=== PATIENT | female | born 1940 | race Caucasian/White ===

== ENCOUNTER 2016-06-23 19:25 | Emergency (ER) | payer BC, MEDICARE ==
[~2016-06-23] VITALS: Ht 157.5 cm; Wt 68.0 kg
[~2016-06-23 19:25] MED LIST: AMIN30LI PO; ASPI81TA3 PO; ATOR20TA38 PO; CHOL400T10 PO; CLOP75TA27 PO; CNC30T PO; Carvedilol PO; DARB25VI IV; DOCU-159 PO; IRON100V IV; LOSA25TA2 PO; MEGE40TA17 PO; NEPH PO; PANT40TA3 PO; PARI2VIA IV; SEVE800T7 PO; TRAM50TA2 PO; ZOLP5TAB PO
[2016-06-23 19:44] VITALS: Ht 157.5 cm; Wt 68.0 kg
== END 2016-06-23 19:52 | disposition left against medical advice (07) ==
LOC: E/R 19:25
DX: Z53.21 Procedure and treatment not carried out due to patient leaving prior to being seen by health care provider (principal)

== ENCOUNTER 2016-07-04 22:12 | Inpatient (IN) | payer MEDICARE, BC ==
[~2016-07-04] VITALS: Ht 154.9 cm; Wt 71.5 kg
--- NOTE | 2016-07-04 23:22 | ERA ---
ER Documentation Chief Complaint Date/Time DATE: 07/04/16 TIME: 23:[address] Keen ask pt to come in for fever. pt on HD. Pain on the R knee HPI The patient is a 76-year-old female, presenting to the ER because of intermittent fever for the last 8 days, complains of abdominal pain today, and intermittent diarrhea for the last 4 days. He denies any hematochezia. The abdominal pain is diffuse in 5-10, worse with diarrhea. He denies headache, neck pain, chest pain, dyspnea, vomiting. She does not smoke nor drink. She was sent to the ER by her physician Dr. Keen Past medical history: Chronic kidney disease, CAD, history of non-STEMI, history of mitral valve regurgitation, dyslipidemia, GERD, hypertension Past surgical history: Cholecystectomy, hysterectomy, left upper extremity AV fistula ROS All systems reviewed and are negative except as per history of present illness. Medications Home Meds Active Scripts Clopidogrel Bisulfate (Clopidogrel) 75 Mg Tab, 75 MG PO DAILY for 30 Days Prov:TOAN HECK 02/07/15 [Carvedilol] 6.25 MG TAB No Conflict Check, 12.5 MG PO BID for 30 Days, TAB Prov:TOAN HECK 02/07/15 Atorvastatin Calcium* (Atorvastatin Calcium*) 20 Mg Tab, 40 MG PO HS for 30 Days Prov:TOAN HECK 02/07/15 Tramadol HCl (Tramadol HCl) 50 Mg Tab, 50 MG PO Q8 Y for PAIN, #10 TAB Prov:ROSLYN OLIVARES MD 01/10/15 Reported Medications Cinacalcet* (Sensipar*) 30 Mg Tab, 30 MG PO DAILY, TAB 01/10/15 Docusate Sodium* (Docusate Sodium*) 100 Mg Capsule, 100 MG PO DAILY, CAP 01/10/15 Cholecalciferol* (Vitamin D*) 400 Unit Tablet, 400 UNIT PO DAILY, TAB 01/10/15 Megestrol Acetate* (Megestrol Acetate*) 40 Mg Tablet, 40 MG PO BID, TAB 01/10/15 Zolpidem Tartrate* (Ambien*) 5 Mg Tablet, 5 MG PO HS MAY REPEAT X 1 Y for INSOMNIA, TAB 01/10/15 Amino Acids/Protein Hydrolys (Liquacel 100 Liquid Packet) 30 Ml Liquid.pkt, 30 ML PO Q SCHED DIALYSIS TRM 01/10/15 Darbepoetin Sulaiman In Polysorbat (Aranesp) 25 Mcg/Ml Vial, 25 MCG IV WEEKLY ON 1ST TRMT, VIAL 01/10/15 Iron Sucrose* (Venofer*) 100 Mg/5 Ml Vial, 50 MG IV WEEKLY ON 2ND TRMT, VIAL 01/10/15 Paricalcitol* (Zemplar*) 2 Mcg/Ml Vial, 2 MCG IV 1ST, 2ND,3RD TRMT, VIAL 01/10/15 Multivit/Ca Carb/B Cmplx/Fa* (Carmina-Boris*) 1 Tab Tab, 1 TAB PO DAILY, TAB 01/10/15 Sevelamer Carbonate* (Renvela*) 800 Mg Tablet, 800 MG PO TID 07/28/12 Pantoprazole* (Protonix*) 40 Mg Tablet.dr, 40 MG PO DAILY 07/28/12 Losartan Potassium* (Cozaar*) 25 Mg Tablet, 25 MG PO DAILY 07/28/12 Aspirin* (Aspirin* Chew) 81 Mg Tab.chew, 81 MG PO DAILY 07/28/12 Allergies Allergies: Coded Allergies: vancomycin (Verified Allergy, Unknown, 02/05/15) PMhx/Soc History of Surgery: Yes (cholecystectomy,total hysterectomy) Anesthesia Reaction: No Hx Neurological Disorder: No Hx Respiratory Disorders: No Hx Cardiac Disorders: Yes (HTN) Hx Psychiatric Problems: No Hx Miscellaneous Medical Probl: Yes (arthritis,osteoporosis,SAKSHI AVF, anuric, kidney failure) Hx Alcohol Use: No Hx Substance Use: No Hx Tobacco Use: No Smoking Status: Never smoker Physical Exam Vitals Vital Signs Date Time Temp Pulse Resp B/P Pulse Ox O2 Delivery O2 Flow Rate FiO2 07/05/16 02:13 98.4 07/04/16 22:53 99.9 88 20 117/61 98 Physical Exam Const: No acute distress. Head: Atraumatic. Eyes: Normal Conjunctiva. ENT: Normal External Ears, Nose and Mouth. Neck: Full range of motion. No meningismus. Resp: Clear to auscultation bilaterally. Cardio: Regular rate and rhythm, no murmurs. Abd: Soft, non distended, normal bowel sounds, diffuse abdominal tenderness, no rigidity, rebound, CVA tenderness Skin: No petechiae or rashes. Back: No midline or flank tenderness. Ext: No cyanosis, or edema. Neur: Awake and alert. No focal deficit Psych: Normal Mood and Affect. Result Diagram: 07/04/16 9968 07/04/16 2355 Results 24 hrs Laboratory Tests Test 07/04/16 23:50 07/04/16 23:55 07/05/16 01:30 Erythrocyte Sedimentation Rate 60mm/Hr White Blood Count 12.810^3/ul Red Blood Count 3.4910^6/ul Hemoglobin 10.4g/dl Hematocrit 32.7% Mean Corpuscular Volume 93.7fl Mean Corpuscular Hemoglobin 29.8pg Mean Corpuscular Hemoglobin Concent 31.8g/dl Red Cell Distribution Width 12.9% Platelet Count 04495^3/UL Mean Platelet Volume 9.7fl Neutrophils % 61.9% Lymphocytes % 22.5% Monocytes % 12.4% Eosinophils % 2.3% Basophils % 0.2% Nucleated Red Blood Cells % 0.0/100WBC Neutrophils # 8.010^3/ul Lymphocytes # 2.910^3/ul Monocytes # 1.610^3/ul Eosinophils # 0.310^3/ul Basophils # 0.010^3/ul Nucleated Red Blood Cells # 0.010^3/ul Prothrombin Time 13.7Sec Prothrombin Time Ratio 1.1 INR International Normalized Ratio 1.05 Activated Partial Thromboplast Time 25.8Sec Sodium Level 137mmol/L Potassium Level 4.6mmol/L Chloride Level 96mmol/L Carbon Dioxide Level 29mmol/L Anion Gap 17 Blood Urea Nitrogen 22mg/dl Creatinine 3.86mg/dl Glucose Level 106mg/dl Lactic Acid Level 2.5mmol/L 1.1mmol/L Calcium Level 8.7mg/dl Total Bilirubin 0.0mg/dl Direct Bilirubin 0.00mg/dl Indirect Bilirubin 0.0mg/dl Aspartate Amino Transf (AST/SGOT) 32IU/L Alanine Aminotransferase (ALT/SGPT) 17IU/L Alkaline Phosphatase 175IU/L Troponin I < 0.010ng/ml Total Protein 7.4g/dl Albumin 3.9g/dl Globulin 3.50g/dl Albumin/Globulin Ratio 1.11 Current Medications Medications (Trade) Dose Ordered Sig/Terra Route PRN Reason Start Time Stop Time Status Last Admin Dose Admin Piperacillin Sod/ Tazobactam Sod (Zosyn 2.25gm/ 50ml (Pmx)) 50 ml @ 100 mls/hr ONCE ONCE IVPB 07/05/16 02:30 07/05/16 02:59 DC 07/05/16 02:46 Procedures/MDM [place] [id number] Radiology Main Line: [phone] DIAGNOSTIC IMAGING REPORT Patient: FARSHAD RODRIGUEZ : 1940 Age: 76 Sex: F MR #: [id number] DOS: 07/04/162322 Ordering MD: ALYSON BRAND MD Location: E/R Room/Bed: PROCEDURE: XR Knee. CLINICAL INDICATION: Right knee pain. TECHNIQUE: Three views of the right knee. COMPARISON: None available FINDINGS: There is no acute fracture or dislocation. The lateral compartment demonstrates moderate to severe joint space narrowing, subchondral sclerosis, and moderate osteophytosis. There is minimal patellar osteophytosis. No joint effusion is identified. IMPRESSION: 1. No acute fracture or dislocation of the right knee. 2. Moderate to severe lateral compartment arthrosis. RPTAT: HTAR .Lorenzo Wilkins MD, Date Time Electronically viewed and signed by .Lorenzo Wilkins MD, MD on 07/05/2016 00:24 .R/ CC: ALYSON BRAND MD [place] [id number] Radiology Main Line: [phone] DIAGNOSTIC IMAGING REPORT Patient: FARSHAD RODRIGUEZ : 1940 Age: 76 Sex: F MR #: [id number] DOS: 07/04/162322 Ordering MD: ALYSON BRAND MD Location: E/R Room/Bed: PROCEDURE: Portable chest x-ray. CLINICAL INDICATION: Sepsis. TECHNIQUE: Portable AP view of the chest. COMPARISON: 02/05/2015. FINDINGS: There is vascular congestion, unchanged. No pulmonary edema or conolidation is identified. The cardiac silhouette is magnified. There are aortic calcifications. No pleural effusion is seen. There is no pneumothorax. IMPRESSION: 1. Central vascular congestion. 2. Aortic atherosclerosis. RPTAT: HTAR .Lorenzo Wilkins MD, MD Date Time Electronically viewed and signed by .Lorenzo Wilkins MD, MD on 07/05/2016 00:22 .R/ CC: ALYSON BRAND MD [place] [address] Radiology Main Line: [phone] DIAGNOSTIC IMAGING REPORT Patient: FARSHAD RODRIGUEZ : 1940 Age: 76 Sex: F MR #: [id number] DOS: 07/04/16 2352 Ordering MD: ALYSON BRAND MD Location: E/R Room/Bed: PROCEDURE: CT Abdomen and Pelvis without contrast. CLINICAL INDICATION: Abdominal pain, history of hysterectomy and cholecystectomy. TECHNIQUE: A CT scan of the abdomen and pelvis was performed without intravenous contrast. Coronal and sagittal reformatted images were generated. Images were reviewed on a high-resolution PACS workstation. CTDIvol: 14.46 mGy. DLP: 116.29 mGy-cm. One or more of the following dose reduction techniques were used: - Automated exposure control. - Adjustment of the mA and/or kV according to patient size. - Use of iterative reconstruction technique. COMPARISON: None. FINDINGS: There are mild to moderate atelectatic changes in both lower lungs. The heart is enlarged. Evaluation of the abdominal and pelvic viscera is limited by the lack of oral and intravenous contrast. The liver is unremarkable. The patient is status post cholecystectomy. There is mild extrahepatic biliary ductal dilatation (CBD: 10 mm), probably due to absence of the gallbladder. The spleen is not enlarged. No pancreatic lesion is identified and there is no pancreatic ductal dilatation. The adrenal glands are unremarkable. The kidneys are atrophic There is no perinephric fat stranding. No hydronephrosis is seen. No urinary stone is identified. There are cysts in both kidneys measuring up to 1.2 cm on the left. The small and large bowel are normal in caliber. There is no bowel wall thickening. The appendix is not identified. The urinary bladder is unremarkable. The patient is status post hysterectomy. No adnexal mass is seen. No lymphadenopathy is identified. There is no ascites. No pneumoperitoneum is seen. There are moderate arterial calcifications. There are calcified injection granulomas in the subcutaneous fat of both buttocks. There is periumbilical diastasis recti. No suspicious osseous lesion is idenitified. IMPRESSION: 1. No inflammation, mass, or lymphadenopathy. 2. Atrophic kidneys without hydronephrosis or urinary stones. 3. The appendix is not identified. 4. Status post cholecystectomy and hysterectomy. 5. Moderate atherosclerotic arterial calcifications. 6. Cardiomegaly. 7. Periumbilical diastasis recti. RPTAT: HTAR .Lorenzo Wilkins MD, MD Date Time Electronically viewed and signed by .Lorenzo Wilkins MD, MD on 07/05/2016 02:00 .R/ CC: ALYSON BRAND MD EKG: Read by emergency physician Rate/Rhythm: Normal Sinus Rhythm 85 beats/min QRS, ST, T-waves: No ST elevation, no T inversion, septal Q waves Impression: Abnormal EKG MEDICAL MAKING DECISION: The patient is a 76-year-old female, presenting to the ER because of acute severe sepsis, acute abdominal pain of unclear etiology, associated with diarrhea. She was treated with Zosyn IV. The differential diagnoses considered include but are not limited to cholelithiasis, cholecystitis, cystitis, pancreatitis, hepatitis, gastritis, peptic ulcer disease, gastric ulcer, appendicitis, diverticulitis, cholangitis, choledocholithiasis, partial small bowel obstruction. Admit MDM: Patient's infectious symptoms have not stabilized and the patient is at risk of rapid decompensation. The patient will be admitted for careful hydration, antibiotic therapy, and infectious source control. Severe Sepsis criteria: Infectious source: Unknown End organ damage indicated by: Lactate > 2.0 mmol/L Sepsis Management: Time of recognition of severe sepsis/septic shock: 12:05 am Within 3 hours of recognition: Blood cultures x 2 before broad-spectrum antibiotics: Yes 30 ml/kg NS bolus not completed because patient has chronic kidney disease Initial lactate 2.5 Repeat lactate pending Critical Care: Critical care time 35 minutes Emergent fluid management while maintaining close respiratory support. Provision of immediate and broad-spectrum antibiotic therapy. Simultaneous assessment for possible sources in order to direct targeted therapy. Consideration for invasive and chemical support to prevent cardiopulmonary collapse. Septic Shock Assessment: Any lactic acid > 4.0 no Persistent hypotension (SBP < 90 or 40 mmHg drop, MAP < 65) despite 30 mL/kg IV fluid bolusno Departure Diagnosis: Primary Impression: Severe sepsis Additional Impressions: Abdominal pain Anemia Knee pain, right Condition: Stable Comments I discussed the findings with the patient. I discussed the patient with her physician Dr. Keen who was made aware of the lab, the treatment, the patient condition. The patient is admitted to [facility] at 2:10 am ALYSON BRAND MD Jul 04, 2016 23:22
[2016-07-05 00:09] LABS: ADD SCAN DIFF NO
[2016-07-05 00:12] LABS: ABNORMAL IP MESSAGE 1; BASOPHILS % 0.2 % (0.0-2.0); EOSINOPHILS # 0.3 10^3/ul (0.0-0.5); EOSINOPHILS % 2.3 % (0.0-7.0); HEMATOCRIT 32.7 % (37.0-47.0); HEMOGLOBIN 10.4 g/dl (12.0-16.0); LYMPHOCYTES # 2.9 10^3/ul (0.8-2.9); LYMPHOCYTES % 22.5 % (15.0-51.0); MEAN CORPUSCULAR HEMOGLOBIN 29.8 pg (29.0-33.0); MEAN CORPUSCULAR HGB CONC 31.8 g/dl (32.0-37.0); MEAN CORPUSCULAR VOLUME 93.7 fl (82.0-101.0); MEAN PLATELET VOLUME 9.7 fl (7.4-10.4); MONOCYTE # 1.6 10^3/ul (0.3-0.9); MONOCYTES % 12.4 % (0.0-11.0); NEUTROPHILS % 61.9 % (39.0-77.0); PLATELET COUNT 272 10^3/UL (140-415); RED BLOOD COUNT 3.49 10^6/ul (4.20-5.40); RED CELL DISTRIBUTION WIDTH 12.9 % (11.5-14.5); WHITE BLOOD COUNT 12.8 10^3/ul (4.8-10.8)
--- NOTE | 2016-07-05 00:22 | RADRPT ---
PROCEDURE: Portable chest x-ray. CLINICAL INDICATION: Sepsis. TECHNIQUE: Portable AP view of the chest. COMPARISON: 02/05/2015. FINDINGS: There is vascular congestion, unchanged. No pulmonary edema or conolidation is identified. The card iac silhouette is magnified. There are aortic calcifications. No pleural effusion is seen. There i s no pneumothorax. IMPRESSION: 1. Central vascular congestion. 2. Aortic atherosclerosis. RPTAT: HTAR .Lorenzo Wilkins MD, MD Date Time Electronically viewed and signed by .Lorenzo Wilkins MD, MD on 07/05/2016 00:22 .R/
--- NOTE | 2016-07-05 00:24 | RADRPT ---
PROCEDURE: XR Knee. CLINICAL INDICATION: Right knee pain. TECHNIQUE: Three views of the right knee. COMPARISON: None available FINDINGS: There is no acute fracture or dislocation. The lateral compartment demonstrates moderate to severe j oint space narrowing, subchondral sclerosis, and moderate osteophytosis. There is minimal patellar o steophytosis. No joint effusion is identified. IMPRESSION: 1. No acute fracture or dislocation of the right knee. 2. Moderate to severe lateral compartment arthrosis. RPTAT: HTAR .Lorenzo Wilkins MD, MD Date Time Electronically viewed and signed by .Lorenzo Wilkins MD, on 07/05/2016 00:24 .R/
[2016-07-05 00:39] LABS: ALANINE AMINOTRANSFERASE 17 IU/L (13-69); ALBUMIN 3.9 g/dl (3.3-4.9); ALBUMIN/GLOBULIN RATIO 1.11; ALKALINE PHOSPHATASE 175 IU/L (42-121); ANION GAP 17 (8-16); ASPARTATE AMINO TRANSFERASE 32 IU/L (15-46); BLOOD UREA NITROGEN 22 mg/dl (7-20); CALCIUM 8.7 mg/dl (8.4-10.2); CARBON DIOXIDE 29 mmol/L (21-31); CHLORIDE 96 mmol/L (97-110); CREATININE 3.86 mg/dl (0.44-1.00); GLUCOSE 106 mg/dl (70-220); POTASSIUM 4.6 mmol/L (3.5-5.1); SODIUM 137 mmol/L (135-144); TOTAL PROTEIN 7.4 g/dl (6.1-8.1)
[2016-07-05 00:48] LABS: INR 1.05; PROTIME 13.7 Sec (12.2-14.2); PT RATIO 1.1
[2016-07-05 00:49] LABS: PARTIAL THROMBOPLASTIN TIME 25.8 Sec (25.0-35.0)
[2016-07-05 00:52] LABS: TROPONIN-I < 0.010 ng/ml (0.00-0.12)
--- NOTE | 2016-07-05 02:00 | RADRPT ---
PROCEDURE: CT Abdomen and Pelvis without contrast. CLINICAL INDICATION: Abdominal pain, history of hysterectomy and cholecystectomy. TECHNIQUE: A CT scan of the abdomen and pelvis was performed without intravenous contrast. Vuong l and sagittal reformatted images were generated. Images were reviewed on a high-resolution PACS wor kstation. CTDIvol: 14.46 mGy. DLP: 116.29 mGy-cm. One or more of the following dose reduction techniques were used: - Automated exposure control. - Adjustment of the mA and/or kV according to patient size. - Use of iterative reconstruction technique. COMPARISON: None. FINDINGS: There are mild to moderate atelectatic changes in both lower lungs. The heart is enlarged. Evaluation of the abdominal and pelvic viscera is limited by the lack of oral and intravenous contra st. The liver is unremarkable. The patient is status post cholecystectomy. There is mild extrahepatic b iliary ductal dilatation (CBD: 10 mm), probably due to absence of the gallbladder. The spleen is no t enlarged. No pancreatic lesion is identified and there is no pancreatic ductal dilatation. The adr enal glands are unremarkable. The kidneys are atrophic There is no perinephric fat stranding. No hydronephrosis is seen. No urinar y stone is identified. There are cysts in both kidneys measuring up to 1.2 cm on the left. The small and large bowel are normal in caliber. There is no bowel wall thickening. The appendix is not identified. The urinary bladder is unremarkable. The patient is status post hysterectomy. No adnexal mass is se en. No lymphadenopathy is identified. There is no ascites. No pneumoperitoneum is seen. There are modera te arterial calcifications. There are calcified injection granulomas in the subcutaneous fat of both buttocks. There is periumbilical diastasis recti. No suspicious osseous lesion is idenitified. IMPRESSION: 1. No inflammation, mass, or lymphadenopathy. 2. Atrophic kidneys without hydronephrosis or urinary stones. 3. The appendix is not identified. 4. Status post cholecystectomy and hysterectomy. 5. Moderate atherosclerotic arterial calcifications. 6. Cardiomegaly. 7. Periumbilical diastasis recti. RPTAT: HTAR .Lorenzo Wilkins MD, Date Time Electronically viewed and signed by .Lorenzo Wilkins MD, on 07/05/2016 02:00 .R/
[2016-07-05 02:13] VITALS: TEMP 98.4
[2016-07-05] MEDS ORDERED: PIPER-TAZO 2.25 GM (PMX) 50 ML IVPB ONE (02:30)
[2016-07-05 04:16] VITALS: Ht 154.9 cm; Wt 71.5 kg
[2016-07-05 04:34] VITALS: BP 139/64; RESP 20
[2016-07-05] MEDS ORDERED: PROTEIN HYDROLYS PO SCH (06:00)
[2016-07-05] MEDS ORDERED: IRON SUCROSE IV SCH (06:00)
[2016-07-05] MEDS ORDERED: ZOLPIDEM 5 MG TAB PO PRN (06:00)
[2016-07-05] MEDS ORDERED: AMINO ACIDS PO SCH (06:00)
[2016-07-05] MEDS ORDERED: DARBEPOETIN ALFA IN POLYSORBAT 25 MCG IV SCH (06:00)
[2016-07-05] MEDS ORDERED: [UNRECOGNIZED DRUG - OTHER] PO SCH (06:00)
[2016-07-05] MEDS: PANTOPRAZOLE (EC) 40 MG TAB PO SCH (06:28)
[2016-07-05 08:10] VITALS: BP 107/55; RESP 20
[2016-07-05] MEDS: MULTIVIT/CA CARB/B CMPLX/FA TAB PO SCH (08:41)
[2016-07-05] MEDS: LEVOFLOXACIN 250MG/D5W (PMX) 50 ML IVPB SCH (08:41)
[2016-07-05] MEDS: ASPIRIN 81 MG TAB PO SCH (08:43)
[2016-07-05] MEDS: MEGESTROL 40 MG TAB PO SCH ×2 (08:43→20:32)
[2016-07-05] MEDS: CINACALCET 30 MG TAB PO SCH (08:45)
[2016-07-05] MEDS: SEVELAMER CARBONATE 0.8 GM PKT PO SCH ×3 (08:45→20:32)
[2016-07-05] MEDS: CLOPIDOGREL 75 MG TAB PO SCH (08:45)
[2016-07-05] MEDS: DOCUSATE SODIUM 100 MG CAP PO SCH (08:45)
[2016-07-05] MEDS: CHOLECALCIFEROL 400 UNITS TAB PO SCH (08:45)
[2016-07-05] MEDS: traMADol 50 MG TAB PO PRN ×2 (08:47→20:33)
[2016-07-05] MEDS: LOSARTAN 25 MG TAB PO SCH (09:00)
[2016-07-05 20:25] VITALS: BP 105/58; RESP 20
[2016-07-05] MEDS: ATORVASTATIN 20 MG TAB PO SCH (20:32)
--- NOTE | 2016-07-05 22:26 | QN ---
Documentation Comment [id number] BELKIS INTERIANO MD Jul 05, 2016 22:26
--- NOTE | 2016-07-06 03:33 | HP ---
DATE OF ADMISSION: 07/05/2016 HISTORY OF PRESENT ILLNESS: The patient is a 76-year-old female who was admitted with complaints of fever for the last 8 days, as per ER note, abdominal pain, intermittent diarrhea for the last 4 days, and also complaining of both upper extremities pain. The patient was noted with WBC 12.8, hematocrit 32.7, platelet count of 272. Sodium 137, potassium 4.6. The patient had abdominal CT scan done that shows no lesion, inflammation, mass, or lymphadenopathy, atrophic kidneys without hydronephrosis or stones, appendix is not identified, status post cholecystectomy, hysterectomy, moderate atherosclerosis, arterial calcification, and cardiomegaly, periumbilical . The patient also had chest x-ray showing central vascular congestion. The patient has knee x-ray which shows no acute fracture or dislocation of the right knee, moderate to severe lateral compartment atherosclerosis. The patient is admitted for further management. PAST MEDICAL HISTORY: As mentioned above. The patient has non-ST elevation myocardial infarction, mitral valve regurgitation, hypertension, ESRD, dyslipidemia, osteoarthritis, GERD. ALLERGY HISTORY: . SOCIAL HISTORY: Negative. FAMILY HISTORY: Negative. MEDICATION HISTORY: The patient is currently on 1. pain meds. 2. Aspirin. 3. Atorvastatin. 4. Cholecalciferol. 5. Sensipar. 6. Plavix. 7. Darbepoetin. 8. Docusate sodium. 9. Iron. 10. Losartan. 11. Megace. 12. Multivitamin. 13. mvi. 14. Zemplar. 15. Renvela. 16. Tramadol. 17. Ambien. 18. liqacel. REVIEW OF SYSTEMS: HEENT: Unremarkable. RESPIRATORY: No shortness of breath. ABDOMEN: Complaining of some abdominal pain. No diarrhea at this point. EXTREMITIES: No edema. CENTRAL NERVOUS SYSTEM: Unremarkable except the patient has numbness and tingling of both upper extremities. PHYSICAL EXAMINATION: GENERAL: The patient is awake, alert. VITAL SIGNS: Stable. HEENT: Head is atraumatic. HEAD: Atraumatic, normocephalic. Pupils equal, reactive to light. NECK: Supple. No JVD. LUNGS: Clear. CARDIOVASCULAR: S1, S2 normal. Systolic murmur noted at the apex. ABDOMEN: Soft, nontender. Bowel sounds positive. No palpable mass or hepatosplenomegaly. EXTREMITIES: There is no cyanosis, clubbing. Trace edema. CENTRAL NERVOUS SYSTEM: The patient is awake, alert, no focal deficit. MUSCULOSKELETAL: both upper and lower extremities noted. LABORATORY DATA: WBC 12.8, hematocrit 32.7. IMPRESSION: The patient has 1. Systemic inflammatory response syndrome. 2. Leukocytosis. 3. Hypertension 4. End-stage renal disease. 5. Anemia. 6. Both upper extremities degenerative joint disease. Possible carpal tunnel syndrome. 7. Elevated ESR. 8. Intermittent diarrhea. PLAN: At this point is to obtain a UA, stool for C and S and C. difficile. Continue home medication. Orthopedic consultation. The patient will be monitored very closely. Dictated By: BELKIS HERNANDEZ/HEATHER Conf#: [id number] DID#: [id number] MTDD
[2016-07-06] MEDS: PANTOPRAZOLE (EC) 40 MG TAB PO SCH (05:46)
[2016-07-06 06:48] LABS: ADD SCAN DIFF NO; BASOPHILS % 0.1 % (0.0-2.0); EOSINOPHILS # 0.3 10^3/ul (0.0-0.5); EOSINOPHILS % 2.5 % (0.0-7.0); HEMATOCRIT 30.1 % (37.0-47.0); HEMOGLOBIN 9.7 g/dl (12.0-16.0); LYMPHOCYTES # 2.6 10^3/ul (0.8-2.9); LYMPHOCYTES % 23.7 % (15.0-51.0); MEAN CORPUSCULAR HGB CONC 32.2 g/dl (32.0-37.0); MEAN CORPUSCULAR VOLUME 93.2 fl (82.0-101.0); MEAN PLATELET VOLUME 9.8 fl (7.4-10.4); MONOCYTE # 1.3 10^3/ul (0.3-0.9); MONOCYTES % 11.8 % (0.0-11.0); NEUTROPHIL # 6.7 10^3/ul (1.6-7.5); NEUTROPHILS % 61.3 % (39.0-77.0); PLATELET COUNT 236 10^3/UL (140-415); RED BLOOD COUNT 3.23 10^6/ul (4.20-5.40); RED CELL DISTRIBUTION WIDTH 12.8 % (11.5-14.5)
[2016-07-06 07:04] LABS: ALBUMIN 3.3 g/dl (3.3-4.9)
[2016-07-06 07:06] LABS: BILIRUBIN,INDIRECT 0.1 mg/dl (0-1.1); BILIRUBIN,TOTAL 0.1 mg/dl (0.2-1.3); CREATININE 6.7 mg/dl (0.44-1.00)
[2016-07-06 07:07] LABS: ALBUMIN/GLOBULIN RATIO 1.03; TOTAL PROTEIN 6.5 g/dl (6.1-8.1)
[2016-07-06 07:08] LABS: CALCIUM 8.1 mg/dl (8.4-10.2)
[2016-07-06 07:46] VITALS: BP 101/57; RESP 22
[2016-07-06] MEDS: LEVOFLOXACIN 250MG/D5W (PMX) 50 ML IVPB SCH (08:34)
[2016-07-06] MEDS: CINACALCET 30 MG TAB PO SCH (08:40)
[2016-07-06] MEDS: ASPIRIN 81 MG TAB PO SCH (08:40)
[2016-07-06] MEDS: CHOLECALCIFEROL 400 UNITS TAB PO SCH (08:40)
[2016-07-06] MEDS: DOCUSATE SODIUM 100 MG CAP PO SCH (08:40)
[2016-07-06] MEDS: MEGESTROL 40 MG TAB PO SCH ×2 (08:40→20:42)
[2016-07-06] MEDS: MULTIVIT/CA CARB/B CMPLX/FA TAB PO SCH (08:40)
[2016-07-06] MEDS: CLOPIDOGREL 75 MG TAB PO SCH (08:40)
[2016-07-06] MEDS: LOSARTAN 25 MG TAB PO SCH (08:42)
[2016-07-06] MEDS: SEVELAMER CARBONATE 0.8 GM PKT PO SCH ×3 (08:55→20:42)
[2016-07-06 19:46] VITALS: BP 105/57; RESP 20
[2016-07-06] MEDS: ATORVASTATIN 20 MG TAB PO SCH (20:42)
--- NOTE | 2016-07-06 22:41 | PN ---
Date/Time of Note Date/Time of Note DATE: 07/06/16 TIME: 22:40 Assessment/Plan VTE Prophylaxis VTE Prophylaxis Intervention: other Lines/Catheters IV [facility]from [facility] Urinary Cath still in place: No Assessment/Plan Chief Complaint/Hosp Course IMPRESSION: The patient has 1. Systemic inflammatory response syndrome. 2. Leukocytosis. 3. Hypertension 4. End-stage renal disease. 5. Anemia. 6. Both upper extremities degenerative joint disease. Possible carpal tunnel syndrome. 7. Elevated ESR. 8. Intermittent diarrhea. plan hd am Problems: Subjective 24 Hr Interval Summary Constitutional: no complaints Eyes: no complaints Exam/Review of Systems Vital Signs Vitals Vital Signs Date Time Temp Pulse Resp B/P Pulse Ox O2 Delivery O2 Flow Rate FiO2 07/06/16 19:46 97.3 71 20 105/57 99 07/05/16 03:00 Room Air Intake and Output 07/05/16 07/05/16 07/06/16 14:59 22:59 06:59 Intake Total 50 ml 780 ml Balance 50 ml 780 ml Exam Neck: supple Respiratory: clear to auscultation Cardiovascular: regular rate and rhythm Gastrointestinal: soft Musculoskeletal: nl extremities to inspection Extremities: normal pulses Results Result Diagram: 07/06/16 0537 07/06/16 0537 Results 24 hrs Laboratory Tests Test 07/06/16 05:37 White Blood Count 11.0 H Red Blood Count 3.23 L Hemoglobin 9.7 L Hematocrit 30.1 L Mean Corpuscular Volume 93.2 Mean Corpuscular Hemoglobin 30.0 Mean Corpuscular Hemoglobin Concent 32.2 Red Cell Distribution Width 12.8 Platelet Count 236 Mean Platelet Volume 9.8 Neutrophils % 61.3 Lymphocytes % 23.7 Monocytes % 11.8 H Eosinophils % 2.5 Basophils % 0.1 Nucleated Red Blood Cells % 0.0 Neutrophils # 6.7 Lymphocytes # 2.6 Monocytes # 1.3 H Eosinophils # 0.3 Basophils # 0.0 Nucleated Red Blood Cells # 0.0 Sodium Level 132 L Potassium Level 5.0 Chloride Level 94 L Carbon Dioxide Level 24 Anion Gap 19 H Blood Urea Nitrogen 47 #H Creatinine 6.70 #H Glucose Level 90 Calcium Level 8.1 L Total Bilirubin 0.1 L Direct Bilirubin 0.00 Indirect Bilirubin 0.1 Aspartate Amino Transf (AST/SGOT) 23 Alanine Aminotransferase (ALT/SGPT) 21 Alkaline Phosphatase 90 Total Protein 6.5 Albumin 3.3 Globulin 3.20 Albumin/Globulin Ratio 1.03 Medications Medications Current Medications Aspirin (Aspirin) 81 mg DAILY PO Last administered on 07/06/16 08:40; Admin Dose 81 MG; Start 07/05/16 at 09:00 Atorvastatin Calcium (Lipitor) 40 mg HS PO Last administered on 07/06/16 20:42 ; Admin Dose 40 MG; Start 07/05/16 at 21:00 Cholecalciferol (Vitamin D) 400 units DAILY PO Last administered on 07/06/16 08 :40; Admin Dose 400 UNITS; Start 07/05/16 at 09:00 Cinacalcet (Sensipar) 30 mg DAILY PO Last administered on 07/06/16 08:40; Admin Dose 30 MG; Start 07/05/16 at 09:00 Clopidogrel Bisulfate (plaVIX) 75 mg DAILY PO Last administered on 07/06/16 08: 40; Admin Dose 75 MG; Start 07/05/16 at 09:00 Docusate Sodium (Colace) 100 mg DAILY PO Last administered on 07/06/16 08:40; Admin Dose 100 MG; Start 07/05/16 at 09:00 Losartan Potassium (Cozaar) 25 mg DAILY PO ; Start 07/05/16 at 09:00 Megestrol Acetate (Megace) 40 mg BID PO Last administered on 07/06/16 20:42; Admin Dose 40 MG; Start 07/05/16 at 09:00 Multivit/Ca Carb/ B Cmplx/FA/Prenat (Carmina-Boris) 1 tab DAILY PO Last administered on 07/06/16 08:40; Admin Dose 1 TAB; Start 07/05/16 at 09:00 Pantoprazole (Protonix Tab) 40 mg DAILY@06 PO Last administered on 07/06/16 05: 46; Admin Dose 40 MG; Start 07/05/16 at 06:00 Sevelamer Carbonate (Renvela) 0.8 gm TID PO Last administered on 07/06/16 20:42 ; Admin Dose 0.8 GM; Start 07/05/16 at 09:00 Tramadol HCl (Ultram) 50 mg Q8 PRN PO PAIN Last administered on 07/05/16 20:33 ; Admin Dose 50 MG; Start 07/05/16 at 06:00 Carvedilol 12.5 mg 12.5 mg BID PO Last administered on 07/06/16 08:41; Admin Dose 12.5 MG; Start 07/05/16 at 09:00 Levofloxacin/ Dextrose (Levaquin 250 Mg/ D5W 50 ml (Pmx)) 50 ml @ 50 mls/hr Q24H IVPB Last administered on 07/06/16 08:34; Admin Dose 50 MLS/HR; Start 07/05 at 08:00 BELKIS INTERIANO MD Jul 06, 2016 22:41
[2016-07-07] VITALS (11 sets, daily range): BP systolic 82–126; BP diastolic 42–65; PULSE 70–81; RESP 17–18
[2016-07-07] MEDS: traMADol 50 MG TAB PO PRN ×2 (02:38→16:32)
[2016-07-07 05:49] LABS: ADD SCAN DIFF NO
[2016-07-07 05:52] LABS: BASOPHILS % 0.2 % (0.0-2.0); EOSINOPHILS # 0.2 10^3/ul (0.0-0.5); EOSINOPHILS % 1.8 % (0.0-7.0); HEMATOCRIT 28.1 % (37.0-47.0); HEMOGLOBIN 9.2 g/dl (12.0-16.0); LYMPHOCYTES # 2.9 10^3/ul (0.8-2.9); LYMPHOCYTES % 23.3 % (15.0-51.0); MEAN CORPUSCULAR HEMOGLOBIN 29.9 pg (29.0-33.0); MEAN CORPUSCULAR HGB CONC 32.7 g/dl (32.0-37.0); MEAN CORPUSCULAR VOLUME 91.2 fl (82.0-101.0); MEAN PLATELET VOLUME 9.5 fl (7.4-10.4); MONOCYTE # 1.3 10^3/ul (0.3-0.9); MONOCYTES % 10.2 % (0.0-11.0); PLATELET COUNT 232 10^3/UL (140-415); RED BLOOD COUNT 3.08 10^6/ul (4.20-5.40); RED CELL DISTRIBUTION WIDTH 12.8 % (11.5-14.5); WHITE BLOOD COUNT 12.5 10^3/ul (4.8-10.8)
[2016-07-07] MEDS: PANTOPRAZOLE (EC) 40 MG TAB PO SCH (05:57)
[2016-07-07] MEDS: MULTIVIT/CA CARB/B CMPLX/FA TAB PO SCH (08:37)
[2016-07-07] MEDS: DOCUSATE SODIUM 100 MG CAP PO SCH (08:37)
[2016-07-07] MEDS: CINACALCET 30 MG TAB PO SCH (08:37)
[2016-07-07] MEDS: ASPIRIN 81 MG TAB PO SCH (08:37)
[2016-07-07] MEDS: CLOPIDOGREL 75 MG TAB PO SCH (08:37)
[2016-07-07] MEDS: SEVELAMER CARBONATE 0.8 GM PKT PO SCH ×3 (08:37→20:22)
[2016-07-07] MEDS: MEGESTROL 40 MG TAB PO SCH ×2 (08:38→20:21)
[2016-07-07] MEDS: CHOLECALCIFEROL 400 UNITS TAB PO SCH (08:38)
[2016-07-07] MEDS: LOSARTAN 25 MG TAB PO SCH (08:38)
[2016-07-07] MEDS: LEVOFLOXACIN 250MG/D5W (PMX) 50 ML IVPB SCH (08:43)
[2016-07-07] MEDS ORDERED: BUPIVACAINE 0.5%/EPI (SDV) 30 ML INJ INJ ONE (14:00)
[2016-07-07] MEDS ORDERED: BETAMET NA PHOS/AC(6 MG/ML) 5ML INJ INJ ONE (14:00)
--- NOTE | 2016-07-07 16:47 | CONS ---
DATE OF ADMISSION: 07/05/2016 DATE OF CONSULTATION: 07/07/2016 HISTORY OF PRESENT ILLNESS: The patient is a 76-year-old female who is known to me for her orthoped ic surgical evaluation and followup as an outpatient. She was admitted on 07/05/2016, when she came to the emergency room complaining of fever of about 8 days duration along with the abdominal pain a nd diarrhea of 4 days' duration. She was also complaining of pain involving both upper extremities. Following her initial evaluation in the emergency room, she was admitted under the diagnosis of sy stemic inflammatory response syndrome with leukocytosis for further evaluation and treatment. She i s also known to have multiple other medical problems including end-stage renal disease, hypertension and anemia. Orthopedic surgery was consulted because she was complaining of pain involving both her wrists and h ands along with tingling and numbness. She was also complaining of pain involving her right knee. My examination revealed a 76-year-old female who was going through the dialysis. She was complainin g of pain involving both wrists and hands, along with the numbness and tingling which she has been g oing on for several years. The pain is worse over the left wrist. However, symptoms are bilateral. There was a minimal thenar muscle atrophy. There was hypoesthesia over the median nerve dermatom e over both hands. Tinel's sign was positive and Phalen's test was positive. There was a mild effusion involving the right knee along with the tenderness over the medial aspect of the right knee. There was again no varus and there was a mild limit of motion with pain involvin g the right knee. DIAGNOSTIC STUDIES: X-rays of the right knee revealed the presence of degenerative osteoarthritis w hich is moderately advanced. DIAGNOSTIC IMPRESSION: 1. Carpal tunnel syndrome of both wrists. 2. Degenerative osteoarthritis of moderate degree involving the right knee. RECOMMENDATIONS FOR TREATMENT: 1. For now is trial injection of steroid into the carpal tunnel of both wrists. 2. If she is persistently symptomatic even after the steroid injection of the carpal tunnel of both wrists then a surgical release of the carpal tunnel of both wrists have to be considered. 3. Intraarticular steroid injection into the right knee. Dictated By: ADRIANA COLON/HEATHER Conf#: [id number] [facility]#: [id number]
[2016-07-07] MEDS: ATORVASTATIN 20 MG TAB PO SCH (20:22)
--- NOTE | 2016-07-07 22:53 | PN ---
Date/Time of Note Date/Time of Note DATE: 07/07/16 TIME: 22:51 Assessment/Plan VTE Prophylaxis VTE Prophylaxis Intervention: other Lines/Catheters IV Catheter Type (from [facility]): Saline Lock Urinary Cath still in place: No Assessment/Plan Chief Complaint/Hosp Course IMPRESSION: The patient has 1. Systemic inflammatory response syndrome. 2. Leukocytosis. 3. Hypertension 4. End-stage renal disease. 5. Anemia. 6. Both upper extremities degenerative joint disease. Possible carpal tunnel syndrome. 7. Elevated ESR. 8. Intermittent diarrhea. 9 carpal tunnel syndrome plan hd per ortho pain meds Problems: Subjective 24 Hr Interval Summary Subjective hx not possible: other (joint pain better) Exam/Review of Systems Vital Signs Vitals Vital Signs Date Time Temp Pulse Resp B/P Pulse Ox O2 Delivery O2 Flow Rate FiO2 07/07/16 20:20 98.8 81 18 126/65 95 Room Air Intake and Output 07/06/16 07/06/16 07/07/16 15:00 23:00 07:00 Intake Total 820 ml 240 ml Balance 820 ml 240 ml Exam Respiratory: clear to auscultation Cardiovascular: regular rate and rhythm Gastrointestinal: soft Musculoskeletal: joint tenderness, nl extremities to inspection Results Result Diagram: 07/07/16 0510 07/06/16 0537 Results 24 hrs Laboratory Tests Test 07/07/16 05:10 White Blood Count 12.5 H Red Blood Count 3.08 L Hemoglobin 9.2 L Hematocrit 28.1 L Mean Corpuscular Volume 91.2 Mean Corpuscular Hemoglobin 29.9 Mean Corpuscular Hemoglobin Concent 32.7 Red Cell Distribution Width 12.8 Platelet Count 232 Mean Platelet Volume 9.5 Neutrophils % 64.0 Lymphocytes % 23.3 Monocytes % 10.2 Eosinophils % 1.8 Basophils % 0.2 Nucleated Red Blood Cells % 0.0 Neutrophils # 8.0 H Lymphocytes # 2.9 Monocytes # 1.3 H Eosinophils # 0.2 Basophils # 0.0 Nucleated Red Blood Cells # 0.0 Medications Medications Current Medications Aspirin (Aspirin) 81 mg DAILY PO Last administered on 07/07/16 08:37; Admin Dose 81 MG; Start 07/05/16 at 09:00 Atorvastatin Calcium (Lipitor) 40 mg HS PO Last administered on 07/07/16 20:22 ; Admin Dose 40 MG; Start 07/05/16 at 21:00 Cholecalciferol (Vitamin D) 400 units DAILY PO Last administered on 07/07/16 08:38; Admin Dose 400 UNITS; Start 07/05/16 at 09:00 Cinacalcet (Sensipar) 30 mg DAILY PO Last administered on 07/07/16 08:37; Admin Dose 30 MG; Start 07/05/16 at 09:00 Clopidogrel Bisulfate (plaVIX) 75 mg DAILY PO Last administered on 07/07/16 08 :37; Admin Dose 75 MG; Start 07/05/16 at 09:00 Docusate Sodium (Colace) 100 mg DAILY PO Last administered on 07/07/16 08:37; Admin Dose 100 MG; Start 07/05/16 at 09:00 Losartan Potassium (Cozaar) 25 mg DAILY PO Last administered on 07/07/16 08:38 ; Admin Dose 25 MG; Start 07/05/16 at 09:00 Megestrol Acetate (Megace) 40 mg BID PO Last administered on 07/07/16 20:21; Admin Dose 40 MG; Start 07/05/16 at 09:00 Multivit/Ca Carb/ B Cmplx/FA/Prenat (Carmina-Boris) 1 tab DAILY PO Last administered on 07/07/16 08:37; Admin Dose 1 TAB; Start 07/05/16 at 09:00 Pantoprazole (Protonix Tab) 40 mg DAILY@06 PO Last administered on 07/07/16 05 :57; Admin Dose 40 MG; Start 07/05/16 at 06:00 Sevelamer Carbonate (Renvela) 0.8 gm TID PO Last administered on 07/07/16 20: 22; Admin Dose 0.8 GM; Start 07/05/16 at 09:00 Tramadol HCl (Ultram) 50 mg Q8 PRN PO PAIN Last administered on 07/07/16 16:32 ; Admin Dose 50 MG; Start 07/05/16 at 06:00 Carvedilol 12.5 mg 12.5 mg BID PO Last administered on 07/07/16 20:22; Admin Dose 12.5 MG; Start 07/05/16 at 09:00 Levofloxacin/ Dextrose (Levaquin 250 Mg/ D5W 50 ml (Pmx)) 50 ml @ 50 mls/hr Q24H IVPB Last administered on 07/07/16t 08:43; Admin Dose 50 MLS/HR; Start 07/05/16 at 08:00 BELKIS INTERIANO MD Jul 07, 2016 22:53
[2016-07-08] MEDS: traMADol 50 MG TAB PO PRN (02:38)
[2016-07-08] MEDS: PANTOPRAZOLE (EC) 40 MG TAB PO SCH (05:36)
[2016-07-08 07:45] VITALS: BP 139/72; RESP 20
[2016-07-08] MEDS: CHOLECALCIFEROL 400 UNITS TAB PO SCH (08:48)
[2016-07-08] MEDS: CINACALCET 30 MG TAB PO SCH (08:48)
[2016-07-08] MEDS: DOCUSATE SODIUM 100 MG CAP PO SCH (08:48)
[2016-07-08] MEDS: SEVELAMER CARBONATE 0.8 GM PKT PO SCH ×2 (08:48→12:02)
[2016-07-08] MEDS: ASPIRIN 81 MG TAB PO SCH (08:48)
[2016-07-08] MEDS: CLOPIDOGREL 75 MG TAB PO SCH (08:48)
[2016-07-08] MEDS: MULTIVIT/CA CARB/B CMPLX/FA TAB PO SCH (08:48)
[2016-07-08] MEDS: MEGESTROL 40 MG TAB PO SCH (08:48)
[2016-07-08] MEDS: LEVOFLOXACIN 250MG/D5W (PMX) 50 ML IVPB SCH (08:48)
[2016-07-08] MEDS: LOSARTAN 25 MG TAB PO SCH (08:49)
--- NOTE | 2016-07-08 16:27 | PDOCDIS ---
Discharge Instructions CONDITION Patient Condition: Stable HOME CARE INSTRUCTIONS: Special Diet: 2 gr sodium ACTIVITY: Activity Restrictions: Slowly Increase Activity FOLLOW UP/APPOINTMENTS Appointments f/u dr interiano 2 wks BELKIS INTERIANO MD Jul 08, 2016 16:26
--- NOTE | 2016-07-15 07:59 | PQ ---
Date/Time of Note Date/Time of Note DATE: 07/15/16 TIME: 07:50 Physician Query Documentation Clarification Dear Dr. Interiano, A review of the medical record found a need for documentation clarification. 76-year-old female who was admitted with complaints of fever for the last 8 days , as per ER note, abdominal pain, intermittent diarrhea for the last 4 days, and also complaining of both upper extremities pain LABORATORY DATA: WBC 12.8, hematocrit 32.7. IMPRESSION: The patient has 1. Systemic inflammatory response syndrome. 2. Leukocytosis. 6. Both upper extremities degenerative joint disease. Possible carpal tunnel syndrome. 7. Elevated ESR. 8. Intermittent diarrhea. - progress note/ H & P ER -Severe Sepsis Please clarify a diagnosis being treated. To facilitate accurate and complete coding, please johana ( x ) the suspected diagnosis that apply: ( x ) SIRS with Sepsis present on admission ( ) SIRS without Sepsis ( ) Unable to clinically determine ( ) Thank you for your time. Teodoro Yuen RN, BSN, CCS, CCDS Clinical Fabric Inspector Health Information Management, CDI and Coding Services [phone] Room # 1525 - Coding [address]~ [address] TEODORO YUEN Jul 15, 2016 07:59 BELKIS INTERIANO MD Jul 15, 2016 10:05
== END 2016-07-08 17:45 | disposition home or self-care (01) | DRG 871 ==
LOC: E/R 22:12 → MS2 07-05 02:14
PROVIDERS: ADMIT Internal Medicine Nephrology; ATTEND Internal Medicine Nephrology
DX: A41.9 Sepsis, unspecified organism (principal); N18.6 End stage renal disease; I12.0 Hypertensive chronic kidney disease with stage 5 chronic kidney disease or end stage renal disease; D64.9 Anemia, unspecified; D72.829 Elevated white blood cell count, unspecified; R19.7 Diarrhea, unspecified; G56.03 Carpal tunnel syndrome, bilateral upper limbs; M19.011 Primary osteoarthritis, right shoulder; M19.012 Primary osteoarthritis, left shoulder; M17.11 Unilateral primary osteoarthritis, right knee; I25.2 Old myocardial infarction; Z79.82 Long term (current) use of aspirin
CPT/HCPCS: 36415; 71010; 73562; 74176; 80053; 81003; 83605; 84484; 85025; 85610; 85651; 85730; 87040; 87045; 90935; 93005; 96374; J0702; J1956; J2543

== ENCOUNTER 2016-08-05 08:54 | Emergency (ER) | payer MEDICARE, BC ==
[~2016-08-05] VITALS: Wt 69.0 kg
--- NOTE | 2016-08-05 10:31 | RADRPT ---
PROCEDURE: XR Chest. CLINICAL INDICATION: Chest pain TECHNIQUE: Single frontal view of the chest was obtained COMPARISON: 02/05/15 FINDINGS: The heart is enlarged. The thoracic aorta is calcified. There are mild increased interstitial changes throughout the lungs. The lungs are otherwise clear. There is no pleural effusion or pneumothorax. RPTAT: AA IMPRESSION: Mild cardiomegaly. Calcified aorta consistent with atherosclerotic disease. Mild increased interstitial changes throughout the lungs. .Fer Rosales MD, MD Date Time Electronically viewed and signed by .Fer Rosales MD, on 08/05/2016 10:31 .S/
[2016-08-05 10:33] LABS: ADD SCAN DIFF NO
[2016-08-05 10:36] LABS: BASOPHILS % 0.2 % (0.0-2.0); EOSINOPHILS # 0.6 10^3/ul (0.0-0.5); EOSINOPHILS % 6.8 % (0.0-7.0); HEMATOCRIT 35.4 % (37.0-47.0); HEMOGLOBIN 11.6 g/dl (12.0-16.0); LYMPHOCYTES # 2.5 10^3/ul (0.8-2.9); LYMPHOCYTES % 26.3 % (15.0-51.0); MEAN CORPUSCULAR HEMOGLOBIN 31.3 pg (29.0-33.0); MEAN CORPUSCULAR HGB CONC 32.8 g/dl (32.0-37.0); MEAN CORPUSCULAR VOLUME 95.4 fl (82.0-101.0); MEAN PLATELET VOLUME 9.7 fl (7.4-10.4); MONOCYTE # 1.3 10^3/ul (0.3-0.9); MONOCYTES % 13.4 % (0.0-11.0); NEUTROPHILS % 52.9 % (39.0-77.0); PLATELET COUNT 263 10^3/UL (140-415); RED BLOOD COUNT 3.71 10^6/ul (4.20-5.40); RED CELL DISTRIBUTION WIDTH 14.3 % (11.5-14.5); WHITE BLOOD COUNT 9.5 10^3/ul (4.8-10.8)
[2016-08-05 10:53] LABS: INR 1.05; PROTIME 13.7 Sec (12.2-14.2); PT RATIO 1.1
[2016-08-05 10:54] LABS: PARTIAL THROMBOPLASTIN TIME 26.7 Sec (25.0-35.0)
[2016-08-05 10:59] LABS: ALANINE AMINOTRANSFERASE 23 IU/L (13-69); ALBUMIN 3.9 g/dl (3.3-4.9); ALBUMIN/GLOBULIN RATIO 1.18; ALKALINE PHOSPHATASE 109 IU/L (42-121); ANION GAP 17 (8-16); ASPARTATE AMINO TRANSFERASE 22 IU/L (15-46); BILIRUBIN,INDIRECT 0.1 mg/dl (0-1.1); BILIRUBIN,TOTAL 0.1 mg/dl (0.2-1.3); CALCIUM 8.6 mg/dl (8.4-10.2); CARBON DIOXIDE 33 mmol/L (21-31); CHLORIDE 93 mmol/L (97-110); CREATININE 6.25 mg/dl (0.44-1.00); GLUCOSE 89 mg/dl (70-220); POTASSIUM 4.8 mmol/L (3.5-5.1); SODIUM 138 mmol/L (135-144); TOTAL PROTEIN 7.2 g/dl (6.1-8.1)
[2016-08-05 11:17] LABS: BLOOD UREA NITROGEN 39 mg/dl (7-20); TROPONIN-I < 0.012 ng/ml (0.00-0.12)
[2016-08-05 12:01] VITALS: BP 117/68; PULSE 78; RESP 16; TEMP 99.2
--- NOTE | 2016-08-05 12:19 | ERD ---
ER Documentation Chief Complaint Date/Time DATE: 08/05/16 TIME: 12:18 Chief Complaint BACK PAIN AFTER DIALYSIS YESTERDAY. FEVER AND GEN FATIGUE. NO FEVER TODAY. HPI Patient is a 76-year-old female with dialysis, hypertension, and coronary disease who presents she has a fever. She feels like she might have an infection in her blood. The symptoms started today. She feels weak all over. She denies pain. She had a full dialysis done yesterday. She has no treatment as of yet. Upon review of old medical records this patient has had multiple visits for various complaints. The primary doctor is Dr. Osborne. ROS All systems reviewed and are negative except as per history of present illness. Medications Home Meds Active Scripts Acetaminophen* (Tylenol*) 325 Mg Tablet, 2 TAB PO Q8 Y for PAIN AND OR ELEVATED TEMP, #20 TAB Prov:GELY WHITE MD 08/05/16 Acetaminophen* (Tylenol*) 325 Mg Tablet, 2 TAB PO Q8 Y for PAIN AND OR ELEVATED TEMP, #20 TAB Prov:GELY WHITE MD 08/05/16 Clopidogrel Bisulfate (Clopidogrel) 75 Mg Tab, 75 MG PO DAILY for 30 Days Prov:TOAN HECK 02/07/15 [Carvedilol] 6.25 MG TAB No Conflict Check, 12.5 MG PO BID for 30 Days, TAB Prov:TOAN HECK 02/07/15 Atorvastatin Calcium* (Atorvastatin Calcium*) 20 Mg Tab, 40 MG PO HS for 30 Days Prov:TOAN HECK 02/07/15 Tramadol HCl (Tramadol HCl) 50 Mg Tab, 50 MG PO Q8 Y for PAIN, #10 TAB Prov:ROSLYN OLIVARES MD 01/10/15 Reported Medications Cinacalcet* (Sensipar*) 30 Mg Tab, 30 MG PO DAILY, TAB 01/10/15 Docusate Sodium* (Docusate Sodium*) 100 Mg Capsule, 100 MG PO DAILY, CAP 01/10/15 Cholecalciferol* (Vitamin D*) 400 Unit Tablet, 400 UNIT PO DAILY, TAB 01/10/15 Megestrol Acetate* (Megestrol Acetate*) 40 Mg Tablet, 40 MG PO BID, TAB 01/10/15 Zolpidem Tartrate* (Ambien*) 5 Mg Tablet, 5 MG PO HS MAY REPEAT X 1 Y for INSOMNIA, TAB 01/10/15 Amino Acids/Protein Hydrolys (Liquacel 100 Liquid Packet) 30 Ml Liquid.pkt, 30 ML PO Q SCHED DIALYSIS TRM 01/10/15 Darbepoetin Sulaiman In Polysorbat (Aranesp) 25 Mcg/Ml Vial, 25 MCG IV WEEKLY ON 1ST TRMT, VIAL 01/10/15 Iron Sucrose* (Venofer*) 100 Mg/5 Ml Vial, 50 MG IV WEEKLY ON 2ND TRMT, VIAL 01/10/15 Paricalcitol* (Zemplar*) 2 Mcg/Ml Vial, 2 MCG IV 1ST, 2ND,3RD TRMT, VIAL 01/10/15 Multivit/Ca Carb/B Cmplx/Fa* (Carmina-Boris*) 1 Tab Tab, 1 TAB PO DAILY, TAB 01/10/15 Sevelamer Carbonate* (Renvela*) 800 Mg Tablet, 800 MG PO TID 07/28/12 Pantoprazole* (Protonix*) 40 Mg Tablet.dr, 40 MG PO DAILY 07/28/12 Losartan Potassium* (Cozaar*) 25 Mg Tablet, 25 MG PO DAILY 07/28/12 Aspirin* (Aspirin* Chew) 81 Mg Tab.chew, 81 MG PO DAILY 07/28/12 Allergies Allergies: Coded Allergies: vancomycin (Verified Allergy, Unknown, 08/05/16) PMhx/Soc History of Surgery: Yes (cholecystectomy,hysterectomy) Anesthesia Reaction: No Hx Neurological Disorder: No Hx Respiratory Disorders: No Hx Cardiac Disorders: Yes (HTN,CAD,DYSLIPIDEMIA) Hx Psychiatric Problems: No Hx Miscellaneous Medical Probl: Yes (ARTHRITIS, DIALYSIS) Hx Alcohol Use: No Hx Substance Use: No Hx Tobacco Use: No Smoking Status: Never smoker FmHx Family History: No diabetes Physical Exam Vitals Vital Signs Date Time Temp Pulse Resp B/P Pulse Ox O2 Delivery O2 Flow Rate FiO2 08/05/16 12:01 99.2 78 16 117/68 99 Room Air 08/05/16 09:02 99.2 81 20 103/59 97 Physical Exam Const: No acute distress Head: Atraumatic Eyes: Normal Conjunctiva ENT: Normal External Ears, Nose and Mouth. Neck: Full range of motion..~ No meningismus. Resp: Clear to auscultation bilaterally Cardio: Regular rate and rhythm, no murmurs Abd: Soft, non tender, non distended. Normal bowel sounds Skin: No petechiae or rashes Back: No midline or flank tenderness Ext: No cyanosis, or edema Neur: Awake and alert Psych: Normal Mood and Affect Result Diagram: 08/05/16 1000 08/05/16 1000 Results 24 hrs Laboratory Tests Test 08/05/16 10:00 08/05/16 10:15 08/05/16 11:50 White Blood Count 9.510^3/ul Red Blood Count 3.7110^6/ul Hemoglobin 11.6g/dl Hematocrit 35.4% Mean Corpuscular Volume 95.4fl Mean Corpuscular Hemoglobin 31.3pg Mean Corpuscular Hemoglobin Concent 32.8g/dl Red Cell Distribution Width 14.3% Platelet Count 27443^3/UL Mean Platelet Volume 9.7fl Neutrophils % 52.9% Lymphocytes % 26.3% Monocytes % 13.4% Eosinophils % 6.8% Basophils % 0.2% Nucleated Red Blood Cells % 0.0/100WBC Neutrophils # 5.010^3/ul Lymphocytes # 2.510^3/ul Monocytes # 1.310^3/ul Eosinophils # 0.610^3/ul Basophils # 0.010^3/ul Nucleated Red Blood Cells # 0.010^3/ul Prothrombin Time 13.7Sec Prothrombin Time Ratio 1.1 INR International Normalized Ratio 1.05 Activated Partial Thromboplast Time 26.7Sec Sodium Level 138mmol/L Potassium Level 4.8mmol/L Chloride Level 93mmol/L Carbon Dioxide Level 33mmol/L Anion Gap 17 Blood Urea Nitrogen 39mg/dl Creatinine 6.25mg/dl Glucose Level 89mg/dl Calcium Level 8.6mg/dl Total Bilirubin 0.1mg/dl Direct Bilirubin 0.00mg/dl Indirect Bilirubin 0.1mg/dl Aspartate Amino Transf (AST/SGOT) 22IU/L Alanine Aminotransferase (ALT/SGPT) 23IU/L Alkaline Phosphatase 109IU/L Troponin I < 0.012ng/ml Total Protein 7.2g/dl Albumin 3.9g/dl Globulin 3.30g/dl Albumin/Globulin Ratio 1.18 Lactic Acid Level 0.9mmol/L 2.1mmol/L Procedures/MDM EKG read by me: Rate/Rhythm: Regular rate and rhythm at a rate of 76 Intervals: Normal Impression: No evidence of ischemia or arrhythmia Chest x-ray showed no pneumonia per radiology. Patient is a 76-year-old female who presents with diffuse weakness and subjective fever. She has no fever in the emergency department and she did not take any antipyretics prior to arrival. Her white blood cell count and lactic acid are normal. She has chronic renal failure but her potassium is normal. She has anemia but does not require transfusion. At this point I believe outpatient management is appropriate. The patient need to follow-up closely with the primary doctor within 24 hours and can return if symptoms worsen. I doubt sepsis or other serious bacterial infection. Departure Diagnosis: Primary Impression: Weakness Additional Impressions: Back pain Back pain location: back pain in unspecified location Chronicity: acute Back pain laterality: unspecified Qualified Code: M54.9 - Acute back pain, unspecified back location, unspecified back pain laterality Anemia Anemia type: unspecified type Qualified Code: D64.9 - Anemia, unspecified type Condition: Fair Patient Instructions: Back Pain (Acute Or Chronic), Weakness, Unk Cause Additional Instructions: Llame al doctor MAAJAY y taylor lee ann JAYCE PARA DENTRO DE 1-2 GUERRA.Dgale a la secretaria que nosotros le instruimos hacer esta jayce.Avise o llame si tran condicin se empeora antes de la jayce. Regresa aqui si peor o no mejor. GELY WHITE MD August 05, 2016 12:19
[2016-08-05] MEDS ORDERED: ACET325T33 PO ×2 (12:30→12:37)
== END 2016-08-05 12:26 | disposition home or self-care (01) ==
LOC: FTE 08:54 → E/R 12:26
DX: R53.1 Weakness (principal); R40.2252 Coma scale, best verbal response, oriented, at arrival to emergency department; D64.9 Anemia, unspecified; I10 Essential (primary) hypertension; I25.10 Atherosclerotic heart disease of native coronary artery without angina pectoris; R07.9 Chest pain, unspecified; R40.2142 Coma scale, eyes open, spontaneous, at arrival to emergency department; R40.2362 Coma scale, best motor response, obeys commands, at arrival to emergency department; Z79.82 Long term (current) use of aspirin
CPT/HCPCS: 36415; 71010; 80053; 83605; 84484; 85025; 85610; 85730; 87040; 93005

== ENCOUNTER 2016-08-05 21:31 | Inpatient (IN) | payer MEDICARE, BC ==
[~2016-08-05] VITALS: Ht 154.9 cm; Wt 70.7 kg
[~2016-08-05 21:31] MED LIST changes: +ACET325T33 PO
[2016-08-05 23:35] LABS: ADD SCAN DIFF NO
[2016-08-05 23:38] LABS: BASOPHILS % 0.2 % (0.0-2.0); EOSINOPHILS # 0.6 10^3/ul (0.0-0.5); EOSINOPHILS % 6.6 % (0.0-7.0); HEMATOCRIT 36.6 % (37.0-47.0); LYMPHOCYTES # 2.6 10^3/ul (0.8-2.9); MEAN CORPUSCULAR HEMOGLOBIN 31.1 pg (29.0-33.0); MEAN CORPUSCULAR HGB CONC 32.8 g/dl (32.0-37.0); MEAN CORPUSCULAR VOLUME 94.8 fl (82.0-101.0); MEAN PLATELET VOLUME 9.9 fl (7.4-10.4); MONOCYTE # 1.3 10^3/ul (0.3-0.9); NEUTROPHILS % 51.9 % (39.0-77.0); PLATELET COUNT 257 10^3/UL (140-415); RED BLOOD COUNT 3.86 10^6/ul (4.20-5.40); RED CELL DISTRIBUTION WIDTH 14.4 % (11.5-14.5); WHITE BLOOD COUNT 9.6 10^3/ul (4.8-10.8)
--- NOTE | 2016-08-05 23:47 | RADRPT ---
PROCEDURE: XR Chest. CLINICAL INDICATION: Possible sepsis. TECHNIQUE: Portable AP upright view of the chest was obtained. COMPARISON: 07/04/2016 FINDINGS: The cardiomediastinal silhouette is mildly enlarged with dense calcification of the mitral annulus a gain noted. The lungs are clear of acute infiltrates. There is no evidence for pleural effusion, p neumothorax or pulmonary vascular congestion. The osseous structures are intact with no evidence fo r acute abnormality. Calcification of the aorta is again seen. RPTAT:HJJR IMPRESSION: 1. Mild cardiac silhouette enlargement without evidence for acute intrathoracic pathology, improved aeration of the lungs compared to 07/04/2016. 2. Dense calcification of the mitral annulus with aortic atherosclerotic calcification again seen. Physician Dre Date Time Electronically viewed and signed by Physician Dre on 08/05/2016 23:47 JR/
[2016-08-05 23:49] LABS: INR 1.16; PARTIAL THROMBOPLASTIN TIME 25.6 Sec (25.0-35.0); PROTIME 14.8 Sec (12.2-14.2); PT RATIO 1.2
[2016-08-05 23:50] LABS: ALANINE AMINOTRANSFERASE 20 IU/L (13-69); ALBUMIN 4.1 g/dl (3.3-4.9); ALKALINE PHOSPHATASE 107 IU/L (42-121); ANION GAP 20 (8-16); ASPARTATE AMINO TRANSFERASE 24 IU/L (15-46); BILIRUBIN,INDIRECT 0.1 mg/dl (0-1.1); BILIRUBIN,TOTAL 0.1 mg/dl (0.2-1.3); BLOOD UREA NITROGEN 48 mg/dl (7-20); CALCIUM 8.8 mg/dl (8.4-10.2); CARBON DIOXIDE 30 mmol/L (21-31); CHLORIDE 93 mmol/L (97-110); CREATININE 7.16 mg/dl (0.44-1.00); GLUCOSE 109 mg/dl (70-220); POTASSIUM 4.7 mmol/L (3.5-5.1); SODIUM 138 mmol/L (135-144); TOTAL PROTEIN 7.5 g/dl (6.1-8.1)
[2016-08-06] VITALS (15 sets, daily range): BP systolic 99–126; BP diastolic 52–67; PULSE 72–81; RESP 16–18; TEMP 99.4; Ht 154.9 cm; Wt 70.7 kg
[2016-08-06 00:01] LABS: TROPONIN-I < 0.012 ng/ml (0.00-0.12)
--- NOTE | 2016-08-06 01:36 | ERA ---
ER Documentation Chief Complaint Date/Time DATE: 08/06/16 TIME: 01:35 Chief Complaint weak ness, fever, seen this morning today, dialysis pt HPI This 76-year-old female with complaints of weakness and subjective fever. She was seen earlier this morning discharged home with a normal workup. Comes back in for similar complaints. No other current issues. ROS All systems reviewed and are negative except as per history of present illness. Medications Home Meds Active Scripts Acetaminophen* (Tylenol*) 325 Mg Tablet, 2 TAB PO Q8 Y for PAIN AND OR ELEVATED TEMP, #20 TAB Prov:GELY WHITE MD 08/05/16 Acetaminophen* (Tylenol*) 325 Mg Tablet, 2 TAB PO Q8 Y for PAIN AND OR ELEVATED TEMP, #20 TAB Prov:GELY WHITE MD 08/05/16 Clopidogrel Bisulfate (Clopidogrel) 75 Mg Tab, 75 MG PO DAILY for 30 Days Prov:TOAN HECK 02/07/15 [Carvedilol] 6.25 MG TAB No Conflict Check, 12.5 MG PO BID for 30 Days, TAB Prov:TOAN HECK 02/07/15 Atorvastatin Calcium* (Atorvastatin Calcium*) 20 Mg Tab, 40 MG PO HS for 30 Days Prov:TOAN HECK 02/07/15 Tramadol HCl (Tramadol HCl) 50 Mg Tab, 50 MG PO Q8 Y for PAIN, #10 TAB Prov:ROSLYN OLIVARES MD 01/10/15 Reported Medications Cinacalcet* (Sensipar*) 30 Mg Tab, 30 MG PO DAILY, TAB 01/10/15 Docusate Sodium* (Docusate Sodium*) 100 Mg Capsule, 100 MG PO DAILY, CAP 01/10/15 Cholecalciferol* (Vitamin D*) 400 Unit Tablet, 400 UNIT PO DAILY, TAB 01/10/15 Megestrol Acetate* (Megestrol Acetate*) 40 Mg Tablet, 40 MG PO BID, TAB 01/10/15 Zolpidem Tartrate* (Ambien*) 5 Mg Tablet, 5 MG PO HS MAY REPEAT X 1 Y for INSOMNIA, TAB 01/10/15 Amino Acids/Protein Hydrolys (Liquacel 100 Liquid Packet) 30 Ml Liquid.pkt, 30 ML PO Q SCHED DIALYSIS TRM 01/10/15 Darbepoetin Sulaiman In Polysorbat (Aranesp) 25 Mcg/Ml Vial, 25 MCG IV WEEKLY ON 1ST TRMT, VIAL 01/10/15 Iron Sucrose* (Venofer*) 100 Mg/5 Ml Vial, 50 MG IV WEEKLY ON 2ND TRMT, VIAL 01/10/15 Paricalcitol* (Zemplar*) 2 Mcg/Ml Vial, 2 MCG IV 1ST, 2ND,3RD TRMT, VIAL 01/10/15 Multivit/Ca Carb/B Cmplx/Fa* (Carmina-Boris*) 1 Tab Tab, 1 TAB PO DAILY, TAB 01/10/15 Sevelamer Carbonate* (Renvela*) 800 Mg Tablet, 800 MG PO TID 07/28/12 Pantoprazole* (Protonix*) 40 Mg Tablet.dr, 40 MG PO DAILY 07/28/12 Losartan Potassium* (Cozaar*) 25 Mg Tablet, 25 MG PO DAILY 07/28/12 Aspirin* (Aspirin* Chew) 81 Mg Tab.chew, 81 MG PO DAILY 07/28/12 Allergies Allergies: Coded Allergies: vancomycin (Verified Allergy, Unknown, 08/05/16) PMhx/Soc History of Surgery: Yes (cholecystectomy,hysterectomy) Anesthesia Reaction: No Hx Neurological Disorder: No Hx Respiratory Disorders: No Hx Cardiac Disorders: Yes (HTN,CAD,DYSLIPIDEMIA) Hx Psychiatric Problems: No Hx Miscellaneous Medical Probl: Yes (ARTHRITIS, DIALYSIS) Hx Alcohol Use: No Hx Substance Use: No Hx Tobacco Use: No Smoking Status: Never smoker Physical Exam Vitals Vital Signs Date Time Temp Pulse Resp B/P Pulse Ox O2 Delivery O2 Flow Rate FiO2 08/06/16 01:25 99.4 77 20 106/57 96 Room Air 08/06/16 00:00 99.4 78 20 100/64 98 Room Air 08/05/16 21:35 99.4 88 20 112/59 98 Physical Exam Const: [] Head: Atraumatic Eyes: Normal Conjunctiva ENT: Normal External Ears, Nose and Mouth. Neck: Full range of motion..~ No meningismus. Resp: Clear to auscultation bilaterally Cardio: Regular rate and rhythm, no murmurs Abd: Soft, non tender, non distended. Normal bowel sounds Skin: No petechiae or rashes Back: No midline or flank tenderness Ext: No cyanosis, or edema Neur: Awake and alert Psych: Normal Mood and Affect Result Diagram: 08/05/16 2324 08/05/16 2324 Results 24 hrs Laboratory Tests Test 08/05/16 23:24 White Blood Count 9.610^3/ul Red Blood Count 3.8610^6/ul Hemoglobin 12.0g/dl Hematocrit 36.6% Mean Corpuscular Volume 94.8fl Mean Corpuscular Hemoglobin 31.1pg Mean Corpuscular Hemoglobin Concent 32.8g/dl Red Cell Distribution Width 14.4% Platelet Count 53549^3/UL Mean Platelet Volume 9.9fl Neutrophils % 51.9% Lymphocytes % 27.0% Monocytes % 14.0% Eosinophils % 6.6% Basophils % 0.2% Nucleated Red Blood Cells % 0.0/100WBC Neutrophils # 5.010^3/ul Lymphocytes # 2.610^3/ul Monocytes # 1.310^3/ul Eosinophils # 0.610^3/ul Basophils # 0.010^3/ul Nucleated Red Blood Cells # 0.010^3/ul Prothrombin Time 14.8Sec Prothrombin Time Ratio 1.2 INR International Normalized Ratio 1.16 Activated Partial Thromboplast Time 25.6Sec Sodium Level 138mmol/L Potassium Level 4.7mmol/L Chloride Level 93mmol/L Carbon Dioxide Level 30mmol/L Anion Gap 20 Blood Urea Nitrogen 48mg/dl Creatinine 7.16mg/dl Glucose Level 109mg/dl Lactic Acid Level 1.6mmol/L Calcium Level 8.8mg/dl Total Bilirubin 0.1mg/dl Direct Bilirubin 0.00mg/dl Indirect Bilirubin 0.1mg/dl Aspartate Amino Transf (AST/SGOT) 24IU/L Alanine Aminotransferase (ALT/SGPT) 20IU/L Alkaline Phosphatase 107IU/L Troponin I < 0.012ng/ml Total Protein 7.5g/dl Albumin 4.1g/dl Globulin 3.40g/dl Albumin/Globulin Ratio 1.20 Procedures/MDM EKG: Rate/Rhythm: [Normal Sinus Rhythm] QRS, ST, T-waves: [No changes consistent w/ acute ischemia] Impression: [No evidence of ischemia or arrhythmia] Chest X-ray 1V Interpreted by me: Soft Tissue: No acute abnormalities Bones: No acute abnormalities Mediastinum/Cardiac Silhouette/Lungs: [No acute abnormalities] Medical decision makin-year-old female with generalized weakness. No acute pathology noted on her initial examination. Given that she is, twice for similar complaint, the patient is to be admitted for evaluation and management. Patient will be to Dr. Shell is on-call for the primary care physician. Departure Diagnosis: Primary Impression: Acute weakness Condition: Stable LETI KU August 06, 2016 01:36
[2016-08-06] MEDS ORDERED: [UNRECOGNIZED DRUG - OTHER] PO SCH (03:30)
[2016-08-06] MEDS ORDERED: DARBEPOETIN ALFA IN POLYSORBAT 25 MCG IV SCH (03:30)
[2016-08-06] MEDS ORDERED: ACETAMINOPHEN 325 MG TAB PO PRN (03:30)
[2016-08-06] MEDS ORDERED: traMADol 50 MG TAB PO PRN (03:30)
[2016-08-06] MEDS ORDERED: AMINO ACIDS PO SCH (03:30)
[2016-08-06] MEDS ORDERED: IRON SUCROSE IV SCH (03:30)
[2016-08-06] MEDS ORDERED: PROTEIN HYDROLYS PO SCH (03:30)
[2016-08-06 06:23] LABS: ADD SCAN DIFF NO
[2016-08-06 06:35] LABS: BASOPHILS % 0.2 % (0.0-2.0); EOSINOPHILS # 0.6 10^3/ul (0.0-0.5); EOSINOPHILS % 6.5 % (0.0-7.0); HEMATOCRIT 31.3 % (37.0-47.0); HEMOGLOBIN 10.2 g/dl (12.0-16.0); LYMPHOCYTES # 2.5 10^3/ul (0.8-2.9); LYMPHOCYTES % 28.1 % (15.0-51.0); MEAN CORPUSCULAR HEMOGLOBIN 30.9 pg (29.0-33.0); MEAN CORPUSCULAR HGB CONC 32.6 g/dl (32.0-37.0); MEAN CORPUSCULAR VOLUME 94.8 fl (82.0-101.0); MEAN PLATELET VOLUME 9.6 fl (7.4-10.4); MONOCYTE # 1.2 10^3/ul (0.3-0.9); MONOCYTES % 13.5 % (0.0-11.0); NEUTROPHIL # 4.5 10^3/ul (1.6-7.5); NEUTROPHILS % 51.2 % (39.0-77.0); PLATELET COUNT 235 10^3/UL (140-415); RED CELL DISTRIBUTION WIDTH 14.4 % (11.5-14.5); WHITE BLOOD COUNT 8.7 10^3/ul (4.8-10.8)
[2016-08-06] MEDS: PANTOPRAZOLE (EC) 40 MG TAB PO SCH (06:41)
[2016-08-06 06:45] LABS: POTASSIUM 4.6 mmol/L (3.5-5.1)
[2016-08-06] MEDS: traMADol 50 MG TAB PO PRN (06:46)
[2016-08-06 06:47] LABS: CREATININE 7.97 mg/dl (0.44-1.00)
[2016-08-06 06:48] LABS: CALCIUM 8.3 mg/dl (8.4-10.2)
[2016-08-06] MEDS ORDERED: SOD CHLORIDE 0.9% IVPB SCH (07:00)
[2016-08-06] MEDS ORDERED: SOD FERRIC GLUC COMPLX IVPB SCH (07:00)
[2016-08-06] MEDS: LOSARTAN 25 MG TAB PO SCH (09:00)
[2016-08-06] MEDS: SEVELAMER CARBONATE 0.8 GM PKT PO SCH ×3 (09:20→21:04)
[2016-08-06] MEDS: CINACALCET 30 MG TAB PO SCH (09:20)
[2016-08-06] MEDS: CLOPIDOGREL 75 MG TAB PO SCH (09:21)
[2016-08-06] MEDS: MEGESTROL 40 MG TAB PO SCH ×2 (09:21→21:03)
[2016-08-06] MEDS: ASPIRIN 81 MG TAB PO SCH (09:21)
[2016-08-06] MEDS: DOCUSATE SODIUM 100 MG CAP PO SCH (09:21)
[2016-08-06] MEDS: MULTIVIT/CA CARB/B CMPLX/FA TAB PO SCH (09:25)
[2016-08-06] MEDS: CHOLECALCIFEROL 400 UNITS TAB PO SCH (09:25)
--- NOTE | 2016-08-06 12:40 | HP ---
DATE OF ADMISSION: 08/06/2016 CHIEF COMPLAINT: Fevers and chills, generalized weakness and bilateral lower extremity pain and num bness. HISTORY OF PRESENT ILLNESS: The patient is a 76-year-old female with past medical history positive for end-stage renal disease, hemodialysis dependent. The patient stated that she had last dialysis on Thursday08/04/2016. The patient also with right knee osteoarthritis, carpal tunnel syndrome, hype rtension, dyslipidemia, osteoarthritis, moderate coronary artery disease, nonobstructive per left he art catheterization in 01/[address] Zimmer. On presentation to the emergency room, the patie nt's temperature was 99.4, pulse 88, respiratory rate 20, blood pressure 112/59, oxygen saturation 9 8% on room air. The patient denies any nausea, vomiting. Denies cough. Denies chest pain. The pa tient complains of headache. However, denies any leg pain. Denies any shoulder pain. The patient underwent chest x-ray which revealed mild cardiac silhouette enlargement without evidence for acute intrathoracic pathology, improved aeration of the lungs compared to 07/04, dense calcification of th e mitral annulus with aortic atherosclerotic calcifications again seen. The patient also had negati ve troponin on admission. Lactic acid is 1.6 However, the patient presented to the emergency room yesterday with similar complaints and was discharged home. However, patient felt worse and continue s to have subjective fever and chills and presented to the emergency room last night again. The pat ient will be admitted for further evaluation and management. PAST MEDICAL HISTORY: Per HPI. PAST SURGICAL HISTORY: Status post cholecystectomy, status post hysterectomy more than 30 years ago . SOCIAL HISTORY: The patient lives at home. The patient denies any tobacco use, denies any alcohol use, denies any illicit drug use. FAMILY HISTORY: Noncontributory. ALLERGIES: THE PATIENT IS ALLERGIC TO VANCOMYCIN. HOME MEDICATIONS: Include: 1. Tylenol. 2. Plavix. 3. Coreg. 4. Atorvastatin. 5. Tramadol. 6. Sensipar. 7. Colace. 8. Vitamin D. 9. Megace. 10. Ambien. 11. Aranesp. 12. Venofer. 13. Zemplar. 14. Carmina-Boris. 15. Renvela. 16. Protonix. 17. Cozaar 18. Aspirin. REVIEW OF SYSTEMS: A 12-point review of systems is negative unless what mentioned in the HPI. PHYSICAL ASSESSMENT: GENERAL: Well-developed, well-nourished female. Currently, the patient is awake, alert. HEENT: Head is atraumatic, normocephalic. Pupils are equal, round, reactive to light and accommoda tion. Oral mucosa is pink and moist. NECK: Supple, no cervical lymphadenopathy, no thyromegaly. CHEST: Lungs clear bilaterally. There is no rhonchi, wheezes, rales noted. CARDIOVASCULAR: Normal S1, S2. No murmurs, gallops, clicks, rubs noted. ABDOMEN: Protuberant, soft, nondistended, nontender. Bowel sounds present. There is no guarding, no rebound tenderness. EXTREMITIES: There is no edema, clubbing, cyanosis. Pulses equal bilaterally 2+. The patient has a left upper extremity AV fistula with a palpable thrill and audible bruit. SKIN: There is no rash, petechiae noted. NEUROLOGICAL: The patient is awake, alert and oriented x4. No focal deficits noted. MUSCULOSKELETAL: Motor strength is 5/5 in all extremities. LABORATORY DATA: On admission, CBC: White blood cells 9.6, hemoglobin 12.0, hematocrit 36.6, plate lets 257. Chemistry: Sodium is 138, potassium 4.7, chloride 93, carbon dioxide 30, anion gap 20, B UN is 47, creatinine 7.1, glucose 109. AST is 24, ALT is 20, alkaline phosphatase 107. ASSESSMENT AND PLAN: 1. Febrile illness. We will obtain blood cultures with next hemodialysis x2. Obtain urine culture . 2. Hemodialysis dependent, end-stage renal disease. as patient's research center partner will be foll owing patient in nephrology consultation. The patient will get hemodialysis today. 3. Diastolic congestive heart failure. Continue Coreg. 4. Hypertension. Continue Cozaar. 5. Osteoarthritis. 6. Dyslipidemia. Continue statin. 7. Nonobstructive moderate coronary artery disease. Continue patient on Plavix. 8. We will continue Protonix for peptic ulcer disease prophylaxis. Further recommendations based on clinical course. Plan of care discussed with Dr. Davison. Dictated By: CHARLES DANIELSON [employer] for NADINE DAVISON MD SR/NTS Conf#: [id number] [facility]#: [id number]
[2016-08-06] MEDS: CEFTRIAXONE 1 GM/50 ML (PMX) 50 ML IVPB SCH ×2 (16:00→18:47)
[2016-08-06] MEDS: ACETAMINOPHEN 325 MG TAB PO PRN (16:41)
[2016-08-06] MEDS: ATORVASTATIN 40 MG TAB PO SCH (21:03)
--- NOTE | 2016-08-07 00:08 | CONS ---
Date/Time of Note Date/Time of Note DATE: 08/07/16 TIME: 00:07 Assessment/Plan Assessment/Plan Chief Complaint/Hosp Course [id number] a/p esrd htn dm ashd dyslipedemia oa djd plan hd Problems: Consultation Date/Type/Reason Admit Date/Time August 06, 2016 at 16:25 Initial Consult Date Type of Consultation: renal 24 HR Interval Summary Constitutional: febrile Exam/Review of Systems Vital Signs Vitals Vital Signs Date Time Temp Pulse Resp B/P Pulse Ox O2 Delivery O2 Flow Rate FiO2 08/06/16 19:46 98.4 83 16 104/54 98 08/06/16 03:30 Room Air Intake and Output 08/06/16 08/06/16 08/07/16 15:00 23:00 07:00 Intake Total 1220 ml Output Total 2500 ml Balance -1280 ml Exam Neck: supple Respiratory: clear to auscultation Cardiovascular: regular rate and rhythm Gastrointestinal: bowel sounds, soft Extremities: No calf tenderness Results Result Diagram: 08/06/16 0540 08/06/16 0540 Results 24 hrs Laboratory Tests Test 08/06/16 03:10 08/06/16 05:40 Lactic Acid Level 1.2 1.7 White Blood Count 8.7 Red Blood Count 3.30 L Hemoglobin 10.2 L Hematocrit 31.3 L Mean Corpuscular Volume 94.8 Mean Corpuscular Hemoglobin 30.9 Mean Corpuscular Hemoglobin Concent 32.6 Red Cell Distribution Width 14.4 Platelet Count 235 Mean Platelet Volume 9.6 Neutrophils % 51.2 Lymphocytes % 28.1 Monocytes % 13.5 H Eosinophils % 6.5 Basophils % 0.2 Nucleated Red Blood Cells % 0.0 Neutrophils # 4.5 Lymphocytes # 2.5 Monocytes # 1.2 H Eosinophils # 0.6 H Basophils # 0.0 Nucleated Red Blood Cells # 0.0 Sodium Level 140 Potassium Level 4.6 Chloride Level 94 L Carbon Dioxide Level 30 Anion Gap 21 H Blood Urea Nitrogen 53 H Creatinine 7.97 H Glucose Level 92 Calcium Level 8.3 L Medications Medications Current Medications Aspirin (Aspirin) 81 mg DAILY PO Last administered on 08/06/16 09:21; Admin Dose 81 MG; Start 08/06/16 at 09:00 Atorvastatin Calcium (Lipitor) 40 mg DAILY@21 PO Last administered on 21:03; Admin Dose 40 MG; Start 08/06/16 at 21:00 Cholecalciferol (Vitamin D) 400 units DAILY PO Last administered on 08/06/16 09:25; Admin Dose 400 UNITS; Start 08/06/16 at 09:00 Cinacalcet (Sensipar) 30 mg DAILY PO Last administered on 08/06/16 09:20; Admin Dose 30 MG; Start 08/06/16 at 09:00 Clopidogrel Bisulfate (plaVIX) 75 mg DAILY PO Last administered on 08/06/16 09 :21; Admin Dose 75 MG; Start 08/06/16 at 09:00 Docusate Sodium (Colace) 100 mg DAILY PO Last administered on 08/06/16 09:21; Admin Dose 100 MG; Start 08/06/16 at 09:00 Losartan Potassium (Cozaar) 25 mg DAILY PO ; Start 08/06/16 at 09:00 Megestrol Acetate (Megace) 40 mg BID PO Last administered on 08/06/16 21:03; Admin Dose 40 MG; Start 08/06/16 at 09:00 Multivit/Ca Carb/ B Cmplx/FA/Prenat (Carmina-Boris) 1 tab DAILY PO Last administered on 08/06/16 09:25; Admin Dose 1 TAB; Start 08/06/16 at 09:00 Pantoprazole (Protonix Tab) 40 mg DAILY@06 PO Last administered on 08/06/16 06 :41; Admin Dose 40 MG; Start 08/06/16 at 06:00 Sevelamer Carbonate (Renvela) 0.8 gm TID PO Last administered on 08/06/16 21: 04; Admin Dose 0.8 GM; Start 08/06/16 at 09:00 Carvedilol (Coreg) 12.5 mg BID PO ; Start 08/06/16 at 09:00 Tramadol HCl (Ultram) 50 mg Q8H PRN PO PAIN Last administered on 08/06/16 06: 46; Admin Dose 50 MG; Start 08/06/16 at 04:00 Acetaminophen 650 mg 650 mg Q8H PRN PO PAIN AND OR ELEVATED TEMP Last administered on 08/06/16 16:41; Admin Dose 650 MG; Start 08/06/16 at 04:00 Ceftriaxone Sodium (Rocephin) 50 ml @ 100 mls/hr Q24H IVPB Last administered on 08/06/16t 18:47; Admin Dose 100 MLS/HR; Start 08/06/16 at 16:00 BELKIS INTERIANO MD August 07, 2016 00:08
--- NOTE | 2016-08-07 02:12 | CONS ---
DATE OF ADMISSION: 08/06/2016 DATE OF CONSULTATION: NEPHROLOGY CONSULTATION HISTORY OF PRESENT ILLNESS: The patient is well known to me with history of ESRD, hypertension. Patient has history of multiple hospitalizations to [facility] and to [facility]. Recently discharged with diagnosis of systemic inflammatory response syndrome, leukocytosis, hypertension , ESRD, anemia. Patient has history of upper extremity DJD, carpal tunnel syndrome, status post injection of pain medication to right knee by Dr. Marquise Morton, atherosclerotic heart disease, dyslipidemia, history of pneumonia, CHF, electrolyte imbalance, history of CAD and TX, presented with weakness, fever and the patient is admitted for further management. Patient goes to [facility] Thursday, Thursday, Thursday, _ third shift, was supposed to go today. Patient's blood pressure 104/54. PAST MEDICAL HISTORY: ESRD, hypertension, osteoarthritis, DJD, dyslipidemia, CHF, TX, atherosclerotic heart disease, history of coronary angiogram in the past, history of neuropathy, history of insomnia and some chronic pain. ALLERGIES: VANCOMYCIN. SOCIAL HISTORY: Negative. FAMILY HISTORY: Hypertension, diabetes mellitus. MEDICATION HISTORY: Positive for at home, patient is on: 1. Tylenol. 2. Amino acid. 3. Aspirin. 4. Lipitor. 5. Vitamin D. 6. Sensipar. 7. Plavix. 8. Aranesp. 9. Docusate sodium. 10. Venofer. 11. Losartan. 12. Megace. 13. Multiple vitamin. 14. Protonix. 15. Zemplar. 16. Renvela. 17. Tramadol. 18. Ambien. REVIEW OF SYSTEMS: HEENT: Unremarkable. RESPIRATORY: Unremarkable. ABDOMEN: Unremarkable. EXTREMITIES: Pain edema. PHYSICAL EXAMINATION: GENERAL: The patient is awake, alert. VITAL SIGNS: Stable. Pulse 78, blood pressure 104/54. HEAD: Atraumatic, normocephalic. EYES: Pupils equal, reactive to light. No pale conjunctivae or icterus. NECK: Supple. LUNGS: Clear. CARDIOVASCULAR: S1, S2 normal. Systolic murmur noted. ABDOMEN: Soft, nontender. Bowel sounds present. No palpable mass. EXTREMITIES: There is no cyanosis, clubbing or edema. CENTRAL NERVOUS SYSTEM: The patient is awake, alert, no focal deficit. LABORATORY DATA: Hematocrit 31.3, potassium of 4.7. The patient had a chest x- ray, shows mild cardiac silhouette enlargement without evidence for acute intrathoracic pathology, improved aeration of the lungs, dense calcification of the mitral annulus with aortic atherosclerotic calcification again seen. IMPRESSION: 1. Systemic inflammatory response syndrome. 2. End-stage renal disease. 3. Hypertension. 4. Atherosclerotic heart disease. 5. Dyslipidemia. 6. History of myocardial infarction. 7. History of coronary angiogram and intervention in the past. 8. History of pneumonia. 9. History of congestive heart failure. 10. History of osteoarthritis. 11. History of degenerative joint disease. 12. History of neuropathy. PLAN: To continue renal diet. Continue hemodialysis. Orders were done. Hemodialysis has been ordered. Dictated By: BELKIS INTERIANO MD BS/NTS Conf#: [id number] DID#: [id number] CC: NADINE WESTBROOK MD;*EndCC* MTDD
[2016-08-07 06:13] LABS: ADD SCAN DIFF NO
[2016-08-07 06:18] LABS: BASOPHILS % 0.1 % (0.0-2.0); EOSINOPHILS # 0.5 10^3/ul (0.0-0.5); EOSINOPHILS % 5.5 % (0.0-7.0); HEMATOCRIT 33.5 % (37.0-47.0); HEMOGLOBIN 10.9 g/dl (12.0-16.0); LYMPHOCYTES # 2.5 10^3/ul (0.8-2.9); LYMPHOCYTES % 28.9 % (15.0-51.0); MEAN CORPUSCULAR HEMOGLOBIN 30.7 pg (29.0-33.0); MEAN CORPUSCULAR HGB CONC 32.5 g/dl (32.0-37.0); MEAN CORPUSCULAR VOLUME 94.4 fl (82.0-101.0); MEAN PLATELET VOLUME 9.6 fl (7.4-10.4); MONOCYTE # 1.2 10^3/ul (0.3-0.9); MONOCYTES % 13.7 % (0.0-11.0); NEUTROPHIL # 4.5 10^3/ul (1.6-7.5); PLATELET COUNT 218 10^3/UL (140-415); RED BLOOD COUNT 3.55 10^6/ul (4.20-5.40); RED CELL DISTRIBUTION WIDTH 14.3 % (11.5-14.5); WHITE BLOOD COUNT 8.8 10^3/ul (4.8-10.8)
[2016-08-07] MEDS: PANTOPRAZOLE (EC) 40 MG TAB PO SCH (06:21)
[2016-08-07 06:48] LABS: ALBUMIN 3.6 g/dl (3.3-4.9); ALBUMIN/GLOBULIN RATIO 1.12; BILIRUBIN,INDIRECT 0.2 mg/dl (0-1.1); BILIRUBIN,TOTAL 0.2 mg/dl (0.2-1.3); CALCIUM 8.3 mg/dl (8.4-10.2); CREATININE 5.83 mg/dl (0.44-1.00); POTASSIUM 4.6 mmol/L (3.5-5.1); TOTAL PROTEIN 6.8 g/dl (6.1-8.1)
[2016-08-07 08:06] VITALS: BP 119/56; RESP 18
[2016-08-07] MEDS: SEVELAMER CARBONATE 0.8 GM PKT PO SCH ×3 (09:36→20:30)
[2016-08-07] MEDS: CINACALCET 30 MG TAB PO SCH (09:36)
[2016-08-07] MEDS: MULTIVIT/CA CARB/B CMPLX/FA TAB PO SCH (09:36)
[2016-08-07] MEDS: CLOPIDOGREL 75 MG TAB PO SCH (09:36)
[2016-08-07] MEDS: LOSARTAN 25 MG TAB PO SCH (09:36)
[2016-08-07] MEDS: ASPIRIN 81 MG TAB PO SCH (09:36)
[2016-08-07] MEDS: MEGESTROL 40 MG TAB PO SCH ×2 (09:36→20:30)
[2016-08-07] MEDS: DOCUSATE SODIUM 100 MG CAP PO SCH (09:36)
[2016-08-07] MEDS: CHOLECALCIFEROL 400 UNITS TAB PO SCH (09:36)
[2016-08-07] MEDS: ACETAMINOPHEN 325 MG TAB PO PRN ×2 (12:37→20:31)
[2016-08-07] MEDS ORDERED: LORAZEPAM 1 MG TAB PO PRN (13:30)
--- NOTE | 2016-08-07 15:05 | CONS ---
Date/Time of Note Date/Time of Note DATE: 08/07/16 TIME: 15:04 Assessment/Plan Assessment/Plan Chief Complaint/Hosp Course IMPRESSION: 1. Systemic inflammatory response syndrome. 2. End-stage renal disease. 3. Hypertension. 4. Atherosclerotic heart disease. 5. Dyslipidemia. 6. History of myocardial infarction. 7. History of coronary angiogram and intervention in the past. 8. History of pneumonia. 9. History of congestive heart failure. 10. History of osteoarthritis. 11. History of degenerative joint disease. 12. History of neuropathy. 13 anxiety plan hd am Problems: Consultation Date/Type/Reason Admit Date/Time August 06, 2016 at 16:25 Type of Consultation: renal 24 HR Interval Summary Constitutional: no complaints, other (anxiety+) Exam/Review of Systems Vital Signs Vitals Vital Signs Date Time Temp Pulse Resp B/P Pulse Ox O2 Delivery O2 Flow Rate FiO2 08/07/16 08:06 97.4 76 18 119/56 99 08/06/16 03:30 Room Air Intake and Output 08/06/16 08/06/16 08/07/16 15:00 23:00 07:00 Intake Total 1220 ml 600 ml Output Total 2500 ml Balance -1280 ml 600 ml Exam Neck: supple Respiratory: clear to auscultation Cardiovascular: regular rate and rhythm Gastrointestinal: soft Musculoskeletal: nl extremities to inspection Extremities: normal pulses Results Result Diagram: 08/07/16 0555 08/07/16 0555 Results 24 hrs Laboratory Tests Test 08/07/16 05:55 White Blood Count 8.8 Red Blood Count 3.55 L Hemoglobin 10.9 L Hematocrit 33.5 L Mean Corpuscular Volume 94.4 Mean Corpuscular Hemoglobin 30.7 Mean Corpuscular Hemoglobin Concent 32.5 Red Cell Distribution Width 14.3 Platelet Count 218 Mean Platelet Volume 9.6 Neutrophils % 51.0 Lymphocytes % 28.9 Monocytes % 13.7 H Eosinophils % 5.5 Basophils % 0.1 Nucleated Red Blood Cells % 0.0 Neutrophils # 4.5 Lymphocytes # 2.5 Monocytes # 1.2 H Eosinophils # 0.5 Basophils # 0.0 Nucleated Red Blood Cells # 0.0 Sodium Level 137 Potassium Level 4.6 Chloride Level 97 Carbon Dioxide Level 30 Anion Gap 15 Blood Urea Nitrogen 34 #H Creatinine 5.83 #H Glucose Level 95 Calcium Level 8.3 L Total Bilirubin 0.2 Direct Bilirubin 0.00 Indirect Bilirubin 0.2 Aspartate Amino Transf (AST/SGOT) 20 Alanine Aminotransferase (ALT/SGPT) 23 Alkaline Phosphatase 85 Total Protein 6.8 Albumin 3.6 Globulin 3.20 Albumin/Globulin Ratio 1.12 Medications Medications Current Medications Aspirin (Aspirin) 81 mg DAILY PO Last administered on 08/07/16 09:36; Admin Dose 81 MG; Start 08/06/16 at 09:00 Atorvastatin Calcium (Lipitor) 40 mg DAILY@21 PO Last administered on 21:03; Admin Dose 40 MG; Start 08/06/16 at 21:00 Cholecalciferol (Vitamin D) 400 units DAILY PO Last administered on 08/07/16 09:36; Admin Dose 400 UNITS; Start 08/06/16 at 09:00 Cinacalcet (Sensipar) 30 mg DAILY PO Last administered on 08/07/16 09:36; Admin Dose 30 MG; Start 08/06/16 at 09:00 Clopidogrel Bisulfate (plaVIX) 75 mg DAILY PO Last administered on 08/07/16 09 :36; Admin Dose 75 MG; Start 08/06/16 at 09:00 Docusate Sodium (Colace) 100 mg DAILY PO Last administered on 08/07/16 09:36; Admin Dose 100 MG; Start 08/06/16 at 09:00 Losartan Potassium (Cozaar) 25 mg DAILY PO Last administered on 08/07/16 09:36 ; Admin Dose 25 MG; Start 08/06/16 at 09:00 Megestrol Acetate (Megace) 40 mg BID PO Last administered on 08/07/16 09:36; Admin Dose 40 MG; Start 08/06/16 at 09:00 Multivit/Ca Carb/ B Cmplx/FA/Prenat (Carmina-Boris) 1 tab DAILY PO Last administered on 08/07/16 09:36; Admin Dose 1 TAB; Start 08/06/16 at 09:00 Pantoprazole (Protonix Tab) 40 mg DAILY@06 PO Last administered on 08/07/16 06 :21; Admin Dose 40 MG; Start 08/06/16 at 06:00 Sevelamer Carbonate (Renvela) 0.8 gm TID PO Last administered on 08/07/16 12: 32; Admin Dose 0.8 GM; Start 08/06/16 at 09:00 Carvedilol (Coreg) 12.5 mg BID PO Last administered on 08/07/16 09:37; Admin Dose 12.5 MG; Start 08/06/16 at 09:00 Tramadol HCl (Ultram) 50 mg Q8H PRN PO PAIN Last administered on 08/06/16 06: 46; Admin Dose 50 MG; Start 08/06/16 at 04:00 Acetaminophen 650 mg 650 mg Q8H PRN PO PAIN AND OR ELEVATED TEMP Last administered on 08/07/16 12:37; Admin Dose 650 MG; Start 08/06/16 at 04:00 Ceftriaxone Sodium (Rocephin) 50 ml @ 100 mls/hr Q24H IVPB Last administered on 08/06/16 18:47; Admin Dose 100 MLS/HR; Start 08/06/16 at 16:00 Lorazepam (Ativan) 1 mg Q6H PRN PO ANXIETY; Start 08/07/16 at 13:30 BELKIS INTERIANO MD August 07, 2016 15:05
[2016-08-07] MEDS: CEFTRIAXONE 1 GM/50 ML (PMX) 50 ML IVPB SCH (15:50)
--- NOTE | 2016-08-07 18:28 | PN ---
Date/Time of Note Date/Time of Note DATE: 08/07/16 TIME: 18:27 Assessment/Plan VTE Prophylaxis VTE Prophylaxis Intervention: other Lines/Catheters IV Catheter Type (from Nrs): Saline Lock Assessment/Plan Assessment/Plan 1. Febrile illness. We will obtain blood cultures with next hemodialysis x2. Obtain urine culture. 2. Hemodialysis dependent, end-stage renal disease. - per washer and crusher tender 3. Diastolic congestive heart failure. Continue Coreg. 4. Hypertension. Continue Cozaar. 5. Osteoarthritis. 6. Dyslipidemia. Continue statin. 7. Nonobstructive moderate coronary artery disease. Continue patient on Plavix. 8. We will continue Protonix for peptic ulcer disease prophylaxis. Further recommendations based on clinical course. Plan of care discussed with Dr. Davison. Subjective 24 Hr Interval Summary Free Text/Dictation sitting up in bed, afebrile, dw staff- no acute events reported. Eyes: no complaints ENT: no complaints Respiratory: no complaints Cardiovascular: no complaints Gastrointestinal: no complaints Genitourinary: no complaints Musculoskeletal: no complaints Skin: no complaints Neurologic: no complaints Endocrine: no complaints Exam/Review of Systems Vital Signs Vitals Vital Signs Date Time Temp Pulse Resp B/P Pulse Ox O2 Delivery O2 Flow Rate FiO2 08/07/16 08:06 97.4 76 18 119/56 99 08/06/16 03:30 Room Air Intake and Output 08/06/16 08/06/16 08/07/16 14:59 22:59 06:59 Intake Total 1220 ml 600 ml Output Total 2500 ml Balance -1280 ml 600 ml Exam Constitutional: alert, oriented, well developed Psych: nl mood/affect Eyes: EOMI ENMT: nl external ears & nose Neck: non-tender Respiratory: clear to auscultation Cardiovascular: nl pulses Gastrointestinal: non-tender, soft Musculoskeletal: nl extremities to inspection Extremities: normal pulses Neurological: nl mental status, nl speech Skin: nl turgor Lymph: nontender Results Result Diagram: 08/07/16 0555 08/07/16 0555 Results 24 hrs Laboratory Tests Test 08/07/16 05:55 White Blood Count 8.8 Red Blood Count 3.55 L Hemoglobin 10.9 L Hematocrit 33.5 L Mean Corpuscular Volume 94.4 Mean Corpuscular Hemoglobin 30.7 Mean Corpuscular Hemoglobin Concent 32.5 Red Cell Distribution Width 14.3 Platelet Count 218 Mean Platelet Volume 9.6 Neutrophils % 51.0 Lymphocytes % 28.9 Monocytes % 13.7 H Eosinophils % 5.5 Basophils % 0.1 Nucleated Red Blood Cells % 0.0 Neutrophils # 4.5 Lymphocytes # 2.5 Monocytes # 1.2 H Eosinophils # 0.5 Basophils # 0.0 Nucleated Red Blood Cells # 0.0 Sodium Level 137 Potassium Level 4.6 Chloride Level 97 Carbon Dioxide Level 30 Anion Gap 15 Blood Urea Nitrogen 34 #H Creatinine 5.83 #H Glucose Level 95 Calcium Level 8.3 L Total Bilirubin 0.2 Direct Bilirubin 0.00 Indirect Bilirubin 0.2 Aspartate Amino Transf (AST/SGOT) 20 Alanine Aminotransferase (ALT/SGPT) 23 Alkaline Phosphatase 85 Total Protein 6.8 Albumin 3.6 Globulin 3.20 Albumin/Globulin Ratio 1.12 Medications Medications Current Medications Aspirin (Aspirin) 81 mg DAILY PO Last administered on 08/07/16 09:36; Admin Dose 81 MG; Start 08/06/16 at 09:00 Atorvastatin Calcium (Lipitor) 40 mg DAILY@21 PO Last administered on 21:03; Admin Dose 40 MG; Start 08/06/16 at 21:00 Cholecalciferol (Vitamin D) 400 units DAILY PO Last administered on 08/07/16 09:36; Admin Dose 400 UNITS; Start 08/06/16 at 09:00 Cinacalcet (Sensipar) 30 mg DAILY PO Last administered on 08/07/16 09:36; Admin Dose 30 MG; Start 08/06/16 at 09:00 Clopidogrel Bisulfate (plaVIX) 75 mg DAILY PO Last administered on 08/07/16 09 :36; Admin Dose 75 MG; Start 08/06/16 at 09:00 Docusate Sodium (Colace) 100 mg DAILY PO Last administered on 08/07/16 09:36; Admin Dose 100 MG; Start 08/06/16 at 09:00 Losartan Potassium (Cozaar) 25 mg DAILY PO Last administered on 08/07/16 09:36 ; Admin Dose 25 MG; Start 08/06/16 at 09:00 Megestrol Acetate (Megace) 40 mg BID PO Last administered on 08/07/16 09:36; Admin Dose 40 MG; Start 08/06/16 at 09:00 Multivit/Ca Carb/ B Cmplx/FA/Prenat (Carmina-Boris) 1 tab DAILY PO Last administered on 08/07/16 09:36; Admin Dose 1 TAB; Start 08/06/16 at 09:00 Pantoprazole (Protonix Tab) 40 mg DAILY@06 PO Last administered on 08/07/16 06 :21; Admin Dose 40 MG; Start 08/06/16 at 06:00 Sevelamer Carbonate (Renvela) 0.8 gm TID PO Last administered on 08/07/16 12: 32; Admin Dose 0.8 GM; Start 08/06/16 at 09:00 Carvedilol (Coreg) 12.5 mg BID PO Last administered on 08/07/16 09:37; Admin Dose 12.5 MG; Start 08/06/16 at 09:00 Tramadol HCl (Ultram) 50 mg Q8H PRN PO PAIN Last administered on 08/06/16 06: 46; Admin Dose 50 MG; Start 08/06/16 at 04:00 Acetaminophen 650 mg 650 mg Q8H PRN PO PAIN AND OR ELEVATED TEMP Last administered on 08/07/16 12:37; Admin Dose 650 MG; Start 08/06/16 at 04:00 Ceftriaxone Sodium (Rocephin) 50 ml @ 100 mls/hr Q24H IVPB Last administered on 08/07/16 15:50; Admin Dose 100 MLS/HR; Start 08/06/16 at 16:00 Lorazepam (Ativan) 1 mg Q6H PRN PO ANXIETY; Start 08/07/16 at 13:30 ALDAIR WRIGHT August 07, 2016 18:28
[2016-08-07 20:00] VITALS: BP 111/58; RESP 20
[2016-08-07] MEDS: ATORVASTATIN 40 MG TAB PO SCH (20:30)
[2016-08-07] MEDS: ZOLPIDEM 5 MG TAB PO PRN (22:25)
[2016-08-08] VITALS (12 sets, daily range): BP systolic 97–139; BP diastolic 50–64; PULSE 82–89; RESP 18–20
[2016-08-08] MEDS: PANTOPRAZOLE (EC) 40 MG TAB PO SCH (06:04)
[2016-08-08 06:30] LABS: ADD SCAN DIFF NO
[2016-08-08 06:36] LABS: BASOPHILS % 0.1 % (0.0-2.0); EOSINOPHILS # 0.5 10^3/ul (0.0-0.5); EOSINOPHILS % 5.6 % (0.0-7.0); HEMATOCRIT 32.4 % (37.0-47.0); HEMOGLOBIN 10.5 g/dl (12.0-16.0); LYMPHOCYTES % 31.2 % (15.0-51.0); MEAN CORPUSCULAR HEMOGLOBIN 30.3 pg (29.0-33.0); MEAN CORPUSCULAR HGB CONC 32.4 g/dl (32.0-37.0); MEAN CORPUSCULAR VOLUME 93.4 fl (82.0-101.0); MEAN PLATELET VOLUME 9.9 fl (7.4-10.4); MONOCYTE # 1.4 10^3/ul (0.3-0.9); MONOCYTES % 15.2 % (0.0-11.0); NEUTROPHIL # 4.5 10^3/ul (1.6-7.5); NEUTROPHILS % 47.5 % (39.0-77.0); PLATELET COUNT 215 10^3/UL (140-415); RED BLOOD COUNT 3.47 10^6/ul (4.20-5.40); RED CELL DISTRIBUTION WIDTH 14.1 % (11.5-14.5); WHITE BLOOD COUNT 9.5 10^3/ul (4.8-10.8)
[2016-08-08 08:14] LABS: CALCIUM 7.9 mg/dl (8.4-10.2); CREATININE 7.98 mg/dl (0.44-1.00); POTASSIUM 4.9 mmol/L (3.5-5.1)
[2016-08-08] MEDS: LOSARTAN 25 MG TAB PO SCH (08:32)
[2016-08-08] MEDS: DOCUSATE SODIUM 100 MG CAP PO SCH ×2 (09:00→13:08)
[2016-08-08] MEDS: CHOLECALCIFEROL 400 UNITS TAB PO SCH ×2 (09:00→13:08)
[2016-08-08] MEDS: CLOPIDOGREL 75 MG TAB PO SCH ×2 (09:00→13:07)
[2016-08-08] MEDS: ASPIRIN 81 MG TAB PO SCH ×2 (09:00→13:07)
[2016-08-08] MEDS: SEVELAMER CARBONATE 0.8 GM PKT PO SCH ×4 (09:00→20:10)
[2016-08-08] MEDS: CINACALCET 30 MG TAB PO SCH ×2 (09:00→13:08)
[2016-08-08] MEDS: MULTIVIT/CA CARB/B CMPLX/FA TAB PO SCH ×2 (09:00→13:07)
[2016-08-08] MEDS: MEGESTROL 40 MG TAB PO SCH ×3 (09:00→20:10)
--- NOTE | 2016-08-08 14:57 | PN ---
Date/Time of Note Date/Time of Note DATE: 08/08/16 TIME: 14:49 Assessment/Plan VTE Prophylaxis VTE Prophylaxis Intervention: SCD's Lines/Catheters IV [facility]ter Type (from [facility]): Saline Lock Assessment/Plan Chief Complaint/Hosp Course ASSESSMENT AND PLAN: 1. Febrile illness. Follow up on final cultures. 2. Hemodialysis dependent, end-stage renal disease. Dr. Keen is following in from nephrology standpoint. Continue dialysis 3. Diastolic congestive heart failure. Continue Coreg. 4. Hypertension. Continue Cozaar. 5. Osteoarthritis. 6. Dyslipidemia. Continue statin. 7. Nonobstructive moderate coronary artery disease. Continue patient on Plavix. Continue Protonix for peptic ulcer disease prophylaxis. Further recommendations based on clinical course. Plan of care discussed with Dr. Davison. Problems: Subjective 24 Hr Interval Summary Free Text/Dictation Patient denies fever denies chills. Exam/Review of Systems Vital Signs Vitals Vital Signs Date Time Temp Pulse Resp B/P Pulse Ox O2 Delivery O2 Flow Rate FiO2 08/08/16 11:50 88 08/08/16 08:50 18 08/08/16 07:44 98.6 139/63 99 08/06/16 03:30 Room Air Intake and Output 08/07/16 08/07/16 08/08/16 15:00 23:00 07:00 Intake Total 650 ml 240 ml Balance 650 ml 240 ml Exam GENERAL: Well-developed, well-nourished female. Currently, the patient is awake, alert. HEENT: Head is atraumatic, normocephalic. Pupils are equal, round, reactive to light and accommodation. Oral mucosa is pink and moist. NECK: Supple, no cervical lymphadenopathy, no thyromegaly. CHEST: Lungs clear bilaterally. There is no rhonchi, wheezes, rales noted. CARDIOVASCULAR: Normal S1, S2. No murmurs, gallops, clicks, rubs noted. ABDOMEN: Protuberant, soft, nondistended, nontender. Bowel sounds present. There is no guarding, no rebound tenderness. EXTREMITIES: There is no edema, clubbing, cyanosis. Pulses equal bilaterally 2 +. The patient has a left upper extremity AV fistula with a palpable thrill and audible bruit. SKIN: There is no rash, petechiae noted. NEUROLOGICAL: The patient is awake, alert and oriented x4. No focal deficits noted. MUSCULOSKELETAL: Motor strength is 5/5 in all extremities. Results Result Diagram: 08/08/16 0535 08/08/16 0535 Results 24 hrs Laboratory Tests Test 08/08/16 05:35 White Blood Count 9.5 Red Blood Count 3.47 L Hemoglobin 10.5 L Hematocrit 32.4 L Mean Corpuscular Volume 93.4 Mean Corpuscular Hemoglobin 30.3 Mean Corpuscular Hemoglobin Concent 32.4 Red Cell Distribution Width 14.1 Platelet Count 215 Mean Platelet Volume 9.9 Neutrophils % 47.5 Lymphocytes % 31.2 Monocytes % 15.2 H Eosinophils % 5.6 Basophils % 0.1 Nucleated Red Blood Cells % 0.0 Neutrophils # 4.5 Lymphocytes # 3.0 H Monocytes # 1.4 H Eosinophils # 0.5 Basophils # 0.0 Nucleated Red Blood Cells # 0.0 Sodium Level 134 L Potassium Level 4.9 Chloride Level 94 L Carbon Dioxide Level 26 Anion Gap 19 H Blood Urea Nitrogen 46 #H Creatinine 7.98 #H Glucose Level 87 Calcium Level 7.9 L Medications Medications Current Medications Aspirin (Aspirin) 81 mg DAILY PO Last administered on 08/08/16 13:07; Admin Dose 81 MG; Start 08/06/16 at 09:00 Atorvastatin Calcium (Lipitor) 40 mg DAILY@21 PO Last administered on 20:30; Admin Dose 40 MG; Start 08/06/16 at 21:00 Cholecalciferol (Vitamin D) 400 units DAILY PO Last administered on 08/08/16 13:08; Admin Dose 400 UNITS; Start 08/06/16 at 09:00 Cinacalcet (Sensipar) 30 mg DAILY PO Last administered on 08/08/16 13:08; Admin Dose 30 MG; Start 08/06/16 at 09:00 Clopidogrel Bisulfate (plaVIX) 75 mg DAILY PO Last administered on 08/08/16 13 :07; Admin Dose 75 MG; Start 08/06/16 at 09:00 Docusate Sodium (Colace) 100 mg DAILY PO Last administered on 08/08/16 13:08; Admin Dose 100 MG; Start 08/06/16 at 09:00 Losartan Potassium (Cozaar) 25 mg DAILY PO Last administered on 08/07/16 09:36 ; Admin Dose 25 MG; Start 08/06/16 at 09:00 Megestrol Acetate (Megace) 40 mg BID PO Last administered on 08/08/16 13:08; Admin Dose 40 MG; Start 08/06/16 at 09:00 Multivit/Ca Carb/ B Cmplx/FA/Prenat (Carmina-Boris) 1 tab DAILY PO Last administered on 08/08/16 13:07; Admin Dose 1 TAB; Start 08/06/16 at 09:00 Pantoprazole (Protonix Tab) 40 mg DAILY@06 PO Last administered on 08/08/16 06 :04; Admin Dose 40 MG; Start 08/06/16 at 06:00 Sevelamer Carbonate (Renvela) 0.8 gm TID PO Last administered on 08/08/16 13: 08; Admin Dose 0.8 GM; Start 08/06/16 at 09:00 Carvedilol (Coreg) 12.5 mg BID PO Last administered on 08/07/16 09:37; Admin Dose 12.5 MG; Start 08/06/16 at 09:00 Tramadol HCl (Ultram) 50 mg Q8H PRN PO PAIN Last administered on 08/06/16 06: 46; Admin Dose 50 MG; Start 08/06/16 at 04:00 Acetaminophen 650 mg 650 mg Q8H PRN PO PAIN AND OR ELEVATED TEMP Last administered on 08/07/16 20:31; Admin Dose 650 MG; Start 08/06/16 at 04:00 Ceftriaxone Sodium (Rocephin) 50 ml @ 100 mls/hr Q24H IVPB Last administered on 08/07/16 15:50; Admin Dose 100 MLS/HR; Start 08/06/16 at 16:00 Lorazepam (Ativan) 1 mg Q6H PRN PO ANXIETY; Start 08/07/16 at 13:30 CHARLES DNAIELSON August 08, 2016 14:57
[2016-08-08] MEDS: CEFTRIAXONE 1 GM/50 ML (PMX) 50 ML IVPB SCH (16:25)
--- NOTE | 2016-08-08 16:47 | CONS ---
DATE OF ADMISSION: 08/06/2016 DATE OF CONSULTATION: 08/08/2016 INFECTIOUS DISEASE CONSULTATION REASON FOR CONSULTATION: Antibiotic management. HISTORY OF PRESENT ILLNESS: The patient is a 76-year-old female with numerous problems who comes in with fever and chills, general weakness, and bilateral lower extremity pain and numbness. Her past problems include: 1. End-stage renal disease, hemodialysis dependent. 2. Right knee osteoarthritis. 3. Carpal tunnel syndrome. 4. Hypertension. 5. Dyslipidemia. 6. Osteoarthritis. 7. Coronary artery disease. 8. Nonobstructive left heart catheterization 01/[address] Zimmer. 9. Status post cholecystectomy. 10. Status post hysterectomy more than 30 years ago. 11. ALLERGY TO VANCOMYCIN. The patient denies any nausea, vomiting, cough, or chest pain. She complains of headache but denies leg pain. Denies shoulder pain. Chest x-ray showed mild cardiac silhouette enlargement without ac [place] intrathoracic pathology. She has dense calcification of the mitral annulus with aortic atherosc lerosis. Lactic acid was 1.6. She presented to the emergency room on 08/05/2016 and was sent home but felt worse on the and came back in with subjective fever and chills. On admission, her whi te count was 9.6, H and H of 12 and 36.6, platelet count 257. BUN and creatinine 47/7.1, glucose 10 9. AST 24, ALT 20, alkaline phosphatase 107. On admission, temperature was 99.4. Blood cultures h ave been negative. Influenza type A and B are negative. 12. Methicillin-resistant Staphylococcus was not found. Her white count today is 9.5. BUN and cre atinine are 46/7.98. The patient was started on ceftriaxone. Today she is afebrile. White count i s 9.5. No rash. PAST MEDICAL HISTORY: Operations as outlined. FAMILY HISTORY: Noncontributory. SOCIAL HISTORY: She does not smoke, drink, or abuse drugs. ALLERGIES: VANCOMYCIN. MEDICATIONS: Per chart. REVIEW OF SYSTEMS: As per HPI. PHYSICAL EXAMINATION: GENERAL: The patient is a well-developed, well-nourished female who is alert, responsive, in no acu te distress. VITAL SIGNS: Stable. She is afebrile. SKIN: Without generalized rash. HEENT: Within normal limits. NECK: Supple. LYMPH NODES: None palpable. CHEST: Decreased breath sounds at the bases. HEART: Without murmur or gallop. ABDOMEN: Soft, nontender, without organosplenomegaly or masses. EXTREMITIES: Without cyanosis, clubbing, or edema. RECTAL/GENITAL: Exam is deferred. NEUROLOGICAL: No focal neurological abnormalities. She has a left upper extremity AV fistula with palpable thrill and audible bruit. IMPRESSION AND PLAN: At this point in time, although the patient has subjective feelings of being f ebrile, she is afebrile, and also her blood cultures are negative. We do not have a urine culture w hich was ordered. We will check on whether straight catheterization can be done. Otherwise, I thin k that it is reasonable to stop her antibiotic therapy. I will discuss this with the nurse as far a s the urine culture and then decide on stopping her antibiotic therapy. I want to thank Dr. Deon degroot, nurse Joie, and Dr. Keen for this consultation. Dictated By: REI DILLARD MD, JD/HEATHER Conf#: [id number] DID#: [id number]
--- NOTE | 2016-08-08 19:25 | CONS ---
Date/Time of Note Date/Time of Note DATE: 08/08/16 TIME: 19:24 Assessment/Plan Assessment/Plan Chief Complaint/Hosp Course 1. Systemic inflammatory response syndrome. 2. End-stage renal disease. 3. Hypertension. 4. Atherosclerotic heart disease. 5. Dyslipidemia. 6. History of myocardial infarction. 7. History of coronary angiogram and intervention in the past. 8. History of pneumonia. 9. History of congestive heart failure. 10. History of osteoarthritis. 11. History of degenerative joint disease. 12. History of neuropathy. 13 anxiet Problems: Additional Assessment/Plan 1. Kidney function optimization 2,. HD treatment Consultation Date/Type/Reason Admit Date/Time August 06, 2016 at 16:25 Initial Consult Date 08/07/2016 Type of Consultation: renal Reason for Consultation Dr Keen 24 HR Interval Summary Constitutional: improved Exam/Review of Systems Vital Signs Vitals Vital Signs Date Time Temp Pulse Resp B/P Pulse Ox O2 Delivery O2 Flow Rate FiO2 08/08/16 11:50 88 08/08/16 08:50 18 08/08/16 07:44 98.6 139/63 99 08/06/16 03:30 Room Air Intake and Output 08/07/16 08/07/16 08/08/16 15:00 23:00 07:00 Intake Total 650 ml 240 ml Balance 650 ml 240 ml Exam Constitutional: alert, oriented Psych: no complaints Head: normocephalic Eyes: nl conjunctiva ENMT: nl external ears & nose Neck: supple Respiratory: clear to auscultation Cardiovascular: regular rate and rhythm Gastrointestinal: soft Genitourinary - Female: nl adnexae Musculoskeletal: nl extremities to inspection Results Result Diagram: 08/08/16 0535 08/08/16 0535 Results 24 hrs Laboratory Tests Test 08/08/16 05:35 White Blood Count 9.5 Red Blood Count 3.47 L Hemoglobin 10.5 L Hematocrit 32.4 L Mean Corpuscular Volume 93.4 Mean Corpuscular Hemoglobin 30.3 Mean Corpuscular Hemoglobin Concent 32.4 Red Cell Distribution Width 14.1 Platelet Count 215 Mean Platelet Volume 9.9 Neutrophils % 47.5 Lymphocytes % 31.2 Monocytes % 15.2 H Eosinophils % 5.6 Basophils % 0.1 Nucleated Red Blood Cells % 0.0 Neutrophils # 4.5 Lymphocytes # 3.0 H Monocytes # 1.4 H Eosinophils # 0.5 Basophils # 0.0 Nucleated Red Blood Cells # 0.0 Sodium Level 134 L Potassium Level 4.9 Chloride Level 94 L Carbon Dioxide Level 26 Anion Gap 19 H Blood Urea Nitrogen 46 #H Creatinine 7.98 #H Glucose Level 87 Calcium Level 7.9 L Medications Medications Current Medications Aspirin (Aspirin) 81 mg DAILY PO Last administered on 08/08/16 13:07; Admin Dose 81 MG; Start 08/06/16 at 09:00 Atorvastatin Calcium (Lipitor) 40 mg DAILY@21 PO Last administered on 20:30; Admin Dose 40 MG; Start 08/06/16 at 21:00 Cholecalciferol (Vitamin D) 400 units DAILY PO Last administered on 08/08/16 13:08; Admin Dose 400 UNITS; Start 08/06/16 at 09:00 Cinacalcet (Sensipar) 30 mg DAILY PO Last administered on 08/08/16 13:08; Admin Dose 30 MG; Start 08/06/16 at 09:00 Clopidogrel Bisulfate (plaVIX) 75 mg DAILY PO Last administered on 08/08/16 13 :07; Admin Dose 75 MG; Start 08/06/16 at 09:00 Docusate Sodium (Colace) 100 mg DAILY PO Last administered on 08/08/16 13:08; Admin Dose 100 MG; Start 08/06/16 at 09:00 Losartan Potassium (Cozaar) 25 mg DAILY PO Last administered on 08/07/16 09:36 ; Admin Dose 25 MG; Start 08/06/16 at 09:00 Megestrol Acetate (Megace) 40 mg BID PO Last administered on 08/08/16 13:08; Admin Dose 40 MG; Start 08/06/16 at 09:00 Multivit/Ca Carb/ B Cmplx/FA/Prenat (Carmina-Boris) 1 tab DAILY PO Last administered on 08/08/16 13:07; Admin Dose 1 TAB; Start 08/06/16 at 09:00 Pantoprazole (Protonix Tab) 40 mg DAILY@06 PO Last administered on 08/08/16 06 :04; Admin Dose 40 MG; Start 08/06/16 at 06:00 Sevelamer Carbonate (Renvela) 0.8 gm TID PO Last administered on 08/08/16 13: 08; Admin Dose 0.8 GM; Start 08/06/16 at 09:00 Carvedilol (Coreg) 12.5 mg BID PO Last administered on 08/07/16 09:37; Admin Dose 12.5 MG; Start 08/06/16 at 09:00 Tramadol HCl (Ultram) 50 mg Q8H PRN PO PAIN Last administered on 08/06/16 06: 46; Admin Dose 50 MG; Start 08/06/16 at 04:00 Acetaminophen 650 mg 650 mg Q8H PRN PO PAIN AND OR ELEVATED TEMP Last administered on 08/07/16 20:31; Admin Dose 650 MG; Start 08/06/16 at 04:00 Ceftriaxone Sodium (Rocephin) 50 ml @ 100 mls/hr Q24H IVPB Last administered on 08/08/16 16:25; Admin Dose 100 MLS/HR; Start 08/06/16 at 16:00 Lorazepam (Ativan) 1 mg Q6H PRN PO ANXIETY; Start 08/07/16 at 13:30 MAX HERNANDEZ August 08, 2016 19:25
[2016-08-08] MEDS: ATORVASTATIN 40 MG TAB PO SCH (20:09)
[2016-08-08] MEDS: traMADol 50 MG TAB PO PRN (20:10)
[2016-08-08] MEDS: ZOLPIDEM 5 MG TAB PO PRN (23:26)
[2016-08-08] MEDS: ACETAMINOPHEN 325 MG TAB PO PRN (23:29)
[2016-08-09] MEDS: PANTOPRAZOLE (EC) 40 MG TAB PO SCH (05:15)
[2016-08-09 07:05] LABS: ADD SCAN DIFF NO
[2016-08-09 07:10] LABS: BASOPHILS % 0.1 % (0.0-2.0); EOSINOPHILS # 0.4 10^3/ul (0.0-0.5); EOSINOPHILS % 4.4 % (0.0-7.0); HEMATOCRIT 31.6 % (37.0-47.0); HEMOGLOBIN 10.2 g/dl (12.0-16.0); MEAN CORPUSCULAR HEMOGLOBIN 31.1 pg (29.0-33.0); MEAN CORPUSCULAR HGB CONC 32.3 g/dl (32.0-37.0); MEAN CORPUSCULAR VOLUME 96.3 fl (82.0-101.0); MEAN PLATELET VOLUME 9.9 fl (7.4-10.4); MONOCYTE # 1.2 10^3/ul (0.3-0.9); MONOCYTES % 13.5 % (0.0-11.0); NEUTROPHIL # 4.4 10^3/ul (1.6-7.5); NEUTROPHILS % 48.7 % (39.0-77.0); PLATELET COUNT 201 10^3/UL (140-415); RED BLOOD COUNT 3.28 10^6/ul (4.20-5.40); RED CELL DISTRIBUTION WIDTH 13.7 % (11.5-14.5); WHITE BLOOD COUNT 8.9 10^3/ul (4.8-10.8)
[2016-08-09 07:38] LABS: POTASSIUM 5.3 mmol/L (3.5-5.1)
[2016-08-09 07:40] LABS: CREATININE 6.53 mg/dl (0.44-1.00)
[2016-08-09 07:41] LABS: CALCIUM 8.3 mg/dl (8.4-10.2)
[2016-08-09 08:24] VITALS: BP 117/61; RESP 18
[2016-08-09] MEDS: SEVELAMER CARBONATE 0.8 GM PKT PO SCH ×2 (09:07→13:07)
[2016-08-09] MEDS: MEGESTROL 40 MG TAB PO SCH (09:07)
[2016-08-09] MEDS: CINACALCET 30 MG TAB PO SCH (09:08)
[2016-08-09] MEDS: MULTIVIT/CA CARB/B CMPLX/FA TAB PO SCH (09:08)
[2016-08-09] MEDS: ASPIRIN 81 MG TAB PO SCH (09:08)
[2016-08-09] MEDS: CLOPIDOGREL 75 MG TAB PO SCH (09:08)
[2016-08-09] MEDS: DOCUSATE SODIUM 100 MG CAP PO SCH (09:08)
[2016-08-09] MEDS: CHOLECALCIFEROL 400 UNITS TAB PO SCH (09:08)
[2016-08-09] MEDS: LOSARTAN 25 MG TAB PO SCH (09:09)
--- NOTE | 2016-08-09 10:34 | PN ---
Date/Time of Note Date/Time of Note DATE: 08/09/16 TIME: 10:34 Assessment/Plan VTE Prophylaxis VTE Prophylaxis Intervention: other Lines/Catheters IV [facility] Type [facility]from [facility] Saline Lock Assessment/Plan Chief Complaint/Hosp Course 1. Febrile illness. Follow up on final cultures. 2. Hemodialysis dependent, end-stage renal disease. Dr. Keen is following in from nephrology standpoint. Continue dialysis 3. Diastolic congestive heart failure. Continue Coreg. 4. Hypertension. Continue Cozaar. 5. Osteoarthritis. 6. Dyslipidemia. Continue statin. 7. Nonobstructive moderate coronary artery disease. Continue patient on Plavix. Problems: Subjective 24 Hr Interval Summary Free Text/Dictation Patient has no complaints Exam/Review of Systems Vital Signs Vitals Vital Signs Date Time Temp Pulse Resp B/P Pulse Ox O2 Delivery O2 Flow Rate FiO2 08/09/16 08:24 98.2 81 18 117/61 97 08/06/16 03:30 Room Air Intake and Output 08/08/16 08/08/16 08/09/16 15:00 23:00 07:00 Intake Total 200 ml 770 ml 355 ml Output Total 2300 ml Balance -2100 ml 770 ml 355 ml Exam Constitutional: well developed Head: atraumatic, normocephalic Neck: supple Respiratory: clear to auscultation Cardiovascular: regular rate and rhythm Gastrointestinal: non-tender, soft Extremities: normal pulses Results Result Diagram: 08/09/16 0545 08/09/16 0545 Results 24 hrs Laboratory Tests Test 08/09/16 05:45 White Blood Count 8.9 Red Blood Count 3.28 L Hemoglobin 10.2 L Hematocrit 31.6 L Mean Corpuscular Volume 96.3 Mean Corpuscular Hemoglobin 31.1 Mean Corpuscular Hemoglobin Concent 32.3 Red Cell Distribution Width 13.7 Platelet Count 201 Mean Platelet Volume 9.9 Neutrophils % 48.7 Lymphocytes % 33.0 Monocytes % 13.5 H Eosinophils % 4.4 Basophils % 0.1 Nucleated Red Blood Cells % 0.0 Neutrophils # 4.4 Lymphocytes # 3.0 H Monocytes # 1.2 H Eosinophils # 0.4 Basophils # 0.0 Nucleated Red Blood Cells # 0.0 Sodium Level 142 Potassium Level 5.3 H Chloride Level 98 Carbon Dioxide Level 29 Anion Gap 20 H Blood Urea Nitrogen 34 #H Creatinine 6.53 H Glucose Level 83 Calcium Level 8.3 L Medications Medications Current Medications Aspirin (Aspirin) 81 mg DAILY PO Last administered on 08/09/16 09:08; Admin Dose 81 MG; Start 08/06/16 at 09:00 Atorvastatin Calcium (Lipitor) 40 mg DAILY@21 PO Last administered on 20:09; Admin Dose 40 MG; Start 08/06/16 at 21:00 Cholecalciferol (Vitamin D) 400 units DAILY PO Last administered on 08/09/16 09:08; Admin Dose 400 UNITS; Start 08/06/16 at 09:00 Cinacalcet (Sensipar) 30 mg DAILY PO Last administered on 08/09/16 09:08; Admin Dose 30 MG; Start 08/06/16 at 09:00 Clopidogrel Bisulfate (plaVIX) 75 mg DAILY PO Last administered on 08/09/16 09 :08; Admin Dose 75 MG; Start 08/06/16 at 09:00 Docusate Sodium (Colace) 100 mg DAILY PO Last administered on 08/09/16 09:08; Admin Dose 100 MG; Start 08/06/16 at 09:00 Losartan Potassium (Cozaar) 25 mg DAILY PO Last administered on 08/09/16 09:09 ; Admin Dose 25 MG; Start 08/06/16 at 09:00 Megestrol Acetate (Megace) 40 mg BID PO Last administered on 08/09/16 09:07; Admin Dose 40 MG; Start 08/06/16 at 09:00 Multivit/Ca Carb/ B Cmplx/FA/Prenat (Carmina-Boris) 1 tab DAILY PO Last administered on 08/09/16 09:08; Admin Dose 1 TAB; Start 08/06/16 at 09:00 Pantoprazole (Protonix Tab) 40 mg DAILY@06 PO Last administered on 08/09/16 05 :15; Admin Dose 40 MG; Start 08/06/16 at 06:00 Sevelamer Carbonate (Renvela) 0.8 gm TID PO Last administered on 08/09/16 09: 07; Admin Dose 0.8 GM; Start 08/06/16 at 09:00 Carvedilol (Coreg) 12.5 mg BID PO Last administered on 08/09/16 09:09; Admin Dose 12.5 MG; Start 08/06/16 at 09:00 Tramadol HCl (Ultram) 50 mg Q8H PRN PO PAIN Last administered on 08/08/16 20: 10; Admin Dose 50 MG; Start 08/06/16 at 04:00 Acetaminophen 650 mg 650 mg Q8H PRN PO PAIN AND OR ELEVATED TEMP Last administered on 08/08/16 23:29; Admin Dose 650 MG; Start 08/06/16 at 04:00 Ceftriaxone Sodium (Rocephin) 50 ml @ 100 mls/hr Q24H IVPB Last administered on 08/08/16 16:25; Admin Dose 100 MLS/HR; Start 08/06/16 at 16:00 Lorazepam (Ativan) 1 mg Q6H PRN PO ANXIETY; Start 08/07/16 at 13:30 YARI LUGO August 09, 2016 10:34
--- NOTE | 2016-08-09 13:45 | CONS ---
Date/Time of Note Date/Time of Note DATE: 08/09/16 TIME: 13:44 Assessment/Plan Assessment/Plan Chief Complaint/Hosp Course 1. Systemic inflammatory response syndrome. 2. End-stage renal disease. 3. Hypertension. 4. Atherosclerotic heart disease. 5. Dyslipidemia. 6. History of myocardial infarction. 7. History of coronary angiogram and intervention in the past. 8. History of pneumonia. 9. History of congestive heart failure. 10. History of osteoarthritis. 11. History of degenerative joint disease. 12. History of neuropathy. 13 anxiet Problems: Additional Assessment/Plan 1. Continue HD Consultation Date/Type/Reason Admit Date/Time August 06, 2016 at 16:25 Initial Consult Date 08/07/2016 Type of Consultation: renal Reason for Consultation Dr Keen 24 HR Interval Summary Constitutional: improved, no complaints Exam/Review of Systems Vital Signs Vitals Vital Signs Date Time Temp Pulse Resp B/P Pulse Ox O2 Delivery O2 Flow Rate FiO2 08/09/16 08:24 98.2 81 18 117/61 97 08/06/16 03:30 Room Air Intake and Output 08/08/16 08/08/16 08/09/16 15:00 23:00 07:00 Intake Total 200 ml 770 ml 355 ml Output Total 2300 ml Balance -2100 ml 770 ml 355 ml Exam Constitutional: alert, oriented Psych: no complaints Eyes: nl conjunctiva Neck: supple Respiratory: clear to auscultation Cardiovascular: regular rate and rhythm Results Result Diagram: 08/09/16 0545 08/09/16 0545 Results 24 hrs Laboratory Tests Test 08/09/16 05:45 White Blood Count 8.9 Red Blood Count 3.28 L Hemoglobin 10.2 L Hematocrit 31.6 L Mean Corpuscular Volume 96.3 Mean Corpuscular Hemoglobin 31.1 Mean Corpuscular Hemoglobin Concent 32.3 Red Cell Distribution Width 13.7 Platelet Count 201 Mean Platelet Volume 9.9 Neutrophils % 48.7 Lymphocytes % 33.0 Monocytes % 13.5 H Eosinophils % 4.4 Basophils % 0.1 Nucleated Red Blood Cells % 0.0 Neutrophils # 4.4 Lymphocytes # 3.0 H Monocytes # 1.2 H Eosinophils # 0.4 Basophils # 0.0 Nucleated Red Blood Cells # 0.0 Sodium Level 142 Potassium Level 5.3 H Chloride Level 98 Carbon Dioxide Level 29 Anion Gap 20 H Blood Urea Nitrogen 34 #H Creatinine 6.53 H Glucose Level 83 Calcium Level 8.3 L Medications Medications Current Medications Aspirin (Aspirin) 81 mg DAILY PO Last administered on 08/09/16 09:08; Admin Dose 81 MG; Start 08/06/16 at 09:00 Atorvastatin Calcium (Lipitor) 40 mg DAILY@21 PO Last administered on 20:09; Admin Dose 40 MG; Start 08/06/16 at 21:00 Cholecalciferol (Vitamin D) 400 units DAILY PO Last administered on 08/09/16 09:08; Admin Dose 400 UNITS; Start 08/06/16 at 09:00 Cinacalcet (Sensipar) 30 mg DAILY PO Last administered on 08/09/16 09:08; Admin Dose 30 MG; Start 08/06/16 at 09:00 Clopidogrel Bisulfate (plaVIX) 75 mg DAILY PO Last administered on 08/09/16 09 :08; Admin Dose 75 MG; Start 08/06/16 at 09:00 Docusate Sodium (Colace) 100 mg DAILY PO Last administered on 08/09/16 09:08; Admin Dose 100 MG; Start 08/06/16 at 09:00 Losartan Potassium (Cozaar) 25 mg DAILY PO Last administered on 08/09/16 09:09 ; Admin Dose 25 MG; Start 08/06/16 at 09:00 Megestrol Acetate (Megace) 40 mg BID PO Last administered on 08/09/16 09:07; Admin Dose 40 MG; Start 08/06/16 at 09:00 Multivit/Ca Carb/ B Cmplx/FA/Prenat (Carmina-Boris) 1 tab DAILY PO Last administered on 08/09/16 09:08; Admin Dose 1 TAB; Start 08/06/16 at 09:00 Pantoprazole (Protonix Tab) 40 mg DAILY@06 PO Last administered on 08/09/16 05 :15; Admin Dose 40 MG; Start 08/06/16 at 06:00 Sevelamer Carbonate (Renvela) 0.8 gm TID PO Last administered on 08/09/16 13: 07; Admin Dose 0.8 GM; Start 08/06/16 at 09:00 Carvedilol (Coreg) 12.5 mg BID PO Last administered on 08/09/16 09:09; Admin Dose 12.5 MG; Start 08/06/16 at 09:00 Tramadol HCl (Ultram) 50 mg Q8H PRN PO PAIN Last administered on 08/08/16 20: 10; Admin Dose 50 MG; Start 08/06/16 at 04:00 Acetaminophen 650 mg 650 mg Q8H PRN PO PAIN AND OR ELEVATED TEMP Last administered on 08/08/16 23:29; Admin Dose 650 MG; Start 08/06/16 at 04:00 Ceftriaxone Sodium (Rocephin) 50 ml @ 100 mls/hr Q24H IVPB Last administered on 08/08/16 16:25; Admin Dose 100 MLS/HR; Start 08/06/16 at 16:00 Lorazepam (Ativan) 1 mg Q6H PRN PO ANXIETY; Start 08/07/16 at 13:30 MAX HERNANDEZ August 09, 2016 13:45
[2016-08-09] MEDS: CEFTRIAXONE 1 GM/50 ML (PMX) 50 ML IVPB SCH (16:00)
--- NOTE | 2016-08-09 21:54 | PN ---
DATE: 08/09/2016 SUBJECTIVE: No acute changes. Patient is alert, eating lunch, looks comfortable. Denies pain, dis comfort. No nausea, vomiting, diarrhea. No fevers. MICROBIOLOGY: Blood cultures remain negative. INDWELLINGS: Left upper extremity AV fistula. PHYSICAL EXAMINATION: GENERAL: This is a fragile, well-developed, elderly woman who is alert, in no distress. HEENT: Head atraumatic, normocephalic. Sclerae anicteric. Buccal mucosa dry. NECK: Supple, trachea midline. CHEST: Rise symmetrical. Breath sounds clear. HEART: S1, S2. ABDOMEN: Soft. Bowel tones present. EXTREMITIES: Without cyanosis. ASSESSMENT: 1. Systemic inflammatory response syndrome, status post fevers with chills. Cultures have been neg ative. 2. End-stage renal disease. 3. Hypertension. 4. Coronary artery disease. 5. ALLERGIES TO VANCOMYCIN. PLAN: The patient remains stable off antibiotics. All cultures negative. Continue present care an d observe. Dictated By: ZINA MATAMOROS RECEPTION INTERVIEWER for REI RESTREPO/HEATHER Conf#: [id number] DID#: [id number]
--- NOTE | 2016-08-13 11:55 | DS ---
Date/Time of Note Date/Time of Note DATE: 08/13/16 TIME: 11:53 Discharge Summary Admission/Discharge Info Admit Date/Time August 06, 2016 at 16:25 Discharge Date/Time August 09, 2016 at 18:40 Final Diagnosis 1) febrile illness 2) end stage renal disease Consults 1) Infectious disease 2) Nephrology Hospital Course Patient with end stage renal disease on hemodialysis comes in with a febrile illness. She was treated with antibiotics and she slowly improved. By the time of discharge, patient's febrile illness has resolved and the patient is stable for discharge per ID and nephrology consultants. 1. Febrile illness. Follow up on final cultures. 2. Hemodialysis dependent, end-stage renal disease. Dr. Keen is following in from nephrology standpoint. Continue dialysis 3. Diastolic congestive heart failure. Continue Coreg. 4. Hypertension. Continue Cozaar. 5. Osteoarthritis. 6. Dyslipidemia. Continue statin. 7. Nonobstructive moderate coronary artery disease. Continue patient on Plavix. Home Meds Active Scripts Acetaminophen* (Tylenol*) 325 Mg Tablet, 2 TAB PO Q8 Y for PAIN AND OR ELEVATED TEMP, #20 TAB Prov:GELY WHITE MD 08/05/16 Acetaminophen* (Tylenol*) 325 Mg Tablet, 2 TAB PO Q8 Y for PAIN AND OR ELEVATED TEMP, #20 TAB Prov:GELY WHITE MD 08/05/16 Clopidogrel Bisulfate (Clopidogrel) 75 Mg Tab, 75 MG PO DAILY for 30 Days Prov:TOAN HECK 02/07/15 [Carvedilol] 6.25 MG TAB No Conflict Check, 12.5 MG PO BID for 30 Days, TAB Prov:TOAN HECK 02/07/15 Atorvastatin Calcium* (Atorvastatin Calcium*) 20 Mg Tab, 40 MG PO HS for 30 Days Prov:TOAN HECK 02/07/15 Tramadol HCl (Tramadol HCl) 50 Mg Tab, 50 MG PO Q8 Y for PAIN, #10 TAB Prov:ROSLYN OLIVARES MD 01/10/15 Reported Medications Cinacalcet* (Sensipar*) 30 Mg Tab, 30 MG PO DAILY, TAB 01/10/15 Docusate Sodium* (Docusate Sodium*) 100 Mg Capsule, 100 MG PO DAILY, CAP 01/10/15 Cholecalciferol* (Vitamin D*) 400 Unit Tablet, 400 UNIT PO DAILY, TAB 01/10/15 Megestrol Acetate* (Megestrol Acetate*) 40 Mg Tablet, 40 MG PO BID, TAB 01/10/15 Zolpidem Tartrate* (Ambien*) 5 Mg Tablet, 5 MG PO HS JULY REPEAT X 1 Y for INSOMNIA, TAB 01/10/15 Amino Acids/Protein Hydrolys (Liquacel 100 Liquid Packet) 30 Ml Liquid.pkt, 30 ML PO Q SCHED DIALYSIS TRM 01/10/15 Darbepoetin Sulaiman In Polysorbat (Aranesp) 25 Mcg/Ml Vial, 25 MCG IV WEEKLY ON 1ST TRMT, VIAL 01/10/15 Iron Sucrose* (Venofer*) 100 Mg/5 Ml Vial, 50 MG IV WEEKLY ON 2ND TRMT, VIAL 01/10/15 Paricalcitol* (Zemplar*) 2 Mcg/Ml Vial, 2 MCG IV 1ST, 2ND,3RD TRMT, VIAL 01/10/15 Multivit/Ca Carb/B Cmplx/Fa* (Carmina-Boris*) 1 Tab Tab, 1 TAB PO DAILY, TAB 01/10/15 Sevelamer Carbonate* (Renvela*) 800 Mg Tablet, 800 MG PO TID 07/28/12 Pantoprazole* (Protonix*) 40 Mg Tablet.dr, 40 MG PO DAILY 07/28/12 Losartan Potassium* (Cozaar*) 25 Mg Tablet, 25 MG PO DAILY 07/28/12 Aspirin* (Aspirin* Chew) 81 Mg Tab.chew, 81 MG PO DAILY 07/28/12 Primary Care Provider MD BRITTNEY Bang LOREN Y August 13, 2016 11:55
== END 2016-08-09 18:40 | disposition home or self-care (01) | DRG 864 ==
LOC: E/R 21:31 → MS2 08-06 01:12 → OBSVTOIN 08-06 16:25 → MS2 08-06 20:50
PROVIDERS: ADMIT Internal Medicine; ATTEND Internal Medicine
PROC: 5A1D60Z (ICD-10-PCS; principal; 2016-08-06)
DX: R50.9 Fever, unspecified (principal); N18.6 End stage renal disease; I50.30 Unspecified diastolic (congestive) heart failure; R65.10 Systemic inflammatory response syndrome (SIRS) of non-infectious origin without acute organ dysfunction; Z99.2 Dependence on renal dialysis; F41.9 Anxiety disorder, unspecified; I25.10 Atherosclerotic heart disease of native coronary artery without angina pectoris; R20.0 Anesthesia of skin
CPT/HCPCS: 36415; 71010; 80048; 80053; 83605; 84484; 85025; 85610; 85730; 87040; 87081; 87400; 90935; 93005; G0378; J0696; J2916

== ENCOUNTER 2016-08-23 08:35 | Inpatient (IN) | payer MEDICARE, BC ==
[~2016-08-23] VITALS: Ht 152.4 cm; Wt 69.9 kg
--- NOTE | 2016-08-23 10:27 | RADRPT ---
PROCEDURE: XR Chest. CLINICAL INDICATION: Possible sepsis. TECHNIQUE: Single frontal view of the chest was obtained. COMPARISON: Chest x-ray 02/05/2015. FINDINGS: The soft tissues are normal. There are degenerative osteophytes in the thoracic spine. The left ve ntricle is enlarged. The calcifications in the mitral annulus. The cardiomediastinal silhouette an d hilar structures are normal. The pulmonary vasculature is normal. There are vascular calcificatio ns in the aortic arch. The diaphragms are flattened with no acute infiltrate is noted. The costophr enic angles are blunted. Chronic interstitial changes in the bases of the lungs are not excluded. IMPRESSION: 1. Cardiomegaly with calcification in the mitral annulus. 2. Atherosclerotic vascular disease. 3. Stable chest with no evidence of active cardiopulmonary disease. RPTAT:AAJJ Physician Dali Date Time Electronically viewed and signed by Physician Dali on 08/23/2016 10:26 LUIS/
[2016-08-23 11:54] LABS: ADD SCAN DIFF NO
[2016-08-23 11:59] LABS: BASOPHILS % 0.1 % (0.0-2.0); EOSINOPHILS # 0.3 10^3/ul (0.0-0.5); EOSINOPHILS % 3.4 % (0.0-7.0); HEMATOCRIT 32.5 % (37.0-47.0); HEMOGLOBIN 10.8 g/dl (12.0-16.0); LYMPHOCYTES # 2.7 10^3/ul (0.8-2.9); LYMPHOCYTES % 28.9 % (15.0-51.0); MEAN CORPUSCULAR HEMOGLOBIN 30.7 pg (29.0-33.0); MEAN CORPUSCULAR HGB CONC 33.2 g/dl (32.0-37.0); MEAN CORPUSCULAR VOLUME 92.3 fl (82.0-101.0); MEAN PLATELET VOLUME 9.8 fl (7.4-10.4); MONOCYTE # 1.2 10^3/ul (0.3-0.9); MONOCYTES % 13.2 % (0.0-11.0); NEUTROPHIL # 5.1 10^3/ul (1.6-7.5); NEUTROPHILS % 54.1 % (39.0-77.0); PLATELET COUNT 235 10^3/UL (140-415); RED BLOOD COUNT 3.52 10^6/ul (4.20-5.40); RED CELL DISTRIBUTION WIDTH 12.7 % (11.5-14.5); WHITE BLOOD COUNT 9.4 10^3/ul (4.8-10.8)
[2016-08-23 12:14] LABS: ALANINE AMINOTRANSFERASE 26 IU/L (13-69); ALBUMIN 3.9 g/dl (3.3-4.9); ALBUMIN/GLOBULIN RATIO 1.14; ALKALINE PHOSPHATASE 115 IU/L (42-121); ANION GAP 21 (8-16); ASPARTATE AMINO TRANSFERASE 23 IU/L (15-46); BILIRUBIN,INDIRECT 0.2 mg/dl (0-1.1); BILIRUBIN,TOTAL 0.2 mg/dl (0.2-1.3); BLOOD UREA NITROGEN 42 mg/dl (7-20); CALCIUM 7.7 mg/dl (8.4-10.2); CARBON DIOXIDE 27 mmol/L (21-31); CHLORIDE 89 mmol/L (97-110); CREATININE 5.66 mg/dl (0.44-1.00); GLUCOSE 78 mg/dl (70-220); POTASSIUM 5.1 mmol/L (3.5-5.1); SODIUM 132 mmol/L (135-144); TOTAL PROTEIN 7.3 g/dl (6.1-8.1)
[2016-08-23 12:30] LABS: TROPONIN-I < 0.012 ng/ml (0.00-0.12)
--- NOTE | 2016-08-23 12:47 | ERA ---
ER Documentation Chief Complaint Date/Time DATE: 08/23/16 TIME: 0915 Chief Complaint cough non productive and fevers for the past week. mild headache no neuro HPI 76-year-old female brought to the emergency department by her family for evaluation of cough and fever. Further history is available from conversations with her primary care doctor as well as review of her records. Patient states that over the last month or so she has had a cough and fever which gets worse at night. She has been told that she has been septic with a "blood infection." She was previously hospitalized, but hospital records do not indicate a blood infection with negative blood cultures. Family states that she has been having antibiotics with dialysis because of this ongoing infection. She continued to have ongoing fevers as well as a cough and all of her body pain and was brought to the emergency department for evaluation. ROS All systems reviewed and are negative except as per history of present illness. Medications Home Meds Active Scripts Acetaminophen* (Tylenol*) 325 Mg Tablet, 2 TAB PO Q8 Y for PAIN AND OR ELEVATED TEMP, #20 TAB Prov:GELY WHITE MD 08/05/16 Acetaminophen* (Tylenol*) 325 Mg Tablet, 2 TAB PO Q8 Y for PAIN AND OR ELEVATED TEMP, #20 TAB Prov:GELY WHITE MD 08/05/16 Clopidogrel Bisulfate (Clopidogrel) 75 Mg Tab, 75 MG PO DAILY for 30 Days Prov:TOAN HECK 02/07/15 [Carvedilol] 6.25 MG TAB No Conflict Check, 12.5 MG PO BID for 30 Days, TAB Prov:TOAN HECK 02/07/15 Atorvastatin Calcium* (Atorvastatin Calcium*) 20 Mg Tab, 40 MG PO HS for 30 Days Prov:TOAN HECK 02/07/15 Tramadol HCl (Tramadol HCl) 50 Mg Tab, 50 MG PO Q8 Y for PAIN, #10 TAB Prov:ROSLYN OLIVARES MD 01/10/15 Reported Medications Cinacalcet* (Sensipar*) 30 Mg Tab, 30 MG PO DAILY, TAB 01/10/15 Docusate Sodium* (Docusate Sodium*) 100 Mg Capsule, 100 MG PO DAILY, CAP 01/10/15 Cholecalciferol* (Vitamin D*) 400 Unit Tablet, 400 UNIT PO DAILY, TAB 01/10/15 Megestrol Acetate* (Megestrol Acetate*) 40 Mg Tablet, 40 MG PO BID, TAB 01/10/15 Zolpidem Tartrate* (Ambien*) 5 Mg Tablet, 5 MG PO HS MAY REPEAT X 1 Y for INSOMNIA, TAB 01/10/15 Amino Acids/Protein Hydrolys (Liquacel 100 Liquid Packet) 30 Ml Liquid.pkt, 30 ML PO Q SCHED DIALYSIS TRM 01/10/15 Darbepoetin Sulaiman In Polysorbat (Aranesp) 25 Mcg/Ml Vial, 25 MCG IV WEEKLY ON 1ST TRMT, VIAL 01/10/15 Iron Sucrose* (Venofer*) 100 Mg/5 Ml Vial, 50 MG IV WEEKLY ON 2ND TRMT, VIAL 01/10/15 Paricalcitol* (Zemplar*) 2 Mcg/Ml Vial, 2 MCG IV 1ST, 2ND,3RD TRMT, VIAL 01/10/15 Multivit/Ca Carb/B Cmplx/Fa* (Carmina-Boris*) 1 Tab Tab, 1 TAB PO DAILY, TAB 01/10/15 Sevelamer Carbonate* (Renvela*) 800 Mg Tablet, 800 MG PO TID 07/28/12 Pantoprazole* (Protonix*) 40 Mg Tablet.dr, 40 MG PO DAILY 07/28/12 Losartan Potassium* (Cozaar*) 25 Mg Tablet, 25 MG PO DAILY 07/28/12 Aspirin* (Aspirin* Chew) 81 Mg Tab.chew, 81 MG PO DAILY 07/28/12 Allergies Allergies: Coded Allergies: vancomycin (Verified Allergy, Unknown, 08/05/16) PMhx/Soc Medical and Surgical Hx: pt denies Medical Hx, pt denies Surgical Hx History of Surgery: Yes Anesthesia Reaction: No Hx Neurological Disorder: Yes (FORGETFUL) Hx Respiratory Disorders: Yes (H/O BRONCHITIS) Hx Cardiac Disorders: Yes (CAD) Hx Psychiatric Problems: No Hx Miscellaneous Medical Probl: Yes (ESRD) Hx Alcohol Use: No Hx Substance Use: No Hx Tobacco Use: No Smoking Status: Never smoker FmHx Noncontributory for chief complaint Physical Exam Vitals Vital Signs Date Time Temp Pulse Resp B/P Pulse Ox O2 Delivery O2 Flow Rate FiO2 08/23/16 09:57 77 17 124/71 100 Room Air 08/23/16 08:48 99.5 81 20 123/72 99 Physical Exam GENERAL: Patient is elderly but in no acute distress HEENT: Pupils equal, round, and reactive to light. EOMI. There is no scleral icterus. NECK: C-spine is soft and supple, there is no meningismus. There is no cervical lymphadenopathy. LUNGS: Clear to auscultation bilaterally. There are no rales, wheezes or rhonchi. HEART: Regular rate and rhythm, no murmurs, clicks, rubs or gallops. ABDOMEN: Soft, non-tender, non-distended. There are bowel sounds in all four quadrants. No rebound or guarding. EXTREMITIES: There is no peripheral cyanosis or edema. No focal swelling or erythema. NEURO: The patient moves all four extremities with 5/5 strength. Cranial nerves II - XII are intact. Normal gait. Alert and oriented SKIN: There is no apparent rash or petechiae. Dialysis shunt shows no evidence of obvious infection HEME/LYMPHATIC: There is no evidence of excessive bruising or lymphedema. PSYCHIATRIC: The patient does not appear anxious or depressed. Result Diagram: 08/23/16 1125 08/23/16 1125 Results 24 hrs Laboratory Tests Test 08/23/16 11:25 White Blood Count 9.410^3/ul Red Blood Count 3.5210^6/ul Hemoglobin 10.8g/dl Hematocrit 32.5% Mean Corpuscular Volume 92.3fl Mean Corpuscular Hemoglobin 30.7pg Mean Corpuscular Hemoglobin Concent 33.2g/dl Red Cell Distribution Width 12.7% Platelet Count 62569^3/UL Mean Platelet Volume 9.8fl Neutrophils % 54.1% Lymphocytes % 28.9% Monocytes % 13.2% Eosinophils % 3.4% Basophils % 0.1% Nucleated Red Blood Cells % 0.0/100WBC Neutrophils # 5.110^3/ul Lymphocytes # 2.710^3/ul Monocytes # 1.210^3/ul Eosinophils # 0.310^3/ul Basophils # 0.010^3/ul Nucleated Red Blood Cells # 0.010^3/ul Sodium Level 132mmol/L Potassium Level 5.1mmol/L Chloride Level 89mmol/L Carbon Dioxide Level 27mmol/L Anion Gap 21 Blood Urea Nitrogen 42mg/dl Creatinine 5.66mg/dl Glucose Level 78mg/dl Lactic Acid Level 1.7mmol/L Calcium Level 7.7mg/dl Total Bilirubin 0.2mg/dl Direct Bilirubin 0.00mg/dl Indirect Bilirubin 0.2mg/dl Aspartate Amino Transf (AST/SGOT) 23IU/L Alanine Aminotransferase (ALT/SGPT) 26IU/L Alkaline Phosphatase 115IU/L Troponin I < 0.012ng/ml Total Protein 7.3g/dl Albumin 3.9g/dl Globulin 3.40g/dl Albumin/Globulin Ratio 1.14 Procedures/MDM Patient was taken to a room, seen and evaluated. Comfort measures were initiated. Diagnostic tests were ordered and reviewed. 3 LEAD RHYTHM STRIP: Normal sinus rhythm without ectopy EK lead EKG reviewed by myself: Normal Sinus Rhythm Normal Jayess and intervals No ST elevation, depression, or T wave inversion Impression: Normal EKG RADIOLOGY: reviewed with the radiologist CONSULTATION: Dr. Keen was notified for admission REEVALUATION: Patient remained hemodynamically stable MEDICAL DECISION MAKIN-year-old female with multiple medical comorbid conditions including dialysis dependent renal failure presents with questionable fevers and chills. Differential diagnosis entertained and investigated was broad and potential high acuity including the possibility of possible sepsis. At this time, patient's lactate is normal and white count is normal and blood cultures from previous hospitalization were normal as well. It does not appear that this patient is septic. As per my conversations with the family and the primary care doctor, it is clear that the patient is having difficulty taking care of herself as an outpatient. Given the possibility of underlying abnormalities with her renal failure, patient will be admitted for observation and consideration of possible placement. Departure Diagnosis: Primary Impression: Renal failure, chronic Condition: AMMY Rodrigez August 23, 2016 12:47
[2016-08-23 15:00] VITALS: BP 165/68; PULSE 78; RESP 16
[2016-08-23 15:21] LABS: INR 1.07; PROTIME 13.9 Sec (12.2-14.2); PT RATIO 1.1
[2016-08-23 15:22] LABS: PARTIAL THROMBOPLASTIN TIME 28.5 Sec (25.0-35.0)
[2016-08-23] MEDS ORDERED: IBUP-1542 PO (15:40)
[2016-08-23] MEDS ORDERED: LORA1TAB PO (15:40)
[2016-08-23] MEDS ORDERED: LORA10TA3 PO (15:40)
[2016-08-23] MEDS ORDERED: HYDR-906 PO (15:40)
[2016-08-23] MEDS ORDERED: DIPH1TAB PO (15:40)
[2016-08-23] MEDS ORDERED: HYDROmorphONE 1 MG/ML SYG IV PRN (17:00)
[2016-08-23] MEDS ORDERED: ZOLPIDEM 5 MG TAB PO PRN (17:00)
[2016-08-23] MEDS ORDERED: DOCUSATE SODIUM 100 MG CAP PO PRN (17:00)
[2016-08-23] MEDS ORDERED: NACL 0.9% 3 ML SYG IV SCH (17:00)
[2016-08-23] MEDS ORDERED: DIPHENOXYLATE/ATROPINE TAB PO PRN (17:00)
[2016-08-23] MEDS ORDERED: ACETAMINOPHEN 325 MG TAB PO PRN (17:00)
[2016-08-23] MEDS ORDERED: ONDANSETRON 4 MG INJ IV PRN (17:00)
[2016-08-23] MEDS: SEVELAMER CARBONATE 0.8 GM PKT PO SCH (18:23)
[2016-08-23 20:26] VITALS: BP 119/64; RESP 18
[2016-08-23] MEDS: ATORVASTATIN 40 MG TAB PO SCH (20:52)
[2016-08-23] MEDS: HYDROCODONE/APAP (5/325) TAB PO PRN (20:57)
[2016-08-23] MEDS: ZOLPIDEM 5 MG TAB PO PRN (20:59)
[2016-08-23] MEDS: LORAZEPAM 1 MG TAB PO PRN (23:19)
[2016-08-24] MEDS: traMADol 50 MG TAB PO PRN (01:22)
--- NOTE | 2016-08-24 01:52 | HP ---
DATE OF ADMISSION: 08/23/2016 HISTORY OF PRESENT ILLNESS: The patient with history of ESRD, hypertension, diabetes mellitus, osteoarthritis, DJD, has been complaining of low-grade fever at home and the patient previously was seen and the patient was discharged home , now presents with similar complaints. Has history of cholecystectomy, history of hysterectomy, history of hypertension, history of borderline diabetes mellitus, status post DJD, history of CAD, history of MN. History of atherosclerotic heart disease. History of multiple hospitalizations. History of pneumonia. . History of congestive heart failure. History of hyperkalemia. ALLERGY HISTORY: VANCOMYCIN. SOCIAL HISTORY: Negative. FAMILY HISTORY: Negative at this point. MEDICATION HISTORY: Home medications include: 1. Tylenol. 2. Amino acid. 3. Aspirin. 4. Lipitor. 5. Vitamin D. 6. Sensipar. 7. Plavix. 8. Darbepoetin. 9. Lomotil. 10. Docusate sodium. 11. Hydrocodone. 12. Ibuprofen. 13. Venofer. 14. Loratadine. 15. MVI. 16. Losartan. 17. Megace. 18. Multiple vitamin. 19. Protonix. 20. Zemplar. 21. Renvela. 22. Ultram. 23. Ambien. 24. Coreg. REVIEW OF SYSTEMS: HEENT: Unremarkable. RESPIRATORY: Cough. CARDIOVASCULAR: Unremarkable. ABDOMEN: BS+_. EXTREMITIES: The patient swelling. CENTRAL NERVOUS SYSTEM: Unremarkable. PHYSICAL EXAMINATION: GENERAL: The patient is awake and alert. VITAL SIGNS: Temperature 99.5. HEAD: Atraumatic, normocephalic. Pupils equal, reactive to light. NECK: Supple. No JVD. LUNGS: Clear. CARDIOVASCULAR: S1, S2 normal. Systolic murmur noted. ABDOMEN: Soft, nontender. Bowel sounds present. No palpable mass or hepatosplenomegaly. No guarding, rebound tenderness. EXTREMITIES: There is no cyanosis, clubbing or edema. AV fistula in the left upper extremity noted. LABORATORY DATA: Sodium 130, potassium 5.1. Chest x-ray shows the patient has cardiomegaly with calcification of the mitral annulus, atherosclerosis, vascular disease, stable chest. ASSESSMENT1 FEVER R/O UTI ESRD HTN ASHD HX MN PLAN: To do fever workup, urinalysis, rectal temperature. Patient will have ID consultation. AJAY, ESR, as well as a 2D echo will be obtained. Orders were done. Dictated By: BELKIS HERNANDEZ/HEATHER Conf#: [id number] DID#: [id number] MTDD
[2016-08-24] MEDS: PANTOPRAZOLE (EC) 40 MG TAB PO SCH (05:47)
[2016-08-24 07:41] VITALS: BP 117/61; RESP 20
[2016-08-24] MEDS: ASPIRIN 81 MG TAB PO SCH (08:19)
[2016-08-24] MEDS: MULTIVIT/CA CARB/B CMPLX/FA TAB PO SCH (08:19)
[2016-08-24] MEDS: DOCUSATE SODIUM 100 MG CAP PO SCH (08:20)
[2016-08-24] MEDS: LOSARTAN 25 MG TAB PO SCH (08:20)
[2016-08-24] MEDS: SEVELAMER CARBONATE 0.8 GM PKT PO SCH ×3 (08:20→17:34)
[2016-08-24] MEDS: LORATADINE 10 MG TAB PO SCH (08:20)
[2016-08-24] MEDS: CLOPIDOGREL 75 MG TAB PO SCH (08:23)
[2016-08-24] MEDS: CHOLECALCIFEROL 400 UNITS TAB PO SCH (08:23)
[2016-08-24] MEDS: ENOXAPARIN 30 MG/0.3 ML SYG SC SCH (08:33)
[2016-08-24] MEDS ORDERED: ENOXAPARIN 40 MG/0.4 ML SYG SC SCH (09:00)
[2016-08-24] MEDS: ACETAMINOPHEN 325 MG TAB PO PRN (14:16)
--- NOTE | 2016-08-24 16:33 | PN ---
Date/Time of Note Date/Time of Note DATE: 08/24/16 TIME: 16:32 Assessment/Plan VTE Prophylaxis VTE Prophylaxis Intervention: other Lines/Catheters IV [facility] Urinary Cath still in place: No Assessment/Plan Chief Complaint/Hosp Course SIRS FEVER ESRD HTN PLAN PER ORDER HD AM Problems: Subjective 24 Hr Interval Summary Subjective hx not possible: other (FEVER) Respiratory: no complaints Cardiovascular: no complaints Gastrointestinal: no complaints Genitourinary: no complaints Musculoskeletal: no complaints Neurologic: no complaints Endocrine: no complaints Exam/Review of Systems Vital Signs Vitals Vital Signs Date Time Temp Pulse Resp B/P Pulse Ox O2 Delivery O2 Flow Rate FiO2 08/24/16 07:41 98.5 76 20 117/61 99 08/23/16 15:00 Room Air Intake and Output 08/23/16 08/23/16 08/24/16 15:00 23:00 07:00 Intake Total 240 ml 240 ml Output Total 0 ml Balance 240 ml 240 ml Exam Respiratory: clear to auscultation Cardiovascular: regular rate and rhythm Gastrointestinal: soft Genitourinary - Female: nl adnexae Musculoskeletal: nl extremities to inspection Results Result Diagram: 08/23/16 1125 08/23/16 1125 Medications Medications Current Medications Acetaminophen (Tylenol Tab) 325 mg Q8H PRN PO PAIN AND OR ELEVATED TEMP Last administered on 08/24/16 14:16; Admin Dose 325 MG; Start 08/23/16 at 17:00 Aspirin (Aspirin) 81 mg DAILY PO Last administered on 08/24/16 08:19; Admin Dose 81 MG; Start 08/24/16 at 09:00 Atorvastatin Calcium (Lipitor) 40 mg DAILY@21 PO Last administered on 20:52; Admin Dose 40 MG; Start 08/23/16 at 21:00 Cholecalciferol (Vitamin D) 400 units DAILY PO Last administered on 08/24/16 08:23; Admin Dose 400 UNITS; Start 08/24/16 at 09:00 Clopidogrel Bisulfate (plaVIX) 75 mg DAILY PO Last administered on 08/24/16 08 :23; Admin Dose 75 MG; Start 08/24/16 at 09:00 Diphenoxylate HCl/ Atropine (Lomotil) 1 tab Q12H PRN PO DIARRHEA; Start at 17:00 Docusate Sodium (Colace) 100 mg DAILY PO Last administered on 08/24/16 08:20; Admin Dose 100 MG; Start 08/24/16 at 09:00 Acetaminophen/ Hydrocodone Bitart ([place] (5/325)) 1 tab Q8H PRN PO PAIN Last administered on 08/23/16 20:57; Admin Dose 1 TAB; Start 08/23/16 at 17:00 Loratadine (Claritin) 10 mg DAILY PO Last administered on 08/24/16 08:20; Admin Dose 10 MG; Start 08/24/16 at 09:00 Lorazepam (Ativan) 1 mg Q8H PRN PO ANXIETY Last administered on 08/23/16 23:19 ; Admin Dose 1 MG; Start 08/23/16 at 17:00 Losartan Potassium (Cozaar) 25 mg DAILY PO Last administered on 08/24/16 08:20 ; Admin Dose 25 MG; Start 08/24/16 at 09:00 Multivit/Ca Carb/ B Cmplx/FA/Prenat (Carmina-Boris) 1 tab DAILY PO Last administered on 08/24/16 08:19; Admin Dose 1 TAB; Start 08/24/16 at 09:00 Pantoprazole (Protonix Tab) 40 mg DAILY@06 PO Last administered on 08/24/16 05 :47; Admin Dose 40 MG; Start 08/24/16 at 06:00 Tramadol HCl (Ultram) 50 mg Q8H PRN PO PAIN Last administered on 08/24/16 01: 22; Admin Dose 50 MG; Start 08/23/16 at 17:00 Ondansetron HCl (Zofran Inj) 4 mg Q6H PRN IV NAUSEA AND/OR VOMITING; Start at 17:00 Hydromorphone HCl (Dilaudid) 0.5 mg Q4H PRN IV SEVERE PAIN LEVEL 7-10; Start at 17:00 Docusate Sodium (Colace) 100 mg Q12H PRN PO CONSTIPATION; Start 08/23/16 at 17: 00 Bisacodyl (Dulcolax) 5 mg DAILY PRN PO CONSTIPATION; Start 08/23/16 at 17:00 Enoxaparin Sodium (Lovenox) 30 mg DAILY SC Last administered on 08/24/16 08:33 ; Admin Dose 30 MG; Start 08/24/16 at 09:00 Miscellaneous Information Patients own medicat... BID@ XX ; Start 08/24/16 at 10:00 BELKIS INTERIANO MD August 24, 2016 16:33
--- NOTE | 2016-08-24 16:43 | RADRPT ---
PROCEDURE: CT chest, abdomen, pelvis without contrast. CLINICAL INDICATION: Tumor. TECHNIQUE: Routine chest, abdominal, and pelvic CT was performed without intravenous contrast and r eformatted in the axial, coronal, sagittal planes. Radiation dose: CTDIvol (mGy) = 15.2; total DLP mGy-cm = 989. One or more of the following radiation dose techniques were used: -Automated exposure control. -Adjust of the mA and/or kV according to patient size. -Use of iterative reconstruction technique. COMPARISON: CT, 07/05/2016. FINDINGS: Mild diffuse bronchial wall thickening without focal consolidation. No pneumothorax or pleural effu sions. No suspicious pulmonary nodule or mass concerning for primary or secondary neoplasia. There is a nonspecific 4 mm ground-glass nodule identified in the right middle lobe. Cardiomegaly with three-vessel coronary calcifications. No mediastinal or hilar lymphadenopathy. T here are dense mitral annular calcifications. There is moderate to severe atherosclerotic aortic ca lcifications without aneurysm. Heterogeneous thyroid gland. Markedly limited unenhanced images of the liver, pancreas, adrenal glands, and spleen demonstrate no gross abnormality. No abnormal bowel wall thickening or dilatation. Diastases of the rectus abdominis musculature with a small fat-containing umbilical hernia Surgical absence of the gallbladder without biliary dilatation. Kidneys are markedly atrophic without hydronephrosis or nephrolithiasis. The uterus is surgically absent. No adnexal cyst or mass. No free fluid or fluid collection. No l ymphadenopathy. No concerning bone lesions. IMPRESSION: Please note that the assessment of neoplasm is significantly limited in the absence of intravenous c ontrast. Within the limitations of the examination, no obvious finding suggesting neoplasm in the c hest, abdomen, or pelvis. RPTAT: EE .Charles Frias MD, MD Date Time Electronically viewed and signed by .Charles Frias MD, MD on 08/24/2016 16:47 .C/
[2016-08-24] MEDS: CINACALCET 30 MG TAB PO SCH (17:34)
[2016-08-24] MEDS: HYDROCODONE/APAP (5/325) TAB PO PRN (19:34)
[2016-08-24 20:00] VITALS: BP 141/62; RESP 20
[2016-08-24] MEDS: BISACODYL (EC) 5 MG TAB PO PRN (21:55)
[2016-08-24] MEDS: ZOLPIDEM 5 MG TAB PO PRN ×2 (21:55→23:22)
[2016-08-24] MEDS: ATORVASTATIN 40 MG TAB PO SCH (21:55)
[2016-08-24] MEDS: DIPHENHYDRAMINE 25 MG CAP PO PRN (22:18)
[2016-08-25] VITALS (9 sets, daily range): BP systolic 112–133; BP diastolic 52–77; PULSE 77–81; RESP 18–20
[2016-08-25 00:39] LABS: ADD UMIC YES; URINE BILIRUBIN (Dip) NEGATIVE (NEGATIVE); URINE BLOOD (Dip) TRACE (NEGATIVE); URINE COLOR LT. YELLOW (YELLOW); URINE GLUCOSE (Dip) NEGATIVE (NEGATIVE); URINE KETONES (Dip) NEGATIVE (NEGATIVE); URINE LEUKOCYTE ESTERASE (Dip) 3+ (NEGATIVE); URINE NITRITE (Dip) NEGATIVE (NEGATIVE); URINE TOTAL PROTEIN (Dip) 2+ (NEGATIVE); URINE UROBILINOGEN (Dip) 0.2 E.U./dL (0.1-1.0)
[2016-08-25 00:48] LABS: SQUAMOUS EPITHELIAL CELL,UR MANY; URINE RBCS 0-2 /HPF (0)
[2016-08-25 00:49] LABS: BACTERIA,URINE FEW
[2016-08-25] MEDS: LORAZEPAM 1 MG TAB PO PRN (02:56)
[2016-08-25 05:23] LABS: ADD SCAN DIFF NO
[2016-08-25 05:29] LABS: BASOPHILS % 0.1 % (0.0-2.0); EOSINOPHILS # 0.4 10^3/ul (0.0-0.5); EOSINOPHILS % 3.9 % (0.0-7.0); HEMATOCRIT 27.5 % (37.0-47.0); HEMOGLOBIN 9.7 g/dl (12.0-16.0); LYMPHOCYTES # 3.3 10^3/ul (0.8-2.9); LYMPHOCYTES % 29.9 % (15.0-51.0); MEAN CORPUSCULAR HEMOGLOBIN 31.3 pg (29.0-33.0); MEAN CORPUSCULAR HGB CONC 35.3 g/dl (32.0-37.0); MEAN CORPUSCULAR VOLUME 88.7 fl (82.0-101.0); MEAN PLATELET VOLUME 9.6 fl (7.4-10.4); MONOCYTE # 1.3 10^3/ul (0.3-0.9); MONOCYTES % 12.3 % (0.0-11.0); NEUTROPHIL # 5.8 10^3/ul (1.6-7.5); NEUTROPHILS % 53.4 % (39.0-77.0); PLATELET COUNT 225 10^3/UL (140-415); RED CELL DISTRIBUTION WIDTH 11.9 % (11.5-14.5); WHITE BLOOD COUNT 10.9 10^3/ul (4.8-10.8)
[2016-08-25] MEDS: PANTOPRAZOLE (EC) 40 MG TAB PO SCH (05:56)
[2016-08-25 06:27] LABS: ALBUMIN 3.4 g/dl (3.3-4.9); ALBUMIN/GLOBULIN RATIO 1.17; CALCIUM 7.5 mg/dl (8.4-10.2); POTASSIUM 5.6 mmol/L (3.5-5.1); TOTAL PROTEIN 6.3 g/dl (6.1-8.1)
[2016-08-25 06:58] LABS: CREATININE 8.57 mg/dl (0.44-1.00)
[2016-08-25] MEDS: DOCUSATE SODIUM 100 MG CAP PO SCH (08:01)
[2016-08-25] MEDS: ASPIRIN 81 MG TAB PO SCH (08:01)
[2016-08-25] MEDS: CHOLECALCIFEROL 400 UNITS TAB PO SCH (08:01)
[2016-08-25] MEDS: CLOPIDOGREL 75 MG TAB PO SCH (08:01)
[2016-08-25] MEDS: MULTIVIT/CA CARB/B CMPLX/FA TAB PO SCH (08:01)
[2016-08-25] MEDS: LORATADINE 10 MG TAB PO SCH (08:01)
[2016-08-25] MEDS: SEVELAMER CARBONATE 0.8 GM PKT PO SCH ×3 (08:01→17:18)
[2016-08-25] MEDS: LOSARTAN 25 MG TAB PO SCH (08:03)
--- NOTE | 2016-08-25 08:30 | CONS ---
Date/Time of Note Date/Time of Note DATE: 08/25/16 TIME: 08:30 Consultation Date/Type/Reason Admit Date/Time August 23, 2016 at 12:44 Initial Consult Date Exam/Review of Systems Vital Signs Vitals Vital Signs Date Time Temp Pulse Resp B/P Pulse Ox O2 Delivery O2 Flow Rate FiO2 08/25/16 07:59 97.4 78 20 133/77 100 08/24/16 20:45 2.0 08/23/16 15:00 Room Air Intake and Output 08/24/16 08/24/16 08/25/16 15:00 23:00 07:00 Intake Total 840 ml Output Total 0 ml Balance 840 ml Results Result Diagram: 08/25/16 0505 08/25/16 0505 Results 24 hrs Laboratory Tests Test 08/24/16 21:45 08/25/16 05:05 Urine Color LT. YELLOW Urine Clarity SLIGHTLY CLOUDY Urine pH 7.0 Urine Specific [place] 1.010 Urine Ketones NEGATIVE Urine Nitrite NEGATIVE Urine Bilirubin NEGATIVE Urine Urobilinogen 0.2 E.U./dL Urine Leukocyte Esterase 3+ H Urine Microscopic RBC 0-2 Urine Microscopic WBC 10-25 Urine Squamous Epithelial Cells MANY Urine Amorphous Urates FEW Urine Bacteria FEW Urine Hemoglobin TRACE Urine Glucose NEGATIVE Urine Total Protein 2+ H White Blood Count 10.9 H Red Blood Count 3.10 L Hemoglobin 9.7 L Hematocrit 27.5 L Mean Corpuscular Volume 88.7 Mean Corpuscular Hemoglobin 31.3 Mean Corpuscular Hemoglobin Concent 35.3 Red Cell Distribution Width 11.9 Platelet Count 225 Mean Platelet Volume 9.6 Neutrophils % 53.4 Lymphocytes % 29.9 Monocytes % 12.3 H Eosinophils % 3.9 Basophils % 0.1 Nucleated Red Blood Cells % 0.0 Neutrophils # 5.8 Lymphocytes # 3.3 H Monocytes # 1.3 H Eosinophils # 0.4 Basophils # 0.0 Nucleated Red Blood Cells # 0.0 Sodium Level 125 L Potassium Level 5.6 H Chloride Level 84 L Carbon Dioxide Level 23 Anion Gap 24 H Blood Urea Nitrogen 73 #H Creatinine 8.57 #H Glucose Level 90 Calcium Level 7.5 L Total Bilirubin 0.0 L Direct Bilirubin 0.00 Indirect Bilirubin 0.0 Aspartate Amino Transf (AST/SGOT) 24 Alanine Aminotransferase (ALT/SGPT) 22 Alkaline Phosphatase 107 Total Protein 6.3 # Albumin 3.4 Globulin 2.90 Albumin/Globulin Ratio 1.17 Medications Medications Current Medications Acetaminophen (Tylenol Tab) 325 mg Q8H PRN PO PAIN AND OR ELEVATED TEMP Last administered on 08/24/16 14:16; Admin Dose 325 MG; Start 08/23/16 at 17:00 Aspirin (Aspirin) 81 mg DAILY PO Last administered on 08/24/16 08:19; Admin Dose 81 MG; Start 08/24/16 at 09:00 Atorvastatin Calcium (Lipitor) 40 mg DAILY@21 PO Last administered on 21:55; Admin Dose 40 MG; Start 08/23/16 at 21:00 Cholecalciferol (Vitamin D) 400 units DAILY PO Last administered on 08/24/16 08:23; Admin Dose 400 UNITS; Start 08/24/16 at 09:00 Clopidogrel Bisulfate (plaVIX) 75 mg DAILY PO Last administered on 08/24/16 08 :23; Admin Dose 75 MG; Start 08/24/16 at 09:00 Diphenoxylate HCl/ Atropine (Lomotil) 1 tab Q12H PRN PO DIARRHEA; Start at 17:00 Docusate Sodium (Colace) 100 mg DAILY PO Last administered on 08/24/16 08:20; Admin Dose 100 MG; Start 08/24/16 at 09:00 Acetaminophen/ Hydrocodone Bitart ([place] (5/325)) 1 tab Q8H PRN PO PAIN Last administered on 08/24/16 19:34; Admin Dose 1 TAB; Start 08/23/16 at 17:00 Loratadine (Claritin) 10 mg DAILY PO Last administered on 08/24/16 08:20; Admin Dose 10 MG; Start 08/24/16 at 09:00 Lorazepam (Ativan) 1 mg Q8H PRN PO ANXIETY Last administered on 08/25/16 02:56 ; Admin Dose 1 MG; Start 08/23/16 at 17:00 Losartan Potassium (Cozaar) 25 mg DAILY PO Last administered on 08/24/16 08:20 ; Admin Dose 25 MG; Start 08/24/16 at 09:00 Multivit/Ca Carb/ B Cmplx/FA/Prenat (Carmina-Boris) 1 tab DAILY PO Last administered on 08/24/16 08:19; Admin Dose 1 TAB; Start 08/24/16 at 09:00 Pantoprazole (Protonix Tab) 40 mg DAILY@06 PO Last administered on 08/25/16 05 :56; Admin Dose 40 MG; Start 08/24/16 at 06:00 Tramadol HCl (Ultram) 50 mg Q8H PRN PO PAIN Last administered on 08/24/16 01: 22; Admin Dose 50 MG; Start 08/23/16 at 17:00 Ondansetron HCl (Zofran Inj) 4 mg Q6H PRN IV NAUSEA AND/OR VOMITING; Start at 17:00 Hydromorphone HCl (Dilaudid) 0.5 mg Q4H PRN IV SEVERE PAIN LEVEL 7-10; Start at 17:00 Docusate Sodium (Colace) 100 mg Q12H PRN PO CONSTIPATION; Start 08/23/16 at 17: 00 Bisacodyl (Dulcolax) 5 mg DAILY PRN PO CONSTIPATION Last administered on 21:55; Admin Dose 5 MG; Start 08/23/16 at 17:00 Enoxaparin Sodium (Lovenox) 30 mg DAILY SC Last administered on 08/24/16 08:33 ; Admin Dose 30 MG; Start 08/24/16 at 09:00 Miscellaneous Information Patients own medicat... BID@10,16 XX ; Start 08/24/16 at 10:00 Diphenhydramine HCl (Benadryl) 25 mg TID PRN PO ITCHING Last administered on 22:18; Admin Dose 25 MG; Start 08/24/16 at 22:30 DIPTI DISLA MD August 25, 2016 08:30
[2016-08-25] MEDS: ENOXAPARIN 30 MG/0.3 ML SYG SC SCH (08:31)
--- NOTE | 2016-08-25 08:35 | CONS ---
Date/Time of Note Date/Time of Note DATE: 08/25/16 TIME: 08:33 Assessment/Plan Assessment/Plan Chief Complaint/Hosp Course 1. Low grade fever 2, Hx of HTN 3, Hx of hyperlipidemia 4. ESRD on HD R: monitor closely off abx will review old records f/u cxs procalc further w/u dependent upon documented fever and any clinical changes Problems: Consultation Date/Type/Reason Admit Date/Time August 23, 2016 at 12:44 Date of Consultation: August 25, 2016 Reason for Consultation abx recs; sepsis Referring Provider: BELKIS INTERIANO Hx of Present Illness 76 yo female with pmh of ESRD on HD, HTN, hyperlipidemia who has been complaining of low grade fever. She apparently has had similar symptomatology in the past. Respiratory: no complaints Cardiovascular: no complaints Gastrointestinal: no complaints Genitourinary: no complaints Musculoskeletal: no complaints Neurologic: no complaints Endocrine: no complaints Social History Smoking Status: Never smoker Exam/Review of Systems Vital Signs Vitals Vital Signs Date Time Temp Pulse Resp B/P Pulse Ox O2 Delivery O2 Flow Rate FiO2 08/25/16 07:59 97.4 78 20 133/77 100 08/24/16 20:45 2.0 08/23/16 15:00 Room Air Intake and Output 08/24/16 08/24/16 08/25/16 15:00 23:00 07:00 Intake Total 840 ml Output Total 0 ml Balance 840 ml Exam Constitutional: alert, oriented, well developed Psych: nl mood/affect, no complaints, No anxiety, No confusion, No depression, No other, No suicidal Eyes: EOMI, PERRL, nl conjunctiva, nl lids, nl sclera ENMT: nl external ears & nose, nl lips & teeth, nl nasal mucosa & septum Neck: non-tender, supple Respiratory: clear to auscultation, normal air movement Cardiovascular: nl pulses, regular rate and rhythm Gastrointestinal: nl liver, spleen, non-tender, soft Results Result Diagram: 08/25/16 0505 08/25/16 0505 Results 24 hrs Laboratory Tests Test 08/24/16 21:45 08/25/16 05:05 Urine Color LT. YELLOW Urine Clarity SLIGHTLY CLOUDY Urine pH 7.0 Urine Specific [place] 1.010 Urine Ketones NEGATIVE Urine Nitrite NEGATIVE Urine Bilirubin NEGATIVE Urine Urobilinogen 0.2 E.U./dL Urine Leukocyte Esterase 3+ H Urine Microscopic RBC 0-2 Urine Microscopic WBC 10-25 Urine Squamous Epithelial Cells MANY Urine Amorphous Urates FEW Urine Bacteria FEW Urine Hemoglobin TRACE Urine Glucose NEGATIVE Urine Total Protein 2+ H White Blood Count 10.9 H Red Blood Count 3.10 L Hemoglobin 9.7 L Hematocrit 27.5 L Mean Corpuscular Volume 88.7 Mean Corpuscular Hemoglobin 31.3 Mean Corpuscular Hemoglobin Concent 35.3 Red Cell Distribution Width 11.9 Platelet Count 225 Mean Platelet Volume 9.6 Neutrophils % 53.4 Lymphocytes % 29.9 Monocytes % 12.3 H Eosinophils % 3.9 Basophils % 0.1 Nucleated Red Blood Cells % 0.0 Neutrophils # 5.8 Lymphocytes # 3.3 H Monocytes # 1.3 H Eosinophils # 0.4 Basophils # 0.0 Nucleated Red Blood Cells # 0.0 Sodium Level 125 L Potassium Level 5.6 H Chloride Level 84 L Carbon Dioxide Level 23 Anion Gap 24 H Blood Urea Nitrogen 73 #H Creatinine 8.57 #H Glucose Level 90 Calcium Level 7.5 L Total Bilirubin 0.0 L Direct Bilirubin 0.00 Indirect Bilirubin 0.0 Aspartate Amino Transf (AST/SGOT) 24 Alanine Aminotransferase (ALT/SGPT) 22 Alkaline Phosphatase 107 Total Protein 6.3 # Albumin 3.4 Globulin 2.90 Albumin/Globulin Ratio 1.17 Medications Medications Current Medications Acetaminophen (Tylenol Tab) 325 mg Q8H PRN PO PAIN AND OR ELEVATED TEMP Last administered on 08/24/16 14:16; Admin Dose 325 MG; Start 08/23/16 at 17:00 Aspirin (Aspirin) 81 mg DAILY PO Last administered on 08/24/16 08:19; Admin Dose 81 MG; Start 08/24/16 at 09:00 Atorvastatin Calcium (Lipitor) 40 mg DAILY@21 PO Last administered on 21:55; Admin Dose 40 MG; Start 08/23/16 at 21:00 Cholecalciferol (Vitamin D) 400 units DAILY PO Last administered on 08/24/16 08:23; Admin Dose 400 UNITS; Start 08/24/16 at 09:00 Clopidogrel Bisulfate (plaVIX) 75 mg DAILY PO Last administered on 08/24/16 08 :23; Admin Dose 75 MG; Start 08/24/16 at 09:00 Diphenoxylate HCl/ Atropine (Lomotil) 1 tab Q12H PRN PO DIARRHEA; Start at 17:00 Docusate Sodium (Colace) 100 mg DAILY PO Last administered on 08/24/16 08:20; Admin Dose 100 MG; Start 08/24/16 at 09:00 Acetaminophen/ Hydrocodone Bitart ([place] (5/325)) 1 tab Q8H PRN PO PAIN Last administered on 08/24/16 19:34; Admin Dose 1 TAB; Start 08/23/16 at 17:00 Loratadine (Claritin) 10 mg DAILY PO Last administered on 08/24/16 08:20; Admin Dose 10 MG; Start 08/24/16 at 09:00 Lorazepam (Ativan) 1 mg Q8H PRN PO ANXIETY Last administered on 08/25/16 02:56 ; Admin Dose 1 MG; Start 08/23/16 at 17:00 Losartan Potassium (Cozaar) 25 mg DAILY PO Last administered on 08/24/16 08:20 ; Admin Dose 25 MG; Start 08/24/16 at 09:00 Multivit/Ca Carb/ B Cmplx/FA/Prenat (Carmina-Boris) 1 tab DAILY PO Last administered on 08/24/16 08:19; Admin Dose 1 TAB; Start 08/24/16 at 09:00 Pantoprazole (Protonix Tab) 40 mg DAILY@06 PO Last administered on 08/25/16 05 :56; Admin Dose 40 MG; Start 08/24/16 at 06:00 Tramadol HCl (Ultram) 50 mg Q8H PRN PO PAIN Last administered on 08/24/16 01: 22; Admin Dose 50 MG; Start 08/23/16 at 17:00 Ondansetron HCl (Zofran Inj) 4 mg Q6H PRN IV NAUSEA AND/OR VOMITING; Start at 17:00 Hydromorphone HCl (Dilaudid) 0.5 mg Q4H PRN IV SEVERE PAIN LEVEL 7-10; Start at 17:00 Docusate Sodium (Colace) 100 mg Q12H PRN PO CONSTIPATION; Start 08/23/16 at 17: 00 Bisacodyl (Dulcolax) 5 mg DAILY PRN PO CONSTIPATION Last administered on 21:55; Admin Dose 5 MG; Start 08/23/16 at 17:00 Enoxaparin Sodium (Lovenox) 30 mg DAILY SC Last administered on 08/24/16 08:33 ; Admin Dose 30 MG; Start 08/24/16 at 09:00 Miscellaneous Information Patients own medicat... BID@10,16 XX ; Start 08/24/16 at 10:00 Diphenhydramine HCl (Benadryl) 25 mg TID PRN PO ITCHING Last administered on 22:18; Admin Dose 25 MG; Start 08/24/16 at 22:30 DIPTI DISLA MD August 25, 2016 08:35
--- NOTE | 2016-08-25 13:21 | PN ---
Date/Time of Note Date/Time of Note DATE: 08/25/16 TIME: 13:18 Assessment/Plan VTE Prophylaxis VTE Prophylaxis Intervention: ambulation Lines/Catheters IV [facility] Saline Lock Urinary Cath still in place: No Assessment/Plan Chief Complaint/Hosp Course 1. SIRS with fever 2. ESRD, HD dependent 3. HTN 4. UTI Problems: Assessment/Plan 1. Continue antibiotics Subjective 24 Hr Interval Summary Constitutional: chills, diaphoresis Respiratory: no complaints Cardiovascular: lightheadedness Gastrointestinal: decreased appetite Genitourinary: no complaints Musculoskeletal: no complaints Skin: no complaints Exam/Review of Systems Vital Signs Vitals Vital Signs Date Time Temp Pulse Resp B/P Pulse Ox O2 Delivery O2 Flow Rate FiO2 08/25/16 10:50 78 08/25/16 10:50 18 08/25/16 07:59 97.4 133/77 100 08/24/16 20:45 2.0 08/23/16 15:00 Room Air Intake and Output 08/24/16 08/24/16 08/25/16 15:00 23:00 07:00 Intake Total 840 ml Output Total 0 ml Balance 840 ml Exam Constitutional: alert, oriented Psych: no complaints Respiratory: clear to auscultation Cardiovascular: regular rate and rhythm Gastrointestinal: soft Genitourinary - Female: nl external genitalia Results Result Diagram: 08/25/16 0505 08/25/16 0505 Results 24 hrs Laboratory Tests Test 08/24/16 21:45 08/25/16 05:05 Urine Color LT. YELLOW Urine Clarity SLIGHTLY CLOUDY Urine pH 7.0 Urine Specific [place] 1.010 Urine Ketones NEGATIVE Urine Nitrite NEGATIVE Urine Bilirubin NEGATIVE Urine Urobilinogen 0.2 E.U./dL Urine Leukocyte Esterase 3+ H Urine Microscopic RBC 0-2 Urine Microscopic WBC 10-25 Urine Squamous Epithelial Cells MANY Urine Amorphous Urates FEW Urine Bacteria FEW Urine Hemoglobin TRACE Urine Glucose NEGATIVE Urine Total Protein 2+ H White Blood Count 10.9 H Red Blood Count 3.10 L Hemoglobin 9.7 L Hematocrit 27.5 L Mean Corpuscular Volume 88.7 Mean Corpuscular Hemoglobin 31.3 Mean Corpuscular Hemoglobin Concent 35.3 Red Cell Distribution Width 11.9 Platelet Count 225 Mean Platelet Volume 9.6 Neutrophils % 53.4 Lymphocytes % 29.9 Monocytes % 12.3 H Eosinophils % 3.9 Basophils % 0.1 Nucleated Red Blood Cells % 0.0 Neutrophils # 5.8 Lymphocytes # 3.3 H Monocytes # 1.3 H Eosinophils # 0.4 Basophils # 0.0 Nucleated Red Blood Cells # 0.0 Sodium Level 125 L Potassium Level 5.6 H Chloride Level 84 L Carbon Dioxide Level 23 Anion Gap 24 H Blood Urea Nitrogen 73 #H Creatinine 8.57 #H Glucose Level 90 Calcium Level 7.5 L Total Bilirubin 0.0 L Direct Bilirubin 0.00 Indirect Bilirubin 0.0 Aspartate Amino Transf (AST/SGOT) 24 Alanine Aminotransferase (ALT/SGPT) 22 Alkaline Phosphatase 107 Total Protein 6.3 # Albumin 3.4 Globulin 2.90 Albumin/Globulin Ratio 1.17 Medications Medications Current Medications Acetaminophen (Tylenol Tab) 325 mg Q8H PRN PO PAIN AND OR ELEVATED TEMP Last administered on 08/24/16 14:16; Admin Dose 325 MG; Start 08/23/16 at 17:00 Aspirin (Aspirin) 81 mg DAILY PO Last administered on 08/25/16 08:01; Admin Dose 81 MG; Start 08/24/16 at 09:00 Atorvastatin Calcium (Lipitor) 40 mg DAILY@21 PO Last administered on 21:55; Admin Dose 40 MG; Start 08/23/16 at 21:00 Cholecalciferol (Vitamin D) 400 units DAILY PO Last administered on 08/25/16 08:01; Admin Dose 400 UNITS; Start 08/24/16 at 09:00 Clopidogrel Bisulfate (plaVIX) 75 mg DAILY PO Last administered on 08/25/16 08 :01; Admin Dose 75 MG; Start 08/24/16 at 09:00 Diphenoxylate HCl/ Atropine (Lomotil) 1 tab Q12H PRN PO DIARRHEA; Start at 17:00 Docusate Sodium (Colace) 100 mg DAILY PO Last administered on 08/25/16 08:01; Admin Dose 100 MG; Start 08/24/16 at 09:00 Acetaminophen/ Hydrocodone Bitart ([place] (5/325)) 1 tab Q8H PRN PO PAIN Last administered on 08/24/16 19:34; Admin Dose 1 TAB; Start 08/23/16 at 17:00 Loratadine (Claritin) 10 mg DAILY PO Last administered on 08/25/16 08:01; Admin Dose 10 MG; Start 08/24/16 at 09:00 Lorazepam (Ativan) 1 mg Q8H PRN PO ANXIETY Last administered on 08/25/16 02:56 ; Admin Dose 1 MG; Start 08/23/16 at 17:00 Losartan Potassium (Cozaar) 25 mg DAILY PO Last administered on 08/24/16 08:20 ; Admin Dose 25 MG; Start 08/24/16 at 09:00 Multivit/Ca Carb/ B Cmplx/FA/Prenat (Carmina-Boris) 1 tab DAILY PO Last administered on 08/25/16 08:01; Admin Dose 1 TAB; Start 08/24/16 at 09:00 Pantoprazole (Protonix Tab) 40 mg DAILY@06 PO Last administered on 08/25/16 05 :56; Admin Dose 40 MG; Start 08/24/16 at 06:00 Tramadol HCl (Ultram) 50 mg Q8H PRN PO PAIN Last administered on 08/24/16 01: 22; Admin Dose 50 MG; Start 08/23/16 at 17:00 Ondansetron HCl (Zofran Inj) 4 mg Q6H PRN IV NAUSEA AND/OR VOMITING; Start at 17:00 Hydromorphone HCl (Dilaudid) 0.5 mg Q4H PRN IV SEVERE PAIN LEVEL 7-10; Start at 17:00 Docusate Sodium (Colace) 100 mg Q12H PRN PO CONSTIPATION; Start 08/23/16 at 17: 00 Bisacodyl (Dulcolax) 5 mg DAILY PRN PO CONSTIPATION Last administered on 21:55; Admin Dose 5 MG; Start 08/23/16 at 17:00 Enoxaparin Sodium (Lovenox) 30 mg DAILY SC Last administered on 08/25/16 08:31 ; Admin Dose 30 MG; Start 08/24/16 at 09:00 Miscellaneous Information Patients own medicat... BID@10,16 XX ; Start 08/24/16 at 10:00 Diphenhydramine HCl 25 mg 25 mg TID PRN PO ITCHING Last administered on 22:18; Admin Dose 25 MG; Start 08/24/16 at 22:30 Ceftriaxone Sodium (Rocephin) 50 ml @ 100 mls/hr Q24H IVPB ; Start 08/25/16 at 14:00 MAX HERNANDEZ August 25, 2016 13:21
[2016-08-25] MEDS: CEFTRIAXONE 1 GM/50 ML (PMX) 50 ML IVPB SCH (13:22)
[2016-08-25] MEDS: CINACALCET 30 MG TAB PO SCH (17:18)
[2016-08-25] MEDS: ACETAMINOPHEN 325 MG TAB PO PRN (18:39)
[2016-08-25] MEDS: DIPHENHYDRAMINE 25 MG CAP PO PRN (20:39)
[2016-08-25] MEDS: ATORVASTATIN 40 MG TAB PO SCH (20:39)
[2016-08-25] MEDS: ZOLPIDEM 5 MG TAB PO PRN ×2 (21:49→22:37)
[2016-08-25] MEDS: HYDROCODONE/APAP (5/325) TAB PO PRN (22:38)
[2016-08-26] MEDS: PANTOPRAZOLE (EC) 40 MG TAB PO SCH (05:06)
[2016-08-26 05:15] LABS: ADD SCAN DIFF NO
[2016-08-26 05:19] LABS: ABNORMAL IP MESSAGE 1; BASOPHILS % 0.1 % (0.0-2.0); EOSINOPHILS # 0.4 10^3/ul (0.0-0.5); EOSINOPHILS % 4.2 % (0.0-7.0); HEMATOCRIT 27.1 % (37.0-47.0); HEMOGLOBIN 9.2 g/dl (12.0-16.0); LYMPHOCYTES # 2.8 10^3/ul (0.8-2.9); LYMPHOCYTES % 30.4 % (15.0-51.0); MEAN CORPUSCULAR HEMOGLOBIN 30.6 pg (29.0-33.0); MEAN CORPUSCULAR HGB CONC 33.9 g/dl (32.0-37.0); MEAN PLATELET VOLUME 9.6 fl (7.4-10.4); MONOCYTE # 1.5 10^3/ul (0.3-0.9); MONOCYTES % 16.3 % (0.0-11.0); NEUTROPHIL # 4.5 10^3/ul (1.6-7.5); NEUTROPHILS % 48.7 % (39.0-77.0); PLATELET COUNT 217 10^3/UL (140-415); RED BLOOD COUNT 3.01 10^6/ul (4.20-5.40); RED CELL DISTRIBUTION WIDTH 12.2 % (11.5-14.5); WHITE BLOOD COUNT 9.3 10^3/ul (4.8-10.8)
[2016-08-26 05:36] LABS: CALCIUM 7.1 mg/dl (8.4-10.2); CREATININE 7.04 mg/dl (0.44-1.00); POTASSIUM 4.7 mmol/L (3.5-5.1)
[2016-08-26 07:56] VITALS: BP 109/53; RESP 16
[2016-08-26] MEDS: CLOPIDOGREL 75 MG TAB PO SCH (08:44)
[2016-08-26] MEDS: MULTIVIT/CA CARB/B CMPLX/FA TAB PO SCH (08:44)
[2016-08-26] MEDS: LORATADINE 10 MG TAB PO SCH (08:44)
[2016-08-26] MEDS: ASPIRIN 81 MG TAB PO SCH (08:45)
[2016-08-26] MEDS: DOCUSATE SODIUM 100 MG CAP PO SCH (08:45)
[2016-08-26] MEDS: CHOLECALCIFEROL 400 UNITS TAB PO SCH (08:45)
[2016-08-26] MEDS: LOSARTAN 25 MG TAB PO SCH (08:46)
[2016-08-26] MEDS: ENOXAPARIN 30 MG/0.3 ML SYG SC SCH (08:52)
[2016-08-26] MEDS: SEVELAMER CARBONATE 0.8 GM PKT PO SCH ×3 (08:53→18:12)
--- NOTE | 2016-08-26 14:23 | CONS ---
Date/Time of Note Date/Time of Note DATE: 08/26/16 TIME: 14:21 Assessment/Plan Assessment/Plan Chief Complaint/Hosp Course - s/p low grade temp on admission, resolving - probable contamination of the urine culture with mixed gram positive bacteria , urinalysis was unremarkable - RUE pain after phlebotomy, possible complex regional pain - Hx of HTN - Hx of hyperlipidemia - ESRD on HD - diabetes mellitus - osteoarthritis, DJD - s/p hysterectomy - history of CAD/TX recommendations - if pain of RUE persists, consider LEATHA - Pt's on empiric ceftriaxone (08/25/2016-); july d/c it if cultures are unremarkable (probable contamination of the urine culture with mixed gram positive bacteria) management d/w Pt Problems: Consultation Date/Type/Reason Admit Date/Time August 25, 2016 at 10:55 Initial Consult Date 08/25/16 Type of Consultation: ID Referring Provider: BELKIS INTERIANO MD 24 HR Interval Summary Constitutional: chills Detailed Summary Eyes: no complaints ENT: no complaints Respiratory: no complaints Cardiovascular: no complaints Gastrointestinal: no complaints Genitourinary: other (HD) Musculoskeletal: other (pain in RUE immediately after phlebotomy) Neurologic: No focal-weakness, No headache Endocrine: no complaints Lymphatic: no complaints Psychological: no complaints Exam/Review of Systems Vital Signs Vitals Vital Signs Date Time Temp Pulse Resp B/P Pulse Ox O2 Delivery O2 Flow Rate FiO2 08/26/16 07:56 99.0 81 16 109/53 99 08/26/16 06:13 2.0 08/23/16 15:00 Room Air Intake and Output 08/25/16 08/25/16 08/26/16 15:00 23:00 07:00 Intake Total 660 ml 890 ml 580 ml Output Total 2500 ml 0 ml Balance -1840 ml 890 ml 580 ml Exam Constitutional: alert, oriented, well developed Psych: nl mood/affect, no complaints Head: atraumatic, normocephalic Eyes: nl conjunctiva, nl lids ENMT: nl external ears & nose, nl nasal mucosa & septum Neck: supple Respiratory: clear to auscultation, normal air movement Cardiovascular: nl pulses, regular rate and rhythm Gastrointestinal: non-tender, soft Musculoskeletal: other (able to abduct RUE), No swelling Extremities: No edema Neurological: [employer] II-XII intact, nl mental status, No numbness Skin: nl turgor, No ecchymosis, No laceration, No rash or lesions Results Result Diagram: 08/26/1644608/26/16446 Results 24 hrs Laboratory Tests Test 08/25/16 17:05 08/26/16 04:47 Erythrocyte Sedimentation Rate 35 H C-Reactive Protein < 0.5 White Blood Count 9.3 Red Blood Count 3.01 L Hemoglobin 9.2 L Hematocrit 27.1 L Mean Corpuscular Volume 90.0 Mean Corpuscular Hemoglobin 30.6 Mean Corpuscular Hemoglobin Concent 33.9 Red Cell Distribution Width 12.2 Platelet Count 217 Mean Platelet Volume 9.6 Neutrophils % 48.7 Lymphocytes % 30.4 Monocytes % 16.3 H Eosinophils % 4.2 Basophils % 0.1 Nucleated Red Blood Cells % 0.0 Neutrophils # 4.5 Lymphocytes # 2.8 Monocytes # 1.5 H Eosinophils # 0.4 Basophils # 0.0 Nucleated Red Blood Cells # 0.0 Sodium Level 127 L Potassium Level 4.7 Chloride Level 92 L Carbon Dioxide Level 26 Anion Gap 14 # Blood Urea Nitrogen 49 #H Creatinine 7.04 H Glucose Level 90 Calcium Level 7.1 L Medications Medications Current Medications Acetaminophen (Tylenol Tab) 325 mg Q8H PRN PO PAIN AND OR ELEVATED TEMP Last administered on 08/25/16 18:39; Admin Dose 325 MG; Start 08/23/16 at 17:00 Aspirin (Aspirin) 81 mg DAILY PO Last administered on 08/26/16 08:45; Admin Dose 81 MG; Start 08/24/16 at 09:00 Atorvastatin Calcium (Lipitor) 40 mg DAILY@21 PO Last administered on 20:39; Admin Dose 40 MG; Start 08/23/16 at 21:00 Cholecalciferol (Vitamin D) 400 units DAILY PO Last administered on 08/26/16 08:45; Admin Dose 400 UNITS; Start 08/24/16 at 09:00 Clopidogrel Bisulfate (plaVIX) 75 mg DAILY PO Last administered on 08/26/16 08 :44; Admin Dose 75 MG; Start 08/24/16 at 09:00 Diphenoxylate HCl/ Atropine (Lomotil) 1 tab Q12H PRN PO DIARRHEA; Start at 17:00 Docusate Sodium (Colace) 100 mg DAILY PO Last administered on 08/26/16 08:45; Admin Dose 100 MG; Start 08/24/16 at 09:00 Acetaminophen/ Hydrocodone Bitart ([place] (5/325)) 1 tab Q8H PRN PO PAIN Last administered on 08/25/16 22:38; Admin Dose 1 TAB; Start 08/23/16 at 17:00 Loratadine (Claritin) 10 mg DAILY PO Last administered on 08/26/16 08:44; Admin Dose 10 MG; Start 08/24/16 at 09:00 Lorazepam (Ativan) 1 mg Q8H PRN PO ANXIETY Last administered on 08/25/16 02:56 ; Admin Dose 1 MG; Start 08/23/16 at 17:00 Losartan Potassium (Cozaar) 25 mg DAILY PO Last administered on 08/26/16 08:46 ; Admin Dose 25 MG; Start 08/24/16 at 09:00 Multivit/Ca Carb/ B Cmplx/FA/Prenat (Carmina-Boris) 1 tab DAILY PO Last administered on 08/26/16 08:44; Admin Dose 1 TAB; Start 08/24/16 at 09:00 Pantoprazole (Protonix Tab) 40 mg DAILY@06 PO Last administered on 08/26/16 05 :06; Admin Dose 40 MG; Start 08/24/16 at 06:00 Tramadol HCl (Ultram) 50 mg Q8H PRN PO PAIN Last administered on 08/24/16 01: 22; Admin Dose 50 MG; Start 08/23/16 at 17:00 Ondansetron HCl (Zofran Inj) 4 mg Q6H PRN IV NAUSEA AND/OR VOMITING; Start at 17:00 Hydromorphone HCl (Dilaudid) 0.5 mg Q4H PRN IV SEVERE PAIN LEVEL 7-10; Start at 17:00 Docusate Sodium (Colace) 100 mg Q12H PRN PO CONSTIPATION; Start 08/23/16 at 17: 00 Bisacodyl (Dulcolax) 5 mg DAILY PRN PO CONSTIPATION Last administered on 21:55; Admin Dose 5 MG; Start 5/27/17 at 17:00 Enoxaparin Sodium (Lovenox) 30 mg DAILY SC Last administered on 08/26/16 08:52 ; Admin Dose 30 MG; Start 08/24/16 at 09:00 Miscellaneous Information Patients own medicat... BID@10,16 XX ; Start 08/24/16 at 10:00 Diphenhydramine HCl 25 mg 25 mg TID PRN PO ITCHING Last administered on 20:39; Admin Dose 25 MG; Start 08/24/16 at 22:30 Ceftriaxone Sodium (Rocephin) 50 ml @ 100 mls/hr Q24H IVPB Last administered on 08/25/16 13:22; Admin Dose 100 MLS/HR; Start 08/25/16 at 14:00 DEIDRE RODRIGUEZ M.D. August 26, 2016 14:23
[2016-08-26] MEDS: CEFTRIAXONE 1 GM/50 ML (PMX) 50 ML IVPB SCH (14:26)
[2016-08-26] MEDS: ACETAMINOPHEN 325 MG TAB PO PRN (14:27)
[2016-08-26] MEDS: CINACALCET 30 MG TAB PO SCH (18:12)
--- NOTE | 2016-08-26 18:28 | PN ---
Date/Time of Note Date/Time of Note DATE: 08/26/16 TIME: 18:27 Assessment/Plan VTE Prophylaxis VTE Prophylaxis Intervention: other Lines/Catheters IV Catheter Type (from Nrs): Saline Lock Urinary Cath still in place: No Assessment/Plan Chief Complaint/Hosp Course SIRS FEVER ESRD HTN PLAN PER ORDER HD AM per id ck wbc scan if neg home Problems: Subjective 24 Hr Interval Summary Subjective hx not possible: other (fever better) Exam/Review of Systems Vital Signs Vitals Vital Signs Date Time Temp Pulse Resp B/P Pulse Ox O2 Delivery O2 Flow Rate FiO2 08/26/16 07:56 99.0 81 16 109/53 99 08/26/16 06:13 2.0 08/23/16 15:00 Room Air Intake and Output 08/25/16 08/25/16 08/26/16 15:00 23:00 07:00 Intake Total 660 ml 890 ml 580 ml Output Total 2500 ml 0 ml Balance -1840 ml 890 ml 580 ml Exam Neck: supple Respiratory: clear to auscultation Cardiovascular: regular rate and rhythm Gastrointestinal: soft Extremities: No edema Results Result Diagram: 08/26/16 0447 08/26/16 0447 Results 24 hrs Laboratory Tests Test 08/26/16 04:47 White Blood Count 9.3 Red Blood Count 3.01 L Hemoglobin 9.2 L Hematocrit 27.1 L Mean Corpuscular Volume 90.0 Mean Corpuscular Hemoglobin 30.6 Mean Corpuscular Hemoglobin Concent 33.9 Red Cell Distribution Width 12.2 Platelet Count 217 Mean Platelet Volume 9.6 Neutrophils % 48.7 Lymphocytes % 30.4 Monocytes % 16.3 H Eosinophils % 4.2 Basophils % 0.1 Nucleated Red Blood Cells % 0.0 Neutrophils # 4.5 Lymphocytes # 2.8 Monocytes # 1.5 H Eosinophils # 0.4 Basophils # 0.0 Nucleated Red Blood Cells # 0.0 Sodium Level 127 L Potassium Level 4.7 Chloride Level 92 L Carbon Dioxide Level 26 Anion Gap 14 # Blood Urea Nitrogen 49 #H Creatinine 7.04 H Glucose Level 90 Calcium Level 7.1 L Medications Medications Current Medications Acetaminophen (Tylenol Tab) 325 mg Q8H PRN PO PAIN AND OR ELEVATED TEMP Last administered on 08/26/16t 14:27; Admin Dose 325 MG; Start 08/23/16 at 17:00 Aspirin (Aspirin) 81 mg DAILY PO Last administered on 08/26/16 08:45; Admin Dose 81 MG; Start 08/24/16 at 09:00 Atorvastatin Calcium (Lipitor) 40 mg DAILY@21 PO Last administered on 20:39; Admin Dose 40 MG; Start 08/23/16 at 21:00 Cholecalciferol (Vitamin D) 400 units DAILY PO Last administered on 08/26/16 08:45; Admin Dose 400 UNITS; Start 08/24/16 at 09:00 Clopidogrel Bisulfate (plaVIX) 75 mg DAILY PO Last administered on 08/26/16 08 :44; Admin Dose 75 MG; Start 08/24/16 at 09:00 Diphenoxylate HCl/ Atropine (Lomotil) 1 tab Q12H PRN PO DIARRHEA; Start at 17:00 Docusate Sodium (Colace) 100 mg DAILY PO Last administered on 08/26/16 08:45; Admin Dose 100 MG; Start 08/24/16 at 09:00 Acetaminophen/ Hydrocodone Bitart ([place] (5/325)) 1 tab Q8H PRN PO PAIN Last administered on 08/25/16 22:38; Admin Dose 1 TAB; Start 08/23/16 at 17:00 Loratadine (Claritin) 10 mg DAILY PO Last administered on 08/26/16 08:44; Admin Dose 10 MG; Start 08/24/16 at 09:00 Lorazepam (Ativan) 1 mg Q8H PRN PO ANXIETY Last administered on 08/25/16 02:56 ; Admin Dose 1 MG; Start 08/23/16 at 17:00 Losartan Potassium (Cozaar) 25 mg DAILY PO Last administered on 08/26/16 08:46 ; Admin Dose 25 MG; Start 08/24/16 at 09:00 Multivit/Ca Carb/ B Cmplx/FA/Prenat ([place]mina-Boris) 1 tab DAILY PO Last administered on 08/26/16 08:44; Admin Dose 1 TAB; Start 08/24/16 at 09:00 Pantoprazole (Protonix Tab) 40 mg DAILY@06 PO Last administered on 08/26/16 05 :06; Admin Dose 40 MG; Start 08/24/16 at 06:00 Tramadol HCl (Ultram) 50 mg Q8H PRN PO PAIN Last administered on 08/24/16 01: 22; Admin Dose 50 MG; Start 08/23/16 at 17:00 Ondansetron HCl (Zofran Inj) 4 mg Q6H PRN IV NAUSEA AND/OR VOMITING; Start at 17:00 Hydromorphone HCl (Dilaudid) 0.5 mg Q4H PRN IV SEVERE PAIN LEVEL 7-10; Start at 17:00 Docusate Sodium (Colace) 100 mg Q12H PRN PO CONSTIPATION; Start 08/23/16 at 17: 00 Bisacodyl (Dulcolax) 5 mg DAILY PRN PO CONSTIPATION Last administered on 21:55; Admin Dose 5 MG; Start 08/23/16 at 17:00 Enoxaparin Sodium (Lovenox) 30 mg DAILY SC Last administered on 08/26/16 08:52 ; Admin Dose 30 MG; Start 08/24/16 at 09:00 Miscellaneous Information Patients own medicat... BID@10,16 XX ; Start 08/24/16 at 10:00 Diphenhydramine HCl 25 mg 25 mg TID PRN PO ITCHING Last administered on 20:39; Admin Dose 25 MG; Start 08/24/16 at 22:30 Ceftriaxone Sodium (Rocephin) 50 ml @ 100 mls/hr Q24H IVPB Last administered on 08/26/16 14:26; Admin Dose 100 MLS/HR; Start 08/25/16 at 14:00 BELKIS INTERIANO MD August 26, 2016 18:28
[2016-08-26] MEDS: DIPHENHYDRAMINE 25 MG CAP PO PRN (20:06)
[2016-08-26] MEDS: ATORVASTATIN 40 MG TAB PO SCH (20:06)
[2016-08-26] MEDS: BISACODYL (EC) 5 MG TAB PO PRN (20:06)
[2016-08-26] MEDS: HYDROCODONE/APAP (5/325) TAB PO PRN (20:07)
[2016-08-26 20:08] VITALS: BP 124/59; RESP 18
[2016-08-27] VITALS (8 sets, daily range): BP systolic 103–145; BP diastolic 55–76; PULSE 82–89; RESP 18
[2016-08-27] MEDS: ZOLPIDEM 5 MG TAB PO PRN ×2 (00:13→22:29)
[2016-08-27] MEDS: ACETAMINOPHEN 325 MG TAB PO PRN ×2 (00:13→09:19)
[2016-08-27] MEDS: DIPHENHYDRAMINE 25 MG CAP PO PRN ×2 (02:16→20:34)
[2016-08-27] MEDS: LORAZEPAM 1 MG TAB PO PRN (03:33)
[2016-08-27] MEDS: PANTOPRAZOLE (EC) 40 MG TAB PO SCH (06:00)
[2016-08-27] MEDS: MULTIVIT/CA CARB/B CMPLX/FA TAB PO SCH (09:19)
[2016-08-27] MEDS: CLOPIDOGREL 75 MG TAB PO SCH (09:19)
[2016-08-27] MEDS: ASPIRIN 81 MG TAB PO SCH (09:19)
[2016-08-27] MEDS: CHOLECALCIFEROL 400 UNITS TAB PO SCH (09:19)
[2016-08-27] MEDS: DOCUSATE SODIUM 100 MG CAP PO SCH (09:20)
[2016-08-27] MEDS: LORATADINE 10 MG TAB PO SCH (09:20)
[2016-08-27] MEDS: LOSARTAN 25 MG TAB PO SCH (09:24)
[2016-08-27] MEDS: SEVELAMER CARBONATE 0.8 GM PKT PO SCH ×3 (09:25→17:14)
[2016-08-27] MEDS: ENOXAPARIN 30 MG/0.3 ML SYG SC SCH (09:41)
--- NOTE | 2016-08-27 10:33 | CONS ---
Date/Time of Note Date/Time of Note DATE: 08/27/16 TIME: 10:32 Assessment/Plan Assessment/Plan Chief Complaint/Hosp Course - s/p low grade temp on admission, resolving - probable contamination of the urine culture with mixed gram positive bacteria , urinalysis was unremarkable - RUE pain after phlebotomy, possible complex regional pain - Hx of HTN - Hx of hyperlipidemia - ESRD on HD - diabetes mellitus - osteoarthritis, DJD - s/p hysterectomy - history of CAD/ME recommendations - I will review the results of WBC tagged scan; check CK - Pt's on empiric ceftriaxone (08/25/2016-); july d/c it if cultures are unremarkable (probable contamination of the urine culture with mixed gram positive bacteria) management d/w Pt Problems: Consultation Date/Type/Reason Admit Date/Time August 25, 2016 at 10:55 Initial Consult Date 08/25/16 Type of Consultation: ID Referring Provider: BELKIS INTERIANO MD 24 HR Interval Summary Free Text/Dictation less pain of RUE, pain in LUE after HD Constitutional: chills Detailed Summary Eyes: no complaints ENT: no complaints Respiratory: no complaints Cardiovascular: no complaints Gastrointestinal: no complaints Genitourinary: other (HORTENSIA) Musculoskeletal: other (less pain of RUE, pain of LUE after HD), swelling (R knee (chronic)) Skin: no complaints Neurologic: no complaints Exam/Review of Systems Vital Signs Vitals Vital Signs Date Time Temp Pulse Resp B/P Pulse Ox O2 Delivery O2 Flow Rate FiO2 08/27/16 07:30 88 18 08/26/16 20:08 99.3 124/59 99 08/26/16 06:13 2.0 08/23/16 15:00 Room Air Intake and Output 08/26/16 08/26/16 08/27/16 15:00 23:00 07:00 Intake Total 50 ml 380 ml Balance 50 ml 380 ml Exam Constitutional: alert, oriented, well developed Psych: nl mood/affect, no complaints Head: atraumatic, normocephalic Eyes: nl conjunctiva, nl lids ENMT: nl external ears & nose, nl nasal mucosa & septum Neck: supple Respiratory: clear to auscultation, normal air movement Cardiovascular: nl pulses, regular rate and rhythm Gastrointestinal: non-tender, soft Musculoskeletal: swelling (mild, R knee, non-TTP, not warm) Extremities: other (AVF on LUE), No edema Neurological: other (able to abduct and elevate b/l UE) Skin: ecchymosis (old, on RUE) Results Result Diagram: 08/26/1644608/26/16446 Medications Medications Current Medications Acetaminophen (Tylenol Tab) 325 mg Q8H PRN PO PAIN AND OR ELEVATED TEMP Last administered on 08/27/16 09:19; Admin Dose 325 MG; Start 08/23/16 at 17:00 Aspirin (Aspirin) 81 mg DAILY PO Last administered on 08/27/16 09:19; Admin Dose 81 MG; Start 08/24/16 at 09:00 Atorvastatin Calcium (Lipitor) 40 mg DAILY@21 PO Last administered on 20:06; Admin Dose 40 MG; Start 08/23/16 at 21:00 Cholecalciferol (Vitamin D) 400 units DAILY PO Last administered on 08/27/16 09:19; Admin Dose 400 UNITS; Start 08/24/16 at 09:00 Clopidogrel Bisulfate (plaVIX) 75 mg DAILY PO Last administered on 08/27/16 09 :19; Admin Dose 75 MG; Start 08/24/16 at 09:00 Diphenoxylate HCl/ Atropine (Lomotil) 1 tab Q12H PRN PO DIARRHEA; Start at 17:00 Docusate Sodium (Colace) 100 mg DAILY PO Last administered on 08/27/16 09:20; Admin Dose 100 MG; Start 08/24/16 at 09:00 Acetaminophen/ Hydrocodone Bitart ([place] (5/325)) 1 tab Q8H PRN PO PAIN Last administered on 08/26/16 20:07; Admin Dose 1 TAB; Start 08/23/16 at 17:00 Loratadine (Claritin) 10 mg DAILY PO Last administered on 08/27/16 09:20; Admin Dose 10 MG; Start 08/24/16 at 09:00 Lorazepam (Ativan) 1 mg Q8H PRN PO ANXIETY Last administered on 08/27/16 03:33 ; Admin Dose 1 MG; Start 08/23/16 at 17:00 Losartan Potassium (Cozaar) 25 mg DAILY PO Last administered on 08/27/16 09:24 ; Admin Dose 25 MG; Start 08/24/16 at 09:00 Multivit/Ca Carb/ B Cmplx/FA/Prenat (Carmina-Boris) 1 tab DAILY PO Last administered on 08/27/16 09:19; Admin Dose 1 TAB; Start 08/24/16 at 09:00 Pantoprazole (Protonix Tab) 40 mg DAILY@06 PO Last administered on 08/26/16 05 :06; Admin Dose 40 MG; Start 08/24/16 at 06:00 Tramadol HCl (Ultram) 50 mg Q8H PRN PO PAIN Last administered on 08/24/16 01: 22; Admin Dose 50 MG; Start 08/23/16 at 17:00 Ondansetron HCl (Zofran Inj) 4 mg Q6H PRN IV NAUSEA AND/OR VOMITING; Start at 17:00 Hydromorphone HCl (Dilaudid) 0.5 mg Q4H PRN IV SEVERE PAIN LEVEL 7-10; Start at 17:00 Docusate Sodium (Colace) 100 mg Q12H PRN PO CONSTIPATION Last administered on 20:06; Admin Dose 100 MG; Start 08/23/16 at 17:00 Bisacodyl (Dulcolax) 5 mg DAILY PRN PO CONSTIPATION Last administered on 20:06; Admin Dose 5 MG; Start 08/23/16 at 17:00 Enoxaparin Sodium (Lovenox) 30 mg DAILY SC Last administered on 08/27/16 09:41 ; Admin Dose 30 MG; Start 08/24/16 at 09:00 Miscellaneous Information Patients own medicat... BID@10,16 XX ; Start 08/24/16 at 10:00 Diphenhydramine HCl 25 mg 25 mg TID PRN PO ITCHING Last administered on 02:16; Admin Dose 25 MG; Start 08/24/16 at 22:30 Ceftriaxone Sodium (Rocephin) 50 ml @ 100 mls/hr Q24H IVPB Last administered on 08/26/16 14:26; Admin Dose 100 MLS/HR; Start 08/25/16 at 14:00 DEIDRE RODRIGUEZ M.D. August 27, 2016 10:33
[2016-08-27] MEDS: traMADol 50 MG TAB PO PRN (15:22)
[2016-08-27] MEDS: CEFTRIAXONE 1 GM/50 ML (PMX) 50 ML IVPB SCH (15:22)
--- NOTE | 2016-08-27 16:06 | RADRPT ---
PROCEDURE: Indium-111 labeled white blood cell scan CLINICAL INDICATION: 76 -year-old patient with fever and leukocytosis. TECHNIQUE: Following the intravenous injection of 0.5 mCi of Indium-111 labeled white blood cells, whole body anterior and posterior planar images were obtained along with spot views of the chest an d abdomen 24 hours post injection. COMPARISON: No prior indium scans. FINDINGS: Very mild diffusely increased activity seen in the lung [place] bilaterally. No definite abnormal areas of increased activity are seen in the study, including visualized portion s of the head and neck, chest, abdomen, pelvis and upper and lower. Physiologic uptake is noted in the liver and spleen. IMPRESSION: 1. No definite abnormal focal areas of increased activity. 2. Very mild diffusely increased uptake in both lungs possibly related to the technical aspects of the white blood cell preparation. RPTAT: HH .Leatha Bedolla MD, Date Time Electronically viewed and signed by .Leatha Bedolla MD, on 08/27/2016 12:45 .L/
[2016-08-27] MEDS: CINACALCET 30 MG TAB PO SCH (17:13)
--- NOTE | 2016-08-27 19:41 | PN ---
Date/Time of Note Date/Time of Note DATE: 08/27/16 TIME: 19:41 Assessment/Plan VTE Prophylaxis VTE Prophylaxis Intervention: other Lines/Catheters IV Catheter Type (from Nrs): Saline Lock Urinary Cath still in place: No Assessment/Plan Chief Complaint/Hosp Course SIRS FEVER ESRD HTN PLAN PER ORDER HD AM per id ck wbc scan if neg home Problems: Subjective 24 Hr Interval Summary Gastrointestinal: no complaints Genitourinary: no complaints Musculoskeletal: no complaints Skin: no complaints Exam/Review of Systems Vital Signs Vitals Vital Signs Date Time Temp Pulse Resp B/P Pulse Ox O2 Delivery O2 Flow Rate FiO2 08/27/16 18:28 2.0 28 08/27/16 07:30 88 18 08/26/16 20:08 99.3 124/59 99 08/23/16 15:00 Room Air Intake and Output 08/26/16 08/26/16 08/27/16 15:00 23:00 07:00 Intake Total 50 ml 380 ml Balance 50 ml 380 ml Exam Respiratory: clear to auscultation Cardiovascular: regular rate and rhythm Gastrointestinal: soft Results Result Diagram: 08/26/16 0447 08/26/16 0447 Medications Medications Current Medications Acetaminophen (Tylenol Tab) 325 mg Q8H PRN PO PAIN AND OR ELEVATED TEMP Last administered on 08/27/16 09:19; Admin Dose 325 MG; Start 08/23/16 at 17:00 Aspirin (Aspirin) 81 mg DAILY PO Last administered on 08/27/16 09:19; Admin Dose 81 MG; Start 08/24/16 at 09:00 Atorvastatin Calcium (Lipitor) 40 mg DAILY@21 PO Last administered on 20:06; Admin Dose 40 MG; Start 08/23/16 at 21:00 Cholecalciferol (Vitamin D) 400 units DAILY PO Last administered on 08/27/16 09:19; Admin Dose 400 UNITS; Start 08/24/16 at 09:00 Clopidogrel Bisulfate (plaVIX) 75 mg DAILY PO Last administered on 08/27/16 09 :19; Admin Dose 75 MG; Start 08/24/16 at 09:00 Diphenoxylate HCl/ Atropine (Lomotil) 1 tab Q12H PRN PO DIARRHEA; Start at 17:00 Docusate Sodium (Colace) 100 mg DAILY PO Last administered on 08/27/16 09:20; Admin Dose 100 MG; Start 08/24/16 at 09:00 Acetaminophen/ Hydrocodone Bitart ([place] (5/325)) 1 tab Q8H PRN PO PAIN Last administered on 08/26/16 20:07; Admin Dose 1 TAB; Start 08/23/16 at 17:00 Loratadine (Claritin) 10 mg DAILY PO Last administered on 08/27/16 09:20; Admin Dose 10 MG; Start 08/24/16 at 09:00 Lorazepam (Ativan) 1 mg Q8H PRN PO ANXIETY Last administered on 08/27/16 03:33 ; Admin Dose 1 MG; Start 08/23/16 at 17:00 Losartan Potassium (Cozaar) 25 mg DAILY PO Last administered on 08/27/16 09:24 ; Admin Dose 25 MG; Start 08/24/16 at 09:00 Multivit/Ca Carb/ B Cmplx/FA/Prenat (Carmina-Boris) 1 tab DAILY PO Last administered on 08/27/16 09:19; Admin Dose 1 TAB; Start 08/24/16 at 09:00 Pantoprazole (Protonix Tab) 40 mg DAILY@06 PO Last administered on 08/26/16 05 :06; Admin Dose 40 MG; Start 08/24/16 at 06:00 Tramadol HCl (Ultram) 50 mg Q8H PRN PO PAIN Last administered on 08/27/16 15: 22; Admin Dose 50 MG; Start 08/23/16 at 17:00 Ondansetron HCl (Zofran Inj) 4 mg Q6H PRN IV NAUSEA AND/OR VOMITING; Start at 17:00 Hydromorphone HCl (Dilaudid) 0.5 mg Q4H PRN IV SEVERE PAIN LEVEL 7-10; Start at 17:00 Docusate Sodium (Colace) 100 mg Q12H PRN PO CONSTIPATION Last administered on 20:06; Admin Dose 100 MG; Start 08/23/16 at 17:00 Bisacodyl (Dulcolax) 5 mg DAILY PRN PO CONSTIPATION Last administered on 20:06; Admin Dose 5 MG; Start 08/23/16 at 17:00 Enoxaparin Sodium (Lovenox) 30 mg DAILY SC Last administered on 08/27/16 09:41 ; Admin Dose 30 MG; Start 08/24/16 at 09:00 Miscellaneous Information Patients own medicat... BID@10,16 XX ; Start 08/24/16 at 10:00 Diphenhydramine HCl 25 mg 25 mg TID PRN PO ITCHING Last administered on 02:16; Admin Dose 25 MG; Start 08/24/16 at 22:30 Ceftriaxone Sodium (Rocephin) 50 ml @ 100 mls/hr Q24H IVPB Last administered on 08/27/16 15:22; Admin Dose 100 MLS/HR; Start 08/25/16 at 14:00 BELKIS INTERIANO MD August 27, 2016 19:41
--- NOTE | 2016-08-27 19:42 | PDOCDIS ---
Discharge Instructions CONDITION Patient Condition: Stable HOME CARE INSTRUCTIONS: Special Diet: Renal Diet ACTIVITY: Activity Restrictions: No Restrictions FOLLOW UP/APPOINTMENTS Appointments f/u dr interiano 2 wks BELKIS INTERIANO MD August 27, 2016 19:42
[2016-08-27] MEDS ORDERED: SULF1TAB31 PO (19:45)
[2016-08-27] MEDS: BISACODYL (EC) 5 MG TAB PO PRN (20:34)
[2016-08-27] MEDS: ATORVASTATIN 40 MG TAB PO SCH (20:34)
[2016-08-28] MEDS: HYDROCODONE/APAP (5/325) TAB PO PRN (01:44)
[2016-08-28] MEDS: ZOLPIDEM 5 MG TAB PO PRN (01:45)
[2016-08-28] MEDS: PANTOPRAZOLE (EC) 40 MG TAB PO SCH (05:43)
[2016-08-28 07:59] VITALS: BP 139/70; RESP 19
[2016-08-28] MEDS: CHOLECALCIFEROL 400 UNITS TAB PO SCH (08:22)
[2016-08-28] MEDS: CLOPIDOGREL 75 MG TAB PO SCH (08:22)
[2016-08-28] MEDS: SEVELAMER CARBONATE 0.8 GM PKT PO SCH ×3 (08:22→18:59)
[2016-08-28] MEDS: LOSARTAN 25 MG TAB PO SCH (08:23)
[2016-08-28] MEDS: ASPIRIN 81 MG TAB PO SCH (08:23)
[2016-08-28] MEDS: MULTIVIT/CA CARB/B CMPLX/FA TAB PO SCH (08:23)
[2016-08-28] MEDS: DOCUSATE SODIUM 100 MG CAP PO SCH (08:23)
[2016-08-28] MEDS: LORATADINE 10 MG TAB PO SCH (08:23)
[2016-08-28] MEDS: ENOXAPARIN 30 MG/0.3 ML SYG SC SCH (08:24)
[2016-08-28] MEDS: CEFTRIAXONE 1 GM/50 ML (PMX) 50 ML IVPB SCH (14:19)
[2016-08-28] MEDS: ACETAMINOPHEN 325 MG TAB PO PRN (16:16)
[2016-08-28] MEDS: CINACALCET 30 MG TAB PO SCH (18:59)
--- NOTE | 2016-08-28 19:21 | PN ---
Date/Time of Note Date/Time of Note DATE: 08/28/16 TIME: 19:21 Assessment/Plan VTE Prophylaxis VTE Prophylaxis Intervention: other Lines/Catheters [facility] Saline Lock Urinary Cath still in place: No Assessment/Plan Chief Complaint/Hosp Course SIRS FEVER ESRD HTN PLAN PER ORDER HD AM per id wbc scan neg Problems: Subjective 24 Hr Interval Summary Constitutional: no complaints Cardiovascular: no complaints Gastrointestinal: no complaints Exam/Review of Systems Vital Signs Vitals Vital Signs Date Time Temp Pulse Resp B/P Pulse Ox O2 Delivery O2 Flow Rate FiO2 08/28/16 07:59 98.7 91 19 139/70 99 08/28/16 05:48 2.0 08/27/16 18:28 28 Intake and Output 08/27/16 08/27/16 08/28/16 15:00 23:00 07:00 Intake Total 740 ml 450 ml Output Total 2500 ml Balance -1760 ml 450 ml Exam Neck: supple Respiratory: clear to auscultation Cardiovascular: regular rate and rhythm Gastrointestinal: soft Musculoskeletal: nl extremities to inspection Results Result Diagram: 08/26/16 0447 08/26/16 0447 Medications Medications Current Medications Acetaminophen (Tylenol Tab) 325 mg Q8H PRN PO PAIN AND OR ELEVATED TEMP Last administered on 08/28/16 16:16; Admin Dose 325 MG; Start 08/23/16 at 17:00 Aspirin (Aspirin) 81 mg DAILY PO Last administered on 08/28/16 08:23; Admin Dose 81 MG; Start 08/24/16 at 09:00 Atorvastatin Calcium (Lipitor) 40 mg DAILY@21 PO Last administered on 20:34; Admin Dose 40 MG; Start 08/23/16 at 21:00 Cholecalciferol (Vitamin D) 400 units DAILY PO Last administered on 08/28/16 08 :22; Admin Dose 400 UNITS; Start 08/24/16 at 09:00 Clopidogrel Bisulfate (plaVIX) 75 mg DAILY PO Last administered on 08/28/16 08: 22; Admin Dose 75 MG; Start 08/24/16 at 09:00 Diphenoxylate HCl/ Atropine (Lomotil) 1 tab Q12H PRN PO DIARRHEA; Start at 17:00 Docusate Sodium (Colace) 100 mg DAILY PO Last administered on 08/28/16 08:23; Admin Dose 100 MG; Start 08/24/16 at 09:00 Acetaminophen/ Hydrocodone Bitart ([place] (5/325)) 1 tab Q8H PRN PO PAIN Last administered on 08/28/16 01:44; Admin Dose 1 TAB; Start 08/23/16 at 17:00 Loratadine (Claritin) 10 mg DAILY PO Last administered on 08/28/16 08:23; Admin Dose 10 MG; Start 08/24/16 at 09:00 Lorazepam (Ativan) 1 mg Q8H PRN PO ANXIETY Last administered on 08/27/16 03:33 ; Admin Dose 1 MG; Start 08/23/16 at 17:00 Losartan Potassium (Cozaar) 25 mg DAILY PO Last administered on 08/28/16 08:23 ; Admin Dose 25 MG; Start 08/24/16 at 09:00 Multivit/Ca Carb/ B Cmplx/FA/Prenat (Carmina-Boris) 1 tab DAILY PO Last administered on 08/28/16 08:23; Admin Dose 1 TAB; Start 08/24/16 at 09:00 Pantoprazole (Protonix Tab) 40 mg DAILY@06 PO Last administered on 08/28/16 05: 43; Admin Dose 40 MG; Start 08/24/16 at 06:00 Tramadol HCl (Ultram) 50 mg Q8H PRN PO PAIN Last administered on 08/27/16 15: 22; Admin Dose 50 MG; Start 08/23/16 at 17:00 Ondansetron HCl (Zofran Inj) 4 mg Q6H PRN IV NAUSEA AND/OR VOMITING; Start at 17:00 Hydromorphone HCl (Dilaudid) 0.5 mg Q4H PRN IV SEVERE PAIN LEVEL 7-10; Start at 17:00 Docusate Sodium (Colace) 100 mg Q12H PRN PO CONSTIPATION Last administered on 20:06; Admin Dose 100 MG; Start 08/23/16 at 17:00 Bisacodyl (Dulcolax) 5 mg DAILY PRN PO CONSTIPATION Last administered on 20:34; Admin Dose 5 MG; Start 08/23/16 at 17:00 Enoxaparin Sodium (Lovenox) 30 mg DAILY SC Last administered on 08/28/16 08:24 ; Admin Dose 30 MG; Start 08/24/16 at 09:00 Miscellaneous Information Patients own medicat... BID@10,16 XX ; Start 08/24/16 at 10:00 Diphenhydramine HCl 25 mg 25 mg TID PRN PO ITCHING Last administered on 20:34; Admin Dose 25 MG; Start 08/24/16 at 22:30 Ceftriaxone Sodium (Rocephin) 50 ml @ 100 mls/hr Q24H IVPB Last administered on 08/28/16 14:19; Admin Dose 100 MLS/HR; Start 08/25/16 at 14:00 BELKIS INTERIANO MD Aug 28, 2016 19:21
[2016-08-28 19:50] VITALS: BP 135/65; RESP 16
[2016-08-28 19:53] LABS: ANA SCREEN POSITIVE (NEGATIVE)
--- NOTE | 2016-08-28 20:31 | CONS ---
Date/Time of Note Date/Time of Note DATE: 08/28/16 TIME: 20:22 Assessment/Plan Assessment/Plan Chief Complaint/Hosp Course - s/p low grade temp on admission, resolving. WBC tagged scan negative - possible vasculitis, as AJAY screen positive - probable contamination of the urine culture with mixed gram positive bacteria , urinalysis was unremarkable - RUE pain after phlebotomy, possible complex regional pain - Hx of HTN - Hx of hyperlipidemia - ESRD on HD - diabetes mellitus - osteoarthritis, DJD - s/p hysterectomy - history of CAD/KS recommendations - OK to d/c antibiotic; I recommended possible referral to a faculty i on call medical assistant ( AJAY screen positive) management d/w Pt, her daughter Problems: Consultation Date/Type/Reason Admit Date/Time August 25, 2016 at 10:55 Initial Consult Date 08/25/16 Type of Consultation: ID Referring Provider: BELKIS INTERIANO MD 24 HR Interval Summary Constitutional: other (+warmth) Detailed Summary Eyes: no complaints ENT: no complaints Respiratory: no complaints Cardiovascular: no complaints Gastrointestinal: no complaints Genitourinary: other (HD) Musculoskeletal: bone/joint pain (pain in b/l shoulders and RUE, painful L knee ) Skin: no complaints Neurologic: no complaints Exam/Review of Systems Vital Signs Vitals Vital Signs Date Time Temp Pulse Resp B/P Pulse Ox O2 Delivery O2 Flow Rate FiO2 08/28/16 19:50 98.4 86 16 135/65 98 08/28/16 05:48 2.0 08/27/16 18:28 28 Intake and Output 08/27/16 08/27/16 08/28/16 15:00 23:00 07:00 Intake Total 740 ml 450 ml Output Total 2500 ml Balance -1760 ml 450 ml Exam Constitutional: alert, oriented Psych: nl mood/affect, no complaints Head: atraumatic, normocephalic Eyes: nl conjunctiva, nl lids ENMT: nl external ears & nose, nl nasal mucosa & septum Neck: supple Musculoskeletal: joint tenderness (RUE, ), No muscle weakness, No range of motion, No swelling Extremities: No edema, No pitting pedal edema Neurological: FILM REPLACEMENT ORDERER II-XII intact, nl mental status, nl speech Skin: nl turgor Results Result Diagram: 08/26/1644608/26/16446 Medications Medications Current Medications Acetaminophen (Tylenol Tab) 325 mg Q8H PRN PO PAIN AND OR ELEVATED TEMP Last administered on 08/28/16 16:16; Admin Dose 325 MG; Start 08/23/16 at 17:00 Aspirin (Aspirin) 81 mg DAILY PO Last administered on 08/28/16 08:23; Admin Dose 81 MG; Start 08/24/16 at 09:00 Atorvastatin Calcium (Lipitor) 40 mg DAILY@21 PO Last administered on 20:34; Admin Dose 40 MG; Start 08/23/16 at 21:00 Cholecalciferol (Vitamin D) 400 units DAILY PO Last administered on 08/28/16 08 :22; Admin Dose 400 UNITS; Start 08/24/16 at 09:00 Clopidogrel Bisulfate (plaVIX) 75 mg DAILY PO Last administered on 08/28/16 08: 22; Admin Dose 75 MG; Start 08/24/16 at 09:00 Diphenoxylate HCl/ Atropine (Lomotil) 1 tab Q12H PRN PO DIARRHEA; Start at 17:00 Docusate Sodium (Colace) 100 mg DAILY PO Last administered on 08/28/16 08:23; Admin Dose 100 MG; Start 08/24/16 at 09:00 Acetaminophen/ Hydrocodone Bitart ([place] (5/325)) 1 tab Q8H PRN PO PAIN Last administered on 08/28/16 01:44; Admin Dose 1 TAB; Start 08/23/16 at 17:00 Loratadine (Claritin) 10 mg DAILY PO Last administered on 08/28/16 08:23; Admin Dose 10 MG; Start 08/24/16 at 09:00 Lorazepam (Ativan) 1 mg Q8H PRN PO ANXIETY Last administered on 08/27/16 03:33 ; Admin Dose 1 MG; Start 08/23/16 at 17:00 Losartan Potassium (Cozaar) 25 mg DAILY PO Last administered on 08/28/16 08:23 ; Admin Dose 25 MG; Start 08/24/16 at 09:00 Multivit/Ca Carb/ B Cmplx/FA/Prenat (Carmina-Boris) 1 tab DAILY PO Last administered on 08/28/16 08:23; Admin Dose 1 TAB; Start 08/24/16 at 09:00 Pantoprazole (Protonix Tab) 40 mg DAILY@06 PO Last administered on 08/28/16 05: 43; Admin Dose 40 MG; Start 08/24/16 at 06:00 Tramadol HCl (Ultram) 50 mg Q8H PRN PO PAIN Last administered on 08/27/16 15: 22; Admin Dose 50 MG; Start 08/23/16 at 17:00 Ondansetron HCl (Zofran Inj) 4 mg Q6H PRN IV NAUSEA AND/OR VOMITING; Start at 17:00 Hydromorphone HCl (Dilaudid) 0.5 mg Q4H PRN IV SEVERE PAIN LEVEL 7-10; Start at 17:00 Docusate Sodium (Colace) 100 mg Q12H PRN PO CONSTIPATION Last administered on 20:06; Admin Dose 100 MG; Start 08/23/16 at 17:00 Bisacodyl (Dulcolax) 5 mg DAILY PRN PO CONSTIPATION Last administered on 20:34; Admin Dose 5 MG; Start 08/23/16 at 17:00 Enoxaparin Sodium (Lovenox) 30 mg DAILY SC Last administered on 08/28/16 08:24 ; Admin Dose 30 MG; Start 08/24/16 at 09:00 Miscellaneous Information Patients own medicat... BID@10,16 XX ; Start 08/24/16 at 10:00 Diphenhydramine HCl 25 mg 25 mg TID PRN PO ITCHING Last administered on 20:34; Admin Dose 25 MG; Start 08/24/16 at 22:30 Ceftriaxone Sodium (Rocephin) 50 ml @ 100 mls/hr Q24H IVPB Last administered on 08/28/16 14:19; Admin Dose 100 MLS/HR; Start 08/25/16 at 14:00 DEIDRE RODRIGUEZ M.D. Aug 28, 2016 20:31
--- NOTE | 2016-08-29 16:58 | QN ---
Documentation Comment [id number] BELKIS INTERIANO MD Aug 29, 2016 16:58
--- NOTE | 2016-08-29 18:00 | DS ---
DATE OF ADMISSION: 08/25/2016 DATE OF DISCHARGE: 08/28/2016 HOSPITAL COURSE: The patient is a 76-year-old female with history of ESRD, hypertension, history of CAD and DE. Presented with a little bit of fever with questionable UTI. Ongoing shortness of breath. The patient was seen in infectious disease consultation. Patient's procalcitonin 0.47 and the patient' s potassium level was 7.1 and sodium 127. The patient underwent hemodialysis. The patient had a WBC scan done since the patient has ongoing low-grade temperature. Shows no definite abnormality. There is mild diffuse increased uptake in both lungs, possibly related to the aspect of white blood cell preparation and the patient was cleared by it systems analyst consultant to be discharged home. The patient's SARY was positive. The patient will have further workup as an outpatient since the patient's fever has subsided. The patient has + sary DISCHARGE DIAGNOSES: 1. Systemic inflammatory response syndrome, subjective fever, questionable urinary tract infection, increased activity. 2. The patient has hypertension. 3. End-stage renal disease. 4. Anemia. 5. Dyslipidemia. 6. History of myocardial infarction. 7. History of pneumonia. 8. History of congestive heart failure. DISCHARGE MEDICATIONS: To continue on . 2. Tylenol. 3. Aspirin. 4. Lipitor. 5. Vitamin D. 6. Sensipar. 7. Plavix. 8. Aranesp. 9. Lomotil. 10. Docusate sodium. 11. Hydrocodone. 12. Ibuprofen 13. Loratadine. 14. Megace. 15. Multivitamins. 16. Tylenol. DIET: Renal diet. DISPOSITION: Patient is stable at the time of discharge. DISCHARGE INSTRUCTIONS: The patient is to follow up as an outpatient. Further workup as an outpatient. Dictated By: BELKIS INTERIANO MD BS/NTS Conf#: [id number] DID#: [id number] MTDD
== END 2016-08-28 21:10 | disposition home or self-care (01) | DRG 689 ==
LOC: FTE 08:35 → MS2 12:44 → OBSVTOIN 08-25 10:55 → MS2 08-25 19:00
PROVIDERS: ADMIT Internal Medicine Nephrology; ATTEND Internal Medicine Nephrology
DX: N39.0 Urinary tract infection, site not specified (principal); N18.6 End stage renal disease; I13.2 Hypertensive heart and chronic kidney disease with heart failure and with stage 5 chronic kidney disease, or end stage renal disease; E11.9 Type 2 diabetes mellitus without complications; Z79.02 Long term (current) use of antithrombotics/antiplatelets; I77.6 Arteritis, unspecified; I50.9 Heart failure, unspecified; Z99.2 Dependence on renal dialysis
CPT/HCPCS: 71010; 71250; 74176; 78806; 80048; 80053; 81001; 83605; 83615; 83625; 84145; 84484; 85025; 85610; 85651; 85730; 86038; 86140; 87040; 87081; 87086; 90935; 93005; 99217; A9570; G0378; J0696; J1650

== ENCOUNTER 2016-09-23 20:59 | Inpatient (IN) | payer MEDICARE, BC ==
[~2016-09-23] VITALS: Ht 157.5 cm; Wt 73.0 kg
[~2016-09-23 20:59] MED LIST changes: +DIPH1TAB PO; +HYDR-906 PO; +IBUP-1542 PO; +LORA10TA3 PO; +LORA1TAB PO; +SULF1TAB31 PO
[2016-09-24] VITALS (14 sets, daily range): BP systolic 125–163; BP diastolic 63–85; PULSE 66–78; RESP 18–19; Ht 157.5 cm; Wt 73.0 kg
[2016-09-24 00:54] LABS: ADD SCAN DIFF NO
[2016-09-24 00:57] LABS: BASOPHILS % 0.2 % (0.0-2.0); EOSINOPHILS # 0.5 10^3/ul (0.0-0.5); EOSINOPHILS % 3.5 % (0.0-7.0); HEMATOCRIT 30.5 % (37.0-47.0); HEMOGLOBIN 10.3 g/dl (12.0-16.0); LYMPHOCYTES # 3.2 10^3/ul (0.8-2.9); LYMPHOCYTES % 24.9 % (15.0-51.0); MEAN CORPUSCULAR HEMOGLOBIN 31.5 pg (29.0-33.0); MEAN CORPUSCULAR HGB CONC 33.8 g/dl (32.0-37.0); MEAN CORPUSCULAR VOLUME 93.3 fl (82.0-101.0); MONOCYTE # 1.1 10^3/ul (0.3-0.9); MONOCYTES % 8.4 % (0.0-11.0); NEUTROPHIL # 8.1 10^3/ul (1.6-7.5); NEUTROPHILS % 62.6 % (39.0-77.0); PLATELET COUNT 215 10^3/UL (140-415); RED BLOOD COUNT 3.27 10^6/ul (4.20-5.40); RED CELL DISTRIBUTION WIDTH 12.4 % (11.5-14.5)
[2016-09-24 01:00] LABS: INR 1.02; PROTIME 13.4 Sec (12.2-14.2)
[2016-09-24 01:01] LABS: PARTIAL THROMBOPLASTIN TIME 27.1 Sec (25.0-35.0)
[2016-09-24 01:17] LABS: ALANINE AMINOTRANSFERASE 19 IU/L (13-69); ALBUMIN 4.6 g/dl (3.3-4.9); ALBUMIN/GLOBULIN RATIO 1.58; ALKALINE PHOSPHATASE 111 IU/L (42-121); ANION GAP 28 (8-16); ASPARTATE AMINO TRANSFERASE 22 IU/L (15-46); CARBON DIOXIDE 21 mmol/L (21-31); CHLORIDE 98 mmol/L (97-110); GLUCOSE 92 mg/dl (70-220); SODIUM 140 mmol/L (135-144); TOTAL PROTEIN 7.5 g/dl (6.1-8.1)
--- NOTE | 2016-09-24 01:21 | RADRPT ---
PROCEDURE: XR Chest. CLINICAL INDICATION: Chest pain. TECHNIQUE: Single frontal view of the chest. COMPARISON: Single frontal view of the chest dated 02/05/2015. FINDINGS: Cardiomegaly and atherosclerotic calcifications in the thoracic aorta. Hypoinflated lungs accentuat e pulmonary vascular markings. Mild pulmonary vascular congestion. The lungs are otherwise clear. No signs of pleural fluid or pneumothorax are seen. The osseous structures and soft tissues are unre markable. IMPRESSION: Mild pulmonary vascular congestion. RPTAT: [facility] Physician Maria Del Rosario Date Time Electronically viewed and signed by Physician Maria Del Rosario on 09/24/2016 01:21 RS/
[2016-09-24 01:29] LABS: B-TYPE NATRIURETIC PEPTIDE 17800 PG/ML (0-125)
[2016-09-24 01:31] LABS: BLOOD UREA NITROGEN 116 mg/dl (7-20); CREATININE 15.71 mg/dl (0.44-1.00); TROPONIN-I < 0.012 ng/ml (0.00-0.12)
[2016-09-24] MEDS ORDERED: ACETAMINOPHEN 325 MG TAB ONE (01:37)
[2016-09-24 01:43] LABS: POTASSIUM 7.2 mmol/L (3.5-5.1)
[2016-09-24] MEDS ORDERED: NA POLYST SULFON 15 GM/60 ML BTL PO ONE (02:00)
[2016-09-24] MEDS ORDERED: CALCIUM GLUCONATE 10% 1 GM in SOD CHLORIDE 0.9% 100 ML IVPB ONE (02:00)
--- NOTE | 2016-09-24 02:35 | ERA ---
ER Documentation Chief Complaint Date/Time DATE: 09/24/16 TIME: 02:33 Chief Complaint dialysis pt dialyzed yesterday, dizziness HPI This is a 76-year-old female with history of end-stage renal disease who comes in with complaints of dizziness since yesterday. She feels like she is lightheaded and going to pass out. Denies room spinning. Denies chest pain. Denies palpitations. Denies any other current complaints. Patient is Thursday dialysis ROS All systems reviewed and are negative except as per history of present illness. Medications Home Meds Active Scripts Sulfamethoxazole/Trimethoprim* (Bactrim Ds* Tablet) 1 Each Tablet, 1 TAB PO DAILY for 7 Days, TAB Prov:BELKIS INTERIANO MD 08/27/16 Acetaminophen* (Tylenol*) 325 Mg Tablet, 2 TAB PO Q8 Y for PAIN AND OR ELEVATED TEMP, #20 TAB Prov:GELY WHITE MD 08/05/16 Acetaminophen* (Tylenol*) 325 Mg Tablet, 2 TAB PO Q8 Y for PAIN AND OR ELEVATED TEMP, #20 TAB Prov:GELY WHITE MD 08/05/16 Clopidogrel Bisulfate (Clopidogrel) 75 Mg Tab, 75 MG PO DAILY for 30 Days Prov:TOAN HECK 02/07/15 [Carvedilol] 6.25 MG TAB No Conflict Check, 12.5 MG PO BID for 30 Days, TAB Prov:TOAN HECK 02/07/15 Atorvastatin Calcium* (Atorvastatin Calcium*) 20 Mg Tab, 40 MG PO HS for 30 Days Prov:TOAN HECK 02/07/15 Tramadol HCl (Tramadol HCl) 50 Mg Tab, 50 MG PO Q8 Y for PAIN, #10 TAB Prov:ROSLYN OLIVARES MD 01/10/15 Reported Medications Loratadine* (Loratadine*) 10 Mg Tablet, 10 MG PO DAILY for ITCHING, #30 TAB 08/23/16 Hydrocodone/Acetaminophen (Emblem 5-325 Tablet) 1 Each Tablet, 1 EACH PO Q8 for PAIN, TAB 08/23/16 Lorazepam* (Lorazepam*) 1 Mg Tablet, 1 MG PO Q8 Y for ANXIETY, #60 TAB 08/23/16 Diphenoxylate HCl/Atropine (Lomotil 2.5-0.025 mg Tablet) 1 Each Tablet, 1 TAB PO Q12 Y for DIARRHEA, TAB 08/23/16 Ibuprofen* (Ibuprofen*) 600 Mg Tablet, 600 MG PO Q12, TAB 08/23/16 Cinacalcet* (Sensipar*) 30 Mg Tab, 30 MG PO DAILY, TAB 01/10/15 Docusate Sodium* (Docusate Sodium*) 100 Mg Capsule, 100 MG PO DAILY, CAP 01/10/15 Cholecalciferol* (Vitamin D*) 400 Unit Tablet, 400 UNIT PO DAILY, TAB 01/10/15 Megestrol Acetate* (Megestrol Acetate*) 40 Mg Tablet, 40 MG PO BID, TAB 01/10/15 Zolpidem Tartrate* (Ambien*) 5 Mg Tablet, 5 MG PO HS MAY REPEAT X 1 Y for INSOMNIA, TAB 01/10/15 Amino Acids/Protein Hydrolys (Liquacel 100 Liquid Packet) 30 Ml Liquid.pkt, 30 ML PO Q SCHED DIALYSIS TRM 01/10/15 Darbepoetin Sulaiman In Polysorbat (Aranesp) 25 Mcg/Ml Vial, 25 MCG IV WEEKLY ON 1ST TRMT, VIAL 01/10/15 Iron Sucrose* (Venofer*) 100 Mg/5 Ml Vial, 50 MG IV WEEKLY ON 2ND TRMT, VIAL 01/10/15 Paricalcitol* (Zemplar*) 2 Mcg/Ml Vial, 2 MCG IV 1ST, 2ND,3RD TRMT, VIAL 01/10/15 Multivit/Ca Carb/B Cmplx/Fa* (Carmina-Boris*) 1 Tab Tab, 1 TAB PO DAILY, TAB 01/10/15 Sevelamer Carbonate* (Renvela*) 800 Mg Tablet, 800 MG PO TID 07/28/12 Pantoprazole* (Protonix*) 40 Mg Tablet.dr, 40 MG PO DAILY 07/28/12 Losartan Potassium* (Cozaar*) 25 Mg Tablet, 25 MG PO DAILY 07/28/12 Aspirin* (Aspirin* Chew) 81 Mg Tab.chew, 81 MG PO DAILY 07/28/12 Allergies Allergies: Coded Allergies: vancomycin (Verified Allergy, Unknown, 08/05/16) PMhx/Soc History of Surgery: Yes (junie, appy, hyster) Anesthesia Reaction: No Hx Neurological Disorder: No Hx Respiratory Disorders: No Hx Cardiac Disorders: Yes (HTN) Hx Psychiatric Problems: No Hx Miscellaneous Medical Probl: Yes (ESRD, arthritis) Hx Alcohol Use: No Hx Substance Use: No Hx Tobacco Use: No Smoking Status: Never smoker Physical Exam Vitals Vital Signs Date Time Temp Pulse Resp B/P Pulse Ox O2 Delivery O2 Flow Rate FiO2 09/24/16 02:05 58 18 138/61 100 Room Air 09/24/16 00:05 60 18 134/64 100 Room Air 09/23/16 21:04 98.2 63 20 125/61 100 Physical Exam Const: [] Head: Atraumatic Eyes: Normal Conjunctiva ENT: Normal External Ears, Nose and Mouth. Neck: Full range of motion..~ No meningismus. Resp: Clear to auscultation bilaterally Cardio: Regular rate and rhythm, no murmurs Abd: Soft, non tender, non distended. Normal bowel sounds Skin: No petechiae or rashes Back: No midline or flank tenderness Ext: No cyanosis, or edema Neur: Awake and alert Psych: Normal Mood and Affect Result Diagram: 09/24/16 0005 09/24/16 0005 Results 24 hrs Laboratory Tests Test 09/24/16 00:05 White Blood Count 13.010^3/ul Red Blood Count 3.2710^6/ul Hemoglobin 10.3g/dl Hematocrit 30.5% Mean Corpuscular Volume 93.3fl Mean Corpuscular Hemoglobin 31.5pg Mean Corpuscular Hemoglobin Concent 33.8g/dl Red Cell Distribution Width 12.4% Platelet Count 49389^3/UL Mean Platelet Volume 11.0fl Neutrophils % 62.6% Lymphocytes % 24.9% Monocytes % 8.4% Eosinophils % 3.5% Basophils % 0.2% Nucleated Red Blood Cells % 0.0/100WBC Neutrophils # 8.110^3/ul Lymphocytes # 3.210^3/ul Monocytes # 1.110^3/ul Eosinophils # 0.510^3/ul Basophils # 0.010^3/ul Nucleated Red Blood Cells # 0.010^3/ul Prothrombin Time 13.4Sec Prothrombin Time Ratio 1.0 INR International Normalized Ratio 1.02 Activated Partial Thromboplast Time 27.1Sec Sodium Level 140mmol/L Potassium Level 7.2mmol/L Chloride Level 98mmol/L Carbon Dioxide Level 21mmol/L Anion Gap 28 Blood Urea Nitrogen 116mg/dl Creatinine 15.71mg/dl Glucose Level 92mg/dl Calcium Level 8.0mg/dl Total Bilirubin 0.0mg/dl Direct Bilirubin 0.00mg/dl Indirect Bilirubin 0.0mg/dl Aspartate Amino Transf (AST/SGOT) 22IU/L Alanine Aminotransferase (ALT/SGPT) 19IU/L Alkaline Phosphatase 111IU/L Troponin I < 0.012ng/ml B-Type Natriuretic Peptide 70585JF/ML Total Protein 7.5g/dl Albumin 4.6g/dl Globulin 2.90g/dl Albumin/Globulin Ratio 1.58 Current Medications Medications (Trade) Dose Ordered Sig/Terra Route PRN Reason Start Time Stop Time Status Last Admin Dose Admin Acetaminophen (Tylenol Tab) 325 mg STK-MED ONCE .ROUTE 09/24/16 01:37 09/24/16 01:38 DC Sodium Polystyrene Sulfonate 60 gm 60 gm ONCE ONCE PO 09/24/16 02:00 09/24/16 02:01 DC Calcium Gluconate/ Sodium Chloride (Ca Gluc/NS) 110 ml @ 110 mls/hr ONCE ONCE IVPB 09/24/16 02:00 09/24/16 02:59 Procedures/MDM EKG: Rate/Rhythm: Normal Sinus Rhythm QRS, ST, T-waves: No changes consistent w/ acute ischemia Impression: No evidence of ischemia or arrhythmia Chest X-ray 1V Interpreted by me: Soft Tissue: No acute abnormalities Bones: No acute abnormalities Mediastinum/Cardiac Silhouette/Lungs: No acute abnormalities Medical decision-makin-year-old female comes in with severe hyperkalemia. Patient will be admitted to telemetry. Treated with calcium and Kayexalate. Dr. Interiano notified. Departure Diagnosis: Primary Impression: Hyperkalemia Condition: Serious LETI KU Sep 24, 2016 02:35
[2016-09-24 06:28] LABS: CK-MB 0.38 ng/ml (0.0-2.4)
[2016-09-24 06:39] LABS: TROPONIN-I < 0.012 ng/ml (0.00-0.12)
[2016-09-24 07:50] LABS: CREATINE KINASE 164 IU/L (23-200)
[2016-09-24] MEDS ORDERED: traMADol 50 MG TAB PO PRN (12:30)
[2016-09-24] MEDS ORDERED: LORAZEPAM 1 MG TAB PO PRN (12:30)
[2016-09-24] MEDS ORDERED: DIPHENOXYLATE/ATROPINE TAB PO PRN (12:30)
[2016-09-24] MEDS ORDERED: ACETAMINOPHEN 325 MG TAB PO PRN ×2 (12:30)
[2016-09-24] MEDS ORDERED: ZOLPIDEM 5 MG TAB PO PRN (12:30)
[2016-09-24 14:34] LABS: CREATINE KINASE 159 IU/L (23-200)
[2016-09-24 14:48] LABS: CK-MB 0.57 ng/ml (0.0-2.4)
[2016-09-24] MEDS: LORATADINE 10 MG TAB PO SCH (14:48)
[2016-09-24] MEDS: MULTIVIT/CA CARB/B CMPLX/FA TAB PO SCH (14:48)
[2016-09-24] MEDS: ASPIRIN 81 MG TAB PO SCH (14:48)
[2016-09-24] MEDS: PANTOPRAZOLE (EC) 40 MG TAB PO SCH (14:49)
[2016-09-24 14:58] LABS: TROPONIN-I < 0.012 ng/ml (0.00-0.12)
[2016-09-24] MEDS: CHOLECALCIFEROL 400 UNITS TAB PO SCH (15:02)
[2016-09-24] MEDS: CINACALCET 30 MG TAB PO SCH (15:02)
[2016-09-24 15:07] LABS: CREATININE 9.77 mg/dl (0.44-1.00); POTASSIUM 4.4 mmol/L (3.5-5.1)
[2016-09-24] MEDS: LOSARTAN 25 MG TAB PO SCH (16:05)
[2016-09-24] MEDS: SEVELAMER CARBONATE 0.8 GM PKT PO SCH (17:30)
[2016-09-24] MEDS: ATORVASTATIN 40 MG TAB PO SCH (20:58)
[2016-09-24] MEDS ORDERED: IBUPROFEN 600 MG TAB PO PRN (21:00)
[2016-09-24] MEDS ORDERED: IBUPROFEN 600 MG TAB PO SCH (21:00)
[2016-09-24] MEDS ORDERED: DIPHENHYDRAMINE 25 MG CAP PO PRN (23:30)
--- NOTE | 2016-09-24 23:32 | QN ---
Documentation Comment SEE BELKIS BABCOCK MD Sep 24, 2016 23:32
[2016-09-25] VITALS (12 sets, daily range): BP systolic 114–154; BP diastolic 57–76; PULSE 68–82; RESP 18–19
[2016-09-25] MEDS: HYDROCODONE/APAP (5/325) TAB PO PRN ×2 (00:11→11:49)
[2016-09-25 01:55] LABS: CREATINE KINASE 139 IU/L (23-200)
[2016-09-25 02:19] LABS: TROPONIN-I < 0.012 ng/ml (0.00-0.12)
[2016-09-25] MEDS: PANTOPRAZOLE (EC) 40 MG TAB PO SCH (05:37)
[2016-09-25 07:59] LABS: CREATINE KINASE 118 IU/L (23-200)
[2016-09-25 08:08] LABS: CHOL/HDL RATIO 3.9 RATIO; CK-MB 0.36 ng/ml (0.0-2.4)
[2016-09-25 08:13] LABS: TROPONIN-I < 0.012 ng/ml (0.00-0.12)
[2016-09-25] MEDS: CINACALCET 30 MG TAB PO SCH (08:38)
[2016-09-25] MEDS: LORATADINE 10 MG TAB PO SCH (08:38)
[2016-09-25] MEDS: ASPIRIN 81 MG TAB PO SCH (08:38)
[2016-09-25] MEDS: SEVELAMER CARBONATE 0.8 GM PKT PO SCH ×3 (08:38→17:35)
[2016-09-25] MEDS: CLOPIDOGREL 75 MG TAB PO SCH (08:38)
[2016-09-25] MEDS: MULTIVIT/CA CARB/B CMPLX/FA TAB PO SCH (08:38)
[2016-09-25] MEDS: DOCUSATE SODIUM 100 MG CAP PO SCH (08:38)
[2016-09-25] MEDS: CHOLECALCIFEROL 400 UNITS TAB PO SCH (08:38)
[2016-09-25] MEDS: LOSARTAN 25 MG TAB PO SCH (08:43)
--- NOTE | 2016-09-25 10:36 | RADRPT ---
Vent Rate: 75 bpm RR Interval: 0 msec IN Interval: 150 msec QRS Duration: 76 msec QT Interval: 424 msec QTC Interval: 473 msec P-R-T [place]: 49 - -11 - 8 degrees Normal sinus rhythm Normal ECG Electronically Signed By: Donald Greer [id number]
--- NOTE | 2016-09-25 10:38 | RADRPT ---
Vent Rate: 71 bpm RR Interval: 0 msec ND Interval: 130 msec QRS Duration: 76 msec QT Interval: 460 msec QTC Interval: 499 msec P-R-T [place]: 50 - -13 - 24 degrees Normal sinus rhythm Prolonged QT Abnormal ECG Electronically Signed By: Donald Greer [id number]
[2016-09-25 12:54] LABS: CREATINE KINASE 114 IU/L (23-200)
[2016-09-25 13:06] LABS: CK-MB 0.27 ng/ml (0.0-2.4)
[2016-09-25 13:08] LABS: TROPONIN-I < 0.012 ng/ml (0.00-0.12)
--- NOTE | 2016-09-25 19:19 | CONS ---
Date/Time of Note Date/Time of Note DATE: 09/25/16 TIME: 19:14 Assessment/Plan Assessment/Plan Chief Complaint/Hosp Course IMP: 1.abnl ecg-negatve 2.Weakness-improved after HD and correction of high K 3.Dizziness-improved after HD 4.ESRD on HD 5.Hyperkalemia-improved after HD 6. anemia 7.HL Recc: -Tele -serial ecg's -Follow K closely -s/p HD with improvement in K -Continue coreg/losartan -Continue asa/plavix -Continue statin Problems: Consultation Date/Type/Reason Admit Date/Time Sep 25, 2016 at 11:30 Initial Consult Date 09/24/2016 Type of Consultation: Cardiology Reason for Consultation abnl ecg Referring Provider: BELKIS INTERIANO MD Exam/Review of Systems Vital Signs Vitals Vital Signs Date Time Temp Pulse Resp B/P Pulse Ox O2 Delivery O2 Flow Rate FiO2 09/25/16 16:48 69 09/25/16 16:38 98.3 18 114/61 98 Room Air Intake and Output 09/24/16 09/24/16 09/25/16 15:00 23:00 07:00 Intake Total 500 ml 250 ml 120 ml Output Total 2500 ml Balance -2000 ml 250 ml 120 ml Exam Review of Systems: CONSTITUTIONAL: No fevers, chills. PULMONARY: No sob CARDIOVASCULAR: No chest pain/palpitations GASTROINTESTINAL: No nausea/vomiting. GENITOURINARY: No hematuria/dysuria. MUSCULOSKELETAL: No myagias/arthalgias. PSYCHIATRIC: The patient denies depression. NEUROLOGIC: No weakness Constitutional: alert Psych: no complaints Head: normocephalic ENMT: mucosa pink and moist Neck: jvd (8 cm water), supple Respiratory: diminished breath sounds Cardiovascular: regular rate and rhythm Gastrointestinal: non-tender, soft Musculoskeletal: muscle tone (normal) Extremities: edema (none) Neurological: other (NO focal deficits) Results Result Diagram: 09/24/16 0005 09/24/16 1350 Results 24 hrs Laboratory Tests Test 09/25/16 00:46 09/25/16 07:04 09/25/16 12:14 Creatine Kinase 139 118 114 Creatine Kinase Index 0.4 0.3 0.2 Creatinine Kinase MB (Mass) 0.50 0.36 0.27 Troponin I < 0.012 < 0.012 < 0.012 Triglycerides Level 61 Cholesterol Level 122 LDL Cholesterol, Calculated 79 HDL Cholesterol 31 L Cholesterol/HDL Ratio 3.9 Medications Medications Current Medications Acetaminophen (Tylenol Tab) 650 mg Q8H PRN PO PAIN AND OR ELEVATED TEMP Last administered on 09/24/16 21:53; Admin Dose 650 MG; Start 09/24/16 at 12:30 Aspirin (Aspirin) 81 mg DAILY PO Last administered on 09/25/16 08:38; Admin Dose 81 MG; Start 09/24/16 at 12:30 Atorvastatin Calcium (Lipitor) 40 mg HS PO Last administered on 09/24/16 20:58 ; Admin Dose 40 MG; Start 09/24/16 at 21:00 Cholecalciferol (Vitamin D) 400 units DAILY PO Last administered on 09/25/16 08:38; Admin Dose 400 UNITS; Start 09/24/16 at 14:30 Cinacalcet (Sensipar) 30 mg DAILY PO Last administered on 09/25/16 08:38; Admin Dose 30 MG; Start 09/24/16 at 14:30 Clopidogrel Bisulfate (plaVIX) 75 mg DAILY PO Last administered on 09/25/16 08 :38; Admin Dose 75 MG; Start 09/25/16 at 09:00 Diphenoxylate HCl/ Atropine (Lomotil) 1 tab Q12H PRN PO DIARRHEA; Start at 12:30 Docusate Sodium (Colace) 100 mg DAILY PO Last administered on 09/25/16 08:38; Admin Dose 100 MG; Start 09/25/16 at 09:00 Acetaminophen/ Hydrocodone Bitart ([place] (5/325)) 1 tab Q8H PRN PO pain Last administered on 09/25/16 11:49; Admin Dose 1 TAB; Start 09/24/16 at 12:30 Loratadine (Claritin) 10 mg DAILY PO Last administered on 09/25/16 08:38; Admin Dose 10 MG; Start 09/24/16 at 14:30 Lorazepam (Ativan) 1 mg Q8H PRN PO ANXIETY; Start 09/24/16 at 12:30 Losartan Potassium (Cozaar) 25 mg DAILY PO Last administered on 09/24/16 16:05 ; Admin Dose 25 MG; Start 09/24/16 at 14:30 Multivit/Ca Carb/ B Cmplx/FA/Prenat (Carmina-Boris) 1 tab DAILY PO Last administered on 09/25/16 08:38; Admin Dose 1 TAB; Start 09/24/16 at 12:30 Pantoprazole (Protonix Tab) 40 mg DAILY@06 PO Last administered on 09/25/16 05 :37; Admin Dose 40 MG; Start 09/24/16 at 12:30 Tramadol HCl (Ultram) 50 mg Q8H PRN PO PAIN; Start 09/24/16 at 12:30 Ibuprofen (Motrin) 600 mg Q12H PRN PO PAIN; Start 09/24/16 at 21:00 Carvedilol (Coreg) 12.5 mg BID PO Last administered on 09/24/16 20:58; Admin Dose 12.5 MG; Start 09/24/16 at 12:30 Diphenhydramine HCl (Benadryl) 25 mg Q6H PRN PO ITCHING Last administered on 04:38; Admin Dose 25 MG; Start 09/24/16 at 23:30 KRIS WEISS Sep 25, 2016 19:18
[2016-09-25] MEDS: ATORVASTATIN 40 MG TAB PO SCH (20:34)
--- NOTE | 2016-09-25 21:26 | PN ---
Date/Time of Note Date/Time of Note DATE: 09/25/16 TIME: 21:25 Assessment/Plan VTE Prophylaxis VTE Prophylaxis Intervention: other Lines/Catheters [facility] Saline Lock Urinary Cath still in place: No Assessment/Plan Chief Complaint/Hosp Course ESRD HTN ASHD CAD LEUCOCYTOSIS PLAN HD Problems: Subjective 24 Hr Interval Summary Respiratory: no complaints Cardiovascular: no complaints Exam/Review of Systems Vital Signs Vitals Vital Signs Date Time Temp Pulse Resp B/P Pulse Ox O2 Delivery O2 Flow Rate FiO2 09/25/16 20:26 72 09/25/16 20:00 98.0 18 129/60 98 Room Air Intake and Output 09/24/16 09/24/16 09/25/16 15:00 23:00 07:00 Intake Total 500 ml 250 ml 120 ml Output Total 2500 ml Balance -2000 ml 250 ml 120 ml Exam Respiratory: clear to auscultation Cardiovascular: regular rate and rhythm Gastrointestinal: bowel sounds, soft Extremities: normal pulses Results Result Diagram: 09/24/16 0005 09/24/16 1350 Results 24 hrs Laboratory Tests Test 09/25/16 00:46 09/25/16 07:04 09/25/16 12:14 Creatine Kinase 139 118 114 Creatine Kinase Index 0.4 0.3 0.2 Creatinine Kinase MB (Mass) 0.50 0.36 0.27 Troponin I < 0.012 < 0.012 < 0.012 Triglycerides Level 61 Cholesterol Level 122 LDL Cholesterol, Calculated 79 HDL Cholesterol 31 L Cholesterol/HDL Ratio 3.9 Medications Medications Current Medications Acetaminophen (Tylenol Tab) 650 mg Q8H PRN PO PAIN AND OR ELEVATED TEMP Last administered on 09/24/16 21:53; Admin Dose 650 MG; Start 09/24/16 at 12:30 Aspirin (Aspirin) 81 mg DAILY PO Last administered on 09/25/16 08:38; Admin Dose 81 MG; Start 09/24/16 at 12:30 Atorvastatin Calcium (Lipitor) 40 mg HS PO Last administered on 09/25/16 20:34 ; Admin Dose 40 MG; Start 09/24/16 at 21:00 Cholecalciferol (Vitamin D) 400 units DAILY PO Last administered on 09/25/16 08:38; Admin Dose 400 UNITS; Start 09/24/16 at 14:30 Cinacalcet (Sensipar) 30 mg DAILY PO Last administered on 09/25/16 08:38; Admin Dose 30 MG; Start 09/24/16 at 14:30 Clopidogrel Bisulfate (plaVIX) 75 mg DAILY PO Last administered on 09/25/16 08 :38; Admin Dose 75 MG; Start 09/25/16 at 09:00 Diphenoxylate HCl/ Atropine (Lomotil) 1 tab Q12H PRN PO DIARRHEA; Start at 12:30 Docusate Sodium (Colace) 100 mg DAILY PO Last administered on 09/25/16 08:38; Admin Dose 100 MG; Start 09/25/16 at 09:00 Acetaminophen/ Hydrocodone Bitart ([place] (5/325)) 1 tab Q8H PRN PO pain Last administered on 09/25/16 11:49; Admin Dose 1 TAB; Start 09/24/16 at 12:30 Loratadine (Claritin) 10 mg DAILY PO Last administered on 09/25/16 08:38; Admin Dose 10 MG; Start 09/24/16 at 14:30 Lorazepam (Ativan) 1 mg Q8H PRN PO ANXIETY; Start 09/24/16 at 12:30 Losartan Potassium (Cozaar) 25 mg DAILY PO Last administered on 09/24/16 16:05 ; Admin Dose 25 MG; Start 09/24/16 at 14:30 Multivit/Ca Carb/ B Cmplx/FA/Prenat (Carmina-Boris) 1 tab DAILY PO Last administered on 09/25/16 08:38; Admin Dose 1 TAB; Start 09/24/16 at 12:30 Pantoprazole (Protonix Tab) 40 mg DAILY@06 PO Last administered on 09/25/16 05 :37; Admin Dose 40 MG; Start 09/24/16 at 12:30 Tramadol HCl (Ultram) 50 mg Q8H PRN PO PAIN; Start 09/24/16 at 12:30 Ibuprofen (Motrin) 600 mg Q12H PRN PO PAIN; Start 09/24/16 at 21:00 Carvedilol (Coreg) 12.5 mg BID PO Last administered on 09/25/16 20:35; Admin Dose 12.5 MG; Start 09/24/16 at 12:30 Diphenhydramine HCl (Benadryl) 25 mg Q6H PRN PO ITCHING Last administered on t 04:38; Admin Dose 25 MG; Start 09/24/16 at 23:30 BELKIS INTERIANO MD Sep 25, 2016 21:26
[2016-09-26] VITALS (19 sets, daily range): BP systolic 93–120; BP diastolic 40–68; PULSE 68–75; RESP 17–18
[2016-09-26] MEDS: HYDROCODONE/APAP (5/325) TAB PO PRN ×2 (01:52→23:46)
[2016-09-26] MEDS: PANTOPRAZOLE (EC) 40 MG TAB PO SCH (05:39)
[2016-09-26 07:26] LABS: BASOPHILS % 0.1 % (0.0-2.0); EOSINOPHILS # 0.5 10^3/ul (0.0-0.5); EOSINOPHILS % 5.5 % (0.0-7.0); HEMATOCRIT 25.2 % (37.0-47.0); HEMOGLOBIN 8.5 g/dl (12.0-16.0); LYMPHOCYTES # 2.5 10^3/ul (0.8-2.9); MEAN CORPUSCULAR HEMOGLOBIN 30.5 pg (29.0-33.0); MEAN CORPUSCULAR HGB CONC 33.7 g/dl (32.0-37.0); MEAN CORPUSCULAR VOLUME 90.3 fl (82.0-101.0); MEAN PLATELET VOLUME 10.7 fl (7.4-10.4); MONOCYTE # 0.9 10^3/ul (0.3-0.9); MONOCYTES % 9.5 % (0.0-11.0); NEUTROPHIL # 5.1 10^3/ul (1.6-7.5); NEUTROPHILS % 56.6 % (39.0-77.0); PLATELET COUNT 161 10^3/UL (140-415); RED BLOOD COUNT 2.79 10^6/ul (4.20-5.40); RED CELL DISTRIBUTION WIDTH 11.9 % (11.5-14.5)
[2016-09-26 07:32] LABS: ADD SCAN DIFF NO
[2016-09-26] MEDS: LOSARTAN 25 MG TAB PO SCH (09:00)
[2016-09-26] MEDS: CHOLECALCIFEROL 400 UNITS TAB PO SCH (09:17)
[2016-09-26] MEDS: ASPIRIN 81 MG TAB PO SCH (09:17)
[2016-09-26] MEDS: MULTIVIT/CA CARB/B CMPLX/FA TAB PO SCH (09:17)
[2016-09-26] MEDS: DOCUSATE SODIUM 100 MG CAP PO SCH (09:17)
[2016-09-26] MEDS: CINACALCET 30 MG TAB PO SCH (09:17)
[2016-09-26] MEDS: LORATADINE 10 MG TAB PO SCH (09:17)
[2016-09-26] MEDS: CLOPIDOGREL 75 MG TAB PO SCH (09:17)
[2016-09-26] MEDS: SEVELAMER CARBONATE 0.8 GM PKT PO SCH ×3 (09:17→17:45)
[2016-09-26 15:26] LABS: CALCIUM 7.4 mg/dl (8.4-10.2); CREATININE 7.44 mg/dl (0.44-1.00); POTASSIUM 4.1 mmol/L (3.5-5.1)
--- NOTE | 2016-09-26 17:15 | CONS ---
Date/Time of Note Date/Time of Note DATE: 09/26/16 TIME: 17:11 Assessment/Plan Assessment/Plan Chief Complaint/Hosp Course IMP: 1.abnl ecg-negatve trop x 3/NL EF by echo 08/13 2.Weakness-improved after HD and correction of high K 3.Dizziness-improved after HD 4.ESRD on HD 5.Hyperkalemia-improved after HD 6. anemia 7.HL Recc: -Tele -serial ecg's -Follow K closely -s/p HD with improvement in K -Continue coreg/losartan -Continue asa/plavix -Continue statin -OK for d/c planning from cardiac standpoint Problems: Consultation Date/Type/Reason Admit Date/Time Sep 25, 2016 at 11:30 Initial Consult Date 09/24/2016 Type of Consultation: Cardiology Reason for Consultation abnl ecg Referring Provider: BELKIS INTERIANO MD Exam/Review of Systems Vital Signs Vitals Vital Signs Date Time Temp Pulse Resp B/P Pulse Ox O2 Delivery O2 Flow Rate FiO2 09/26/16 16:32 73 09/26/16 11:51 98.4 17 114/58 98 09/26/16 04:00 Room Air Intake and Output 09/25/16 09/25/16 09/26/16 15:00 23:00 07:00 Intake Total 480 ml 120 ml Balance 480 ml 120 ml Exam Review of Systems: CONSTITUTIONAL: No fevers, chills. PULMONARY: No sob CARDIOVASCULAR: No chest pain/palpitations GASTROINTESTINAL: No nausea/vomiting. GENITOURINARY: No hematuria/dysuria. MUSCULOSKELETAL: No myagias/arthalgias. PSYCHIATRIC: The patient denies depression. NEUROLOGIC: No weakness Constitutional: alert, oriented Psych: no complaints Head: normocephalic ENMT: mucosa pink and moist Neck: jvd (8-9 cm water), supple Respiratory: diminished breath sounds (at bases/B) Cardiovascular: regular rate and rhythm Gastrointestinal: non-tender, soft Musculoskeletal: muscle tone (normal) Extremities: edema (none) Neurological: other (No focal deficits) Results Result Diagram: 09/26/16 0650 09/26/16 1420 Results 24 hrs Laboratory Tests Test 09/26/16 06:50 09/26/16 14:20 White Blood Count 9.0 # Red Blood Count 2.79 L Hemoglobin 8.5 L Hematocrit 25.2 L Mean Corpuscular Volume 90.3 Mean Corpuscular Hemoglobin 30.5 Mean Corpuscular Hemoglobin Concent 33.7 Red Cell Distribution Width 11.9 Platelet Count 161 # Mean Platelet Volume 10.7 H Neutrophils % 56.6 Lymphocytes % 28.0 Monocytes % 9.5 Eosinophils % 5.5 Basophils % 0.1 Nucleated Red Blood Cells % 0.0 Neutrophils # 5.1 Lymphocytes # 2.5 Monocytes # 0.9 Eosinophils # 0.5 Basophils # 0.0 Nucleated Red Blood Cells # 0.0 Sodium Level 133 L Potassium Level 4.1 Chloride Level 91 L Carbon Dioxide Level 30 Anion Gap 16 Blood Urea Nitrogen 31 H Creatinine 7.44 H Glucose Level 127 Calcium Level 7.4 L Medications Medications Current Medications Acetaminophen (Tylenol Tab) 650 mg Q8H PRN PO PAIN AND OR ELEVATED TEMP Last administered on 09/24/16 21:53; Admin Dose 650 MG; Start 09/24/16 at 12:30 Aspirin (Aspirin) 81 mg DAILY PO Last administered on 09/26/16 09:17; Admin Dose 81 MG; Start 09/24/16 at 12:30 Atorvastatin Calcium (Lipitor) 40 mg HS PO Last administered on 09/25/16 20:34 ; Admin Dose 40 MG; Start 09/24/16 at 21:00 Cholecalciferol (Vitamin D) 400 units DAILY PO Last administered on 09/26/16 09:17; Admin Dose 400 UNITS; Start 09/24/16 at 14:30 Cinacalcet (Sensipar) 30 mg DAILY PO Last administered on 09/26/16 09:17; Admin Dose 30 MG; Start 09/24/16 at 14:30 Clopidogrel Bisulfate (plaVIX) 75 mg DAILY PO Last administered on 09/26/16 09 :17; Admin Dose 75 MG; Start 09/25/16 at 09:00 Diphenoxylate HCl/ Atropine (Lomotil) 1 tab Q12H PRN PO DIARRHEA; Start at 12:30 Docusate Sodium (Colace) 100 mg DAILY PO Last administered on 09/26/16 09:17; Admin Dose 100 MG; Start 09/25/16 at 09:00 Acetaminophen/ Hydrocodone Bitart ([place] (5/325)) 1 tab Q8H PRN PO pain Last administered on 09/26/16 01:52; Admin Dose 1 TAB; Start 09/24/16 at 12:30 Loratadine (Claritin) 10 mg DAILY PO Last administered on 09/26/16 09:17; Admin Dose 10 MG; Start 09/24/16 at 14:30 Lorazepam (Ativan) 1 mg Q8H PRN PO ANXIETY; Start 09/24/16 at 12:30 Losartan Potassium (Cozaar) 25 mg DAILY PO Last administered on 09/24/16 16:05 ; Admin Dose 25 MG; Start 09/24/16 at 14:30 Multivit/Ca Carb/ B Cmplx/FA/Prenat (Carmina-Boris) 1 tab DAILY PO Last administered on 09/26/16 09:17; Admin Dose 1 TAB; Start 09/24/16 at 12:30 Pantoprazole (Protonix Tab) 40 mg DAILY@06 PO Last administered on 09/26/16 05 :39; Admin Dose 40 MG; Start 09/24/16 at 12:30 Tramadol HCl (Ultram) 50 mg Q8H PRN PO PAIN; Start 09/24/16 at 12:30 Ibuprofen (Motrin) 600 mg Q12H PRN PO PAIN; Start 09/24/16 at 21:00 Carvedilol (Coreg) 12.5 mg BID PO Last administered on 09/25/16 20:35; Admin Dose 12.5 MG; Start 09/24/16 at 12:30 Diphenhydramine HCl (Benadryl) 25 mg Q6H PRN PO ITCHING Last administered on 04:38; Admin Dose 25 MG; Start 09/24/16 at 23:30 KRIS WEISS Sep 26, 2016 17:15
[2016-09-26] MEDS: ATORVASTATIN 40 MG TAB PO SCH (20:39)
[2016-09-27] VITALS (9 sets, daily range): BP systolic 98–108; BP diastolic 50–57; PULSE 71–76; RESP 17–18
[2016-09-27] MEDS: PANTOPRAZOLE (EC) 40 MG TAB PO SCH (06:06)
[2016-09-27] MEDS: LOSARTAN 25 MG TAB PO SCH (09:07)
[2016-09-27] MEDS: SEVELAMER CARBONATE 0.8 GM PKT PO SCH ×2 (09:07→12:46)
[2016-09-27] MEDS: CINACALCET 30 MG TAB PO SCH (09:07)
[2016-09-27] MEDS: MULTIVIT/CA CARB/B CMPLX/FA TAB PO SCH (09:07)
[2016-09-27] MEDS: ASPIRIN 81 MG TAB PO SCH (09:07)
[2016-09-27] MEDS: CLOPIDOGREL 75 MG TAB PO SCH (09:07)
[2016-09-27] MEDS: CHOLECALCIFEROL 400 UNITS TAB PO SCH (09:07)
[2016-09-27] MEDS: DOCUSATE SODIUM 100 MG CAP PO SCH (09:08)
[2016-09-27] MEDS: LORATADINE 10 MG TAB PO SCH (09:08)
--- NOTE | 2016-09-27 13:03 | PDOCDIS ---
Discharge Instructions CONDITION Patient Condition: Good HOME CARE INSTRUCTIONS: Diet Instructions: Low Fat /CholesterolSpecial Diet: WILL OBTAIN ORDER ACTIVITY: Activity Restrictions: Slowly Increase Activity MAX HERNANDEZ Sep 27, 2016 13:03
--- NOTE | 2016-09-27 13:11 | PN ---
Date/Time of Note Date/Time of Note DATE: 09/27/16 TIME: 13:10 Assessment/Plan VTE Prophylaxis VTE Prophylaxis Intervention: ambulation Lines/Catheters IV [facility] Saline Lock Urinary Cath still in place: No Assessment/Plan Chief Complaint/Hosp Course 1. ESRD 2. HTN 3. Dyslipidemia Problems: Assessment/Plan 1. Discharge home with HD Subjective 24 Hr Interval Summary Constitutional: improved, no complaints Exam/Review of Systems Vital Signs Vitals Vital Signs Date Time Temp Pulse Resp B/P Pulse Ox O2 Delivery O2 Flow Rate FiO2 09/27/16 12:13 73 09/27/16 08:00 98.5 17 107/57 98 Room Air Intake and Output 09/26/16 09/26/16 09/27/16 15:00 23:00 07:00 Intake Total 400 ml 120 ml Output Total 3400 ml Balance -3000 ml 120 ml Exam Constitutional: alert, oriented Psych: no complaints Results Result Diagram: 09/26/16 0650 09/26/16 1420 Results 24 hrs Laboratory Tests Test 09/26/16 14:20 Sodium Level 133 L Potassium Level 4.1 Chloride Level 91 L Carbon Dioxide Level 30 Anion Gap 16 Blood Urea Nitrogen 31 H Creatinine 7.44 H Glucose Level 127 Calcium Level 7.4 L Medications Medications Current Medications Acetaminophen (Tylenol Tab) 650 mg Q8H PRN PO PAIN AND OR ELEVATED TEMP Last administered on 09/24/16 21:53; Admin Dose 650 MG; Start 09/24/16 at 12:30 Aspirin (Aspirin) 81 mg DAILY PO Last administered on 09/27/16 09:07; Admin Dose 81 MG; Start 09/24/16 at 12:30 Atorvastatin Calcium (Lipitor) 40 mg HS PO Last administered on 09/26/16 20:39 ; Admin Dose 40 MG; Start 09/24/16 at 21:00 Cholecalciferol (Vitamin D) 400 units DAILY PO Last administered on 09/27/16 09 :07; Admin Dose 400 UNITS; Start 09/24/16 at 14:30 Cinacalcet (Sensipar) 30 mg DAILY PO Last administered on 09/27/16 09:07; Admin Dose 30 MG; Start 09/24/16 at 14:30 Clopidogrel Bisulfate (plaVIX) 75 mg DAILY PO Last administered on 09/27/16 09: 07; Admin Dose 75 MG; Start 09/25/16 at 09:00 Diphenoxylate HCl/ Atropine (Lomotil) 1 tab Q12H PRN PO DIARRHEA; Start at 12:30 Docusate Sodium (Colace) 100 mg DAILY PO Last administered on 09/27/16 09:08; Admin Dose 100 MG; Start 09/25/16 at 09:00 Acetaminophen/ Hydrocodone Bitart ([place] (5/325)) 1 tab Q8H PRN PO pain Last administered on 09/26/16 23:46; Admin Dose 1 TAB; Start 09/24/16 at 12:30 Loratadine (Claritin) 10 mg DAILY PO Last administered on 09/27/16 09:08; Admin Dose 10 MG; Start 09/24/16 at 14:30 Lorazepam (Ativan) 1 mg Q8H PRN PO ANXIETY; Start 09/24/16 at 12:30 Losartan Potassium (Cozaar) 25 mg DAILY PO Last administered on 09/27/16 09:07 ; Admin Dose 25 MG; Start 09/24/16 at 14:30 Multivit/Ca Carb/ B Cmplx/FA/Prenat (Carmina-Boris) 1 tab DAILY PO Last administered on 09/27/16 09:07; Admin Dose 1 TAB; Start 09/24/16 at 12:30 Pantoprazole (Protonix Tab) 40 mg DAILY@06 PO Last administered on 09/27/16 06: 06; Admin Dose 40 MG; Start 09/24/16 at 12:30 Tramadol HCl (Ultram) 50 mg Q8H PRN PO PAIN; Start 09/24/16 at 12:30 Ibuprofen (Motrin) 600 mg Q12H PRN PO PAIN; Start 09/24/16 at 21:00 Carvedilol (Coreg) 12.5 mg BID PO Last administered on 09/27/16 09:07; Admin Dose 12.5 MG; Start 09/24/16 at 12:30 Diphenhydramine HCl (Benadryl) 25 mg Q6H PRN PO ITCHING Last administered on 04:38; Admin Dose 25 MG; Start 09/24/16 at 23:30 MAX HERNANDEZ Sep 27, 2016 13:11
--- NOTE | 2016-09-27 17:12 | CONS ---
Date/Time of Note Date/Time of Note DATE: 09/27/16 TIME: 17:11 Assessment/Plan Assessment/Plan Additional Assessment/Plan 1.abnl ecg-negatve trop x 3/NL EF by echo 08/13 - rate controlled, con't Rx 2.Weakness-improved after HD and correction of high K 3.Dizziness-improved after HD -better now 4.ESRD on HD 5.Hyperkalemia-improved after HD 6. anemia 7.HL Consultation Date/Type/Reason Admit Date/Time Sep 25, 2016 at 11:30 Initial Consult Date Type of Consultation: Cardiology Referring Provider: BELKIS INTERIANO MD 24 HR Interval Summary Free Text/Dictation NO acute events - stable on tele - no CP now ROS: No fever, no chills, no nausea, no vomiting, no diarrhea/constipation No recent weight changes No chest pain, no PND, no orthopnea No dizziness, blurred vision No thirst, no heat or cold intolerance Exam/Review of Systems Vital Signs Vitals Vital Signs Date Time Temp Pulse Resp B/P Pulse Ox O2 Delivery O2 Flow Rate FiO2 09/27/16 16:18 71 09/27/16 12:00 98.2 17 99/50 99 Room Air Intake and Output 09/26/16 09/26/16 09/27/16 15:00 23:00 07:00 Intake Total 400 ml 120 ml Output Total 3400 ml Balance -3000 ml 120 ml Exam General: WN/WD/NAD, AOx 2-3 HEENT: Unicetric/atraumatic/EOMI NECK: JVD elevated, no thyromegaly Lymph: no lymphadenopathy HEART: regular with no S3, II/ systolic murmur at apex LUNGS: Coarse sounds ABD: soft, NT, ND, +BS : Intact Neuro: non focal SKIN: chronic changes EXT: trace edema Results Result Diagram: 09/26/16 0650 09/26/16 1420 Medications Medications Current Medications Acetaminophen (Tylenol Tab) 650 mg Q8H PRN PO PAIN AND OR ELEVATED TEMP Last administered on 09/24/16 21:53; Admin Dose 650 MG; Start 09/24/16 at 12:30 Aspirin (Aspirin) 81 mg DAILY PO Last administered on 09/27/16 09:07; Admin Dose 81 MG; Start 09/24/16 at 12:30 Atorvastatin Calcium (Lipitor) 40 mg HS PO Last administered on 09/26/16 20:39 ; Admin Dose 40 MG; Start 09/24/16 at 21:00 Cholecalciferol (Vitamin D) 400 units DAILY PO Last administered on 09/27/16 09 :07; Admin Dose 400 UNITS; Start 09/24/16 at 14:30 Cinacalcet (Sensipar) 30 mg DAILY PO Last administered on 09/27/16 09:07; Admin Dose 30 MG; Start 09/24/16 at 14:30 Clopidogrel Bisulfate (plaVIX) 75 mg DAILY PO Last administered on 09/27/16 09: 07; Admin Dose 75 MG; Start 09/25/16 at 09:00 Diphenoxylate HCl/ Atropine (Lomotil) 1 tab Q12H PRN PO DIARRHEA; Start at 12:30 Docusate Sodium (Colace) 100 mg DAILY PO Last administered on 09/27/16 09:08; Admin Dose 100 MG; Start 09/25/16 at 09:00 Acetaminophen/ Hydrocodone Bitart ([place] (5/325)) 1 tab Q8H PRN PO pain Last administered on 09/26/16 23:46; Admin Dose 1 TAB; Start 09/24/16 at 12:30 Loratadine (Claritin) 10 mg DAILY PO Last administered on 09/27/16 09:08; Admin Dose 10 MG; Start 09/24/16 at 14:30 Lorazepam (Ativan) 1 mg Q8H PRN PO ANXIETY; Start 09/24/16 at 12:30 Losartan Potassium (Cozaar) 25 mg DAILY PO Last administered on 09/27/16 09:07 ; Admin Dose 25 MG; Start 09/24/16 at 14:30 Multivit/Ca Carb/ B Cmplx/FA/Prenat (Carmina-Boris) 1 tab DAILY PO Last administered on 09/27/16 09:07; Admin Dose 1 TAB; Start 09/24/16 at 12:30 Pantoprazole (Protonix Tab) 40 mg DAILY@06 PO Last administered on 09/27/16 06: 06; Admin Dose 40 MG; Start 09/24/16 at 12:30 Tramadol HCl (Ultram) 50 mg Q8H PRN PO PAIN; Start 09/24/16 at 12:30 Ibuprofen (Motrin) 600 mg Q12H PRN PO PAIN; Start 09/24/16 at 21:00 Carvedilol (Coreg) 12.5 mg BID PO Last administered on 09/27/16 09:07; Admin Dose 12.5 MG; Start 09/24/16 at 12:30 Diphenhydramine HCl (Benadryl) 25 mg Q6H PRN PO ITCHING Last administered on 04:38; Admin Dose 25 MG; Start 09/24/16 at 23:30 TIMMY BAILEY MD Sep 27, 2016 17:12
--- NOTE | 2016-09-29 15:28 | DS ---
Date/Time of Note Date/Time of Note DATE: 09/29/16 TIME: 15:26 Discharge Summary Admission/Discharge Info Admit Date/Time Sep 25, 2016 at 11:30 Discharge Date/Time Sep 27, 2016 at 17:35 Patient Condition: Serious Consults Dr Leon cardiology Procedures none Hx of Present Illness pt missed 2 HD, felt dizzy, was admitted to hospital . HD performed, pt is stable. Hospital Course 1. ESRD 2. HTN 3. Dyslipidemia Home Meds Active Scripts Acetaminophen* (Tylenol*) 325 Mg Tablet, 2 TAB PO Q8 Y for PAIN AND OR ELEVATED TEMP, #20 TAB Prov:GELY WHITE MD 08/05/16 Acetaminophen* (Tylenol*) 325 Mg Tablet, 2 TAB PO Q8 Y for PAIN AND OR ELEVATED TEMP, #20 TAB Prov:GELY WHITE MD 08/05/16 Clopidogrel Bisulfate (Clopidogrel) 75 Mg Tab, 75 MG PO DAILY for 30 Days Prov:TOAN HECK 02/07/15 [Carvedilol] 6.25 MG TAB No Conflict Check, 12.5 MG PO BID for 30 Days, TAB Prov:TOAN HECK 02/07/15 Atorvastatin Calcium* (Atorvastatin Calcium*) 20 Mg Tab, 40 MG PO HS for 30 Days Prov:TOAN HECK 02/07/15 Tramadol HCl (Tramadol HCl) 50 Mg Tab, 50 MG PO Q8 Y for PAIN, #10 TAB Prov:ROSLYN OLIVARES MD 01/10/15 Reported Medications Loratadine* (Loratadine*) 10 Mg Tablet, 10 MG PO DAILY for ITCHING, #30 TAB 08/23/16 Lorazepam* (Lorazepam*) 1 Mg Tablet, 1 MG PO Q8 Y for ANXIETY, #60 TAB 08/23/16 Ibuprofen* (Ibuprofen*) 600 Mg Tablet, 600 MG PO Q12, TAB 08/23/16 Cinacalcet* (Sensipar*) 30 Mg Tab, 30 MG PO DAILY, TAB 01/10/15 Docusate Sodium* (Docusate Sodium*) 100 Mg Capsule, 100 MG PO DAILY, CAP 01/10/15 Cholecalciferol* (Vitamin D*) 400 Unit Tablet, 400 UNIT PO DAILY, TAB 01/10/15 Megestrol Acetate* (Megestrol Acetate*) 40 Mg Tablet, 40 MG PO BID, TAB 01/10/15 Zolpidem Tartrate* (Ambien*) 5 Mg Tablet, 5 MG PO HS MAY REPEAT X 1 Y for INSOMNIA, TAB 01/10/15 Amino Acids/Protein Hydrolys (Liquacel 100 Liquid Packet) 30 Ml Liquid.pkt, 30 ML PO Q SCHED DIALYSIS TRM 01/10/15 Darbepoetin [place] In Polysorbat (Aranesp) 25 Mcg/Ml Vial, 25 MCG IV WEEKLY ON 1ST TRMT, VIAL 01/10/15 Iron Sucrose* (Venofer*) 100 Mg/5 Ml Vial, 50 MG IV WEEKLY ON 2ND TRMT, VIAL 01/10/15 Paricalcitol* (Zemplar*) 2 Mcg/Ml Vial, 2 MCG IV 1ST, 2ND,3RD TRMT, VIAL 01/10/15 Multivit/Ca Carb/B Cmplx/Fa* (Carmina-Boris*) 1 Tab Tab, 1 TAB PO DAILY, TAB 01/10/15 Sevelamer Carbonate* (Renvela*) 800 Mg Tablet, 800 MG PO TID 07/28/12 Pantoprazole* (Protonix*) 40 Mg Tablet.dr, 40 MG PO DAILY 07/28/12 Losartan Potassium* (Cozaar*) 25 Mg Tablet, 25 MG PO DAILY 07/28/12 Aspirin* (Aspirin* Chew) 81 Mg Tab.chew, 81 MG PO DAILY 07/28/12 Discontinued Reported Medications Hydrocodone/Acetaminophen ([place] 5-325 Tablet) 1 Each Tablet, 1 EACH PO Q8 for PAIN, TAB 08/23/16 Diphenoxylate HCl/Atropine (Lomotil 2.5-0.025 mg Tablet) 1 Each Tablet, 1 TAB PO Q12 Y for DIARRHEA, TAB 08/23/16 Discontinued Scripts Sulfamethoxazole/Trimethoprim* (Bactrim Ds* Tablet) 1 Each Tablet, 1 TAB PO DAILY for 7 Days, TAB Prov:BELKIS INTERIANO MD 08/27/16 Primary Care Provider MD MARY Lopez ANNA Sep 29, 2016 15:27
== END 2016-09-27 17:35 | disposition home or self-care (01) | DRG 640 ==
LOC: E/R 20:59 → MS4 09-24 02:33 → OBSVTOIN 09-25 11:30
PROVIDERS: ADMIT Internal Medicine Nephrology; ATTEND Internal Medicine Nephrology
PROC: 5A1D00Z (ICD-10-PCS; principal; 2016-09-24)
DX: E87.5 Hyperkalemia (principal); N18.6 End stage renal disease; I12.0 Hypertensive chronic kidney disease with stage 5 chronic kidney disease or end stage renal disease; E11.22 Type 2 diabetes mellitus with diabetic chronic kidney disease; R53.1 Weakness; R42 Dizziness and giddiness; D64.9 Anemia, unspecified; I25.10 Atherosclerotic heart disease of native coronary artery without angina pectoris; E78.5 Hyperlipidemia, unspecified; Z99.2 Dependence on renal dialysis
CPT/HCPCS: 36415; 71010; 80048; 80053; 80061; 82550; 82553; 83880; 84484; 85025; 85610; 85730; 90935; 93005; 96374; 99217; G0378; J0610

== ENCOUNTER 2018-01-25 08:49 | Emergency (ER) | END 2018-01-25 11:45 | disposition home or self-care (01) ==